=== PATIENT | male | born 1935 | race Caucasian/White ===

== ENCOUNTER 2018-03-13 21:26 | Inpatient (IN) | payer BC, MEDICARE ==
--- NOTE | 2018-03-13 21:46 | ED ---
General Adult HPI - General Chief complaint: Weakness Stated complaint: weakness Time Seen by Provider: 03/13/18 21:26 Source: patient, EMS, RN notes reviewed Mode of arrival: EMS Limitations: no limitations - History of Present Illness Initial comments: This is an 82-year-old male has a past medical history significant for a stent. Patient states he came to the emergency department up at [facility] today because of feeling weak and having diarrhea for 2 weeks. Patient was diagnosed with an end STEMI and C. diff at the other facility. Patient states he does not have any chest pain or difficulty breathing or shortness of breath. Patient denies any abdominal pain patient denies nausea vomiting at this time. Patient states currently while lying in bed he has no complaint. Patient denies headache patient denies numbness weakness. Patient denies lightheadedness dizziness or near syncopal episode - Related Data Home Medications Medication Instructions Recorded Confirmed Aspirin 81 mg PO DAILY 04/29/15 07/28/15 Fexofenadine HCl [Lisa Allergy] 180 mg PO DAILY 04/29/15 07/28/15 Isosorbide Mononitrate ER [Imdur] 30 mg PO DAILY@1300 04/29/15 07/28/15 Meclizine HCl 25 mg PO BID@1200,1800 04/29/15 07/28/15 Nitroglycerin Sl Tabs [Nitrostat] 0.4 mg SUBLINGUAL Q5M PRN 04/29/15 07/28/15 Meclizine [Antivert] 50 mg PO DAILY 07/28/15 07/28/15 Multivitamin [Men's Multi-Vitamin] 1 each PO DAILY 07/28/15 07/28/15 Sertraline [Zoloft] 50 mg PO DAILY 07/28/15 07/28/15 Simvastatin [Zocor] 20 mg PO HS 07/28/15 07/28/15 Previous Rx's Medication Instructions Recorded predniSONE 10 mg PO DAILY #40 tab 07/31/15 Allergies Allergy/AdvReac Type Severity Reaction Status Date / Time No Known Allergies Allergy Verified 07/28/15 17:39 Review of Systems ROS Statement: Those systems with pertinent positive or pertinent negative responses have been documented in the HPI. ROS Other: All systems not noted in ROS Statement are negative. Past Medical History Past Medical History: Atrial Fibrillation, Heart Failure, GERD/Reflux, Hyperlipidemia, Hypertension, Osteoarthritis (OA), Skin Disorder Additional Past Medical History / Comment(s): Crohn's, vertigo History of Any Multi-Drug Resistant Organisms: None Reported, C-DIFF Past Surgical History: Heart Catheterization, Heart Catheterization With Stent, Joint Replacement Additional Past Surgical History / Comment(s): left knee 11/2014. heart cath about 7-[address] Eduardo, lithotripsy Past Anesthesia/Blood Transfusion Reactions: No Reported Reaction Date of Last Stent Placement:: 2006 Past Psychological History: Anxiety Smoking Status: Former smoker Past Alcohol Use History: None Reported Past Drug Use History: None Reported - Past Family History Mother History Unknown: Yes Family Medical History: No Reported History Additional Family Medical History / Comment(s): never went to doctors Father History Unknown: Yes Family Medical History: No Reported History Additional Family Medical History / Comment(s): ETOH use, unknown hx General Exam - General Exam Comments Initial Comments: GENERAL: Patient is well-developed and well-nourished. Patient is nontoxic and well- hydrated and is in no acute distress. ENT: Neck is soft and supple. No significant lymphadenopathy is noted. Oropharynx is clear. Moist mucous membranes. Neck has full range of motion without eliciting any pain. EYES: The sclera were anicteric and conjunctiva were pink and moist. Extraocular movements were intact and pupils were equal round and reactive to light. Eyelids were unremarkable. PULMONARY: Unlabored respirations. Good breath sounds bilaterally. No audible rales rhonchi or wheezing was noted. CARDIOVASCULAR: There is a regular rate and rhythm without any murmurs gallops or rubs. ABDOMEN: Soft and nontender with normal bowel sounds. No palpable organomegaly was noted. There is no palpable pulsatile mass. SKIN: Skin is clear with no lesions or rashes and otherwise unremarkable. NEUROLOGIC: Patient is alert and oriented x3. Cranial nerves II through XII are grossly intact. Motor and sensory are also intact. Normal speech, volume and content. Symmetrical smile. MUSCULOSKELETAL: Normal extremities with adequate strength and full range of motion. No lower extremity swelling or edema. No calf tenderness. LYMPHATICS: No significant lymphadenopathy is noted PSYCHIATRIC: Normal psychiatric evaluation. Normal interpersonal interactions appears functionally intact in deals appropriately with others. No signs of depression. No signs of anxiety. Limitations: no limitations Course Vital Signs 05/19/18 21:29 Temperature 97.3 F L Pulse Rate 81 Respiratory 18 Rate Blood Pressure 103/58 O2 Sat by Pulse 98 Oximetry Medical Decision Making - Medical Decision Making EKG shows normal sinus rhythm at 80 bpm MS interval is 186 QRS is 82 QT interval is 426 QTC is 491. Patient's EKG shows ST segment depression in leads 1 and aVL as well as leads V3 through V6. I checked an old EKG and those changes were present in 2014. - Lab Data Result diagrams: 03/13/18 21:46 03/13/18 21:46 Lab Results 03/13/18 03/13/18 03/13/18 Range/Units 21:46 21:46 21:46 WBC 27.7 H* (3.8-10.6) k/uL RBC 4.78 (4.30-5.90) m/uL Hgb 13.3 (13.0-17.5) gm/dL Hct 39.2 (39.0-53.0) % MCV 82.0 (80.0-100.0) fL MCH 27.9 (25.0-35.0) pg MCHC 34.0 (31.0-37.0) g/dL RDW 16.4 H (11.5-15.5) % Plt Count 335 (150-450) k/uL Neutrophils % 87 % Lymphocytes % 9 % Monocytes % 3 % Eosinophils % 1 % Basophils % 0 % Neutrophils # 24.0 H (1.3-7.7) k/uL Lymphocytes # 2.4 (1.0-4.8) k/uL Monocytes # 0.8 (0-1.0) k/uL Eosinophils # 0.2 (0-0.7) k/uL Basophils # 0.0 (0-0.2) k/uL Manual Slide Review Performed Toxic Vacuolation Present Polychromasia Present Poikilocytosis (manual Present Anisocytosis Slight Sodium 138 (137-145) mmol/L Potassium 2.0 L* (3.5-5.1) mmol/L Chloride 98 (98-107) mmol/L Carbon Dioxide 27 (22-30) mmol/L Anion Gap 13 mmol/L BUN 21 H (9-20) mg/dL Creatinine 1.10 (0.66-1.25) mg/dL Est GFR (CKD-EPI)AfAm 73 (>60 ml/min/1.73 sqM) Est GFR (CKD-EPI)NonAf 63 (>60 ml/min/1.73 sqM) Glucose 113 H (74-99) mg/dL Calcium 7.7 L (8.4-10.2) mg/dL Total Bilirubin 0.6 (0.2-1.3) mg/dL AST 22 (17-59) U/L ALT 26 (21-72) U/L Alkaline Phosphatase 99 (38-126) U/L Troponin I 0.226 H* (0.000-0.034) ng/mL Total Protein 5.3 L (6.3-8.2) g/dL Albumin 2.6 L (3.5-5.0) g/dL Disposition Clinical Impression: Clostridium difficile colitis, Non-STEMI (non-ST elevated myocardial infarction ) Disposition: ADMITTED IP TO THIS HOSP Referrals: Preston Velasquez MD [Primary Care Provider] - 1-2 days Time of Disposition: 23:20
[2018-03-13 22:10] LABS: Anisocytosis Slight; Basophils % (A) 0 %; Eosinophils # (A) 0.2 k/uL (0-0.7); Eosinophils % (A) 1 %; HCT 39.2 % (39.0-53.0); HGB 13.3 gm/dL (13.0-17.5); Lymphocytes # (A) 2.4 k/uL (1.0-4.8); Lymphocytes % (A) 9 %; MCH 27.9 pg (25.0-35.0); Mean Platelet Volume 6.4; Monocytes # (A) 0.8 k/uL (0-1.0); Monocytes % (A) 3 %; Neutrophils % (A) 87 %; Platelet Count 335 k/uL (150-450); RBC 4.78 m/uL (4.30-5.90); RDW 16.4 % (11.5-15.5)
[2018-03-13 22:13] LABS: WBC 27.7 k/uL (3.8-10.6)
[2018-03-13 22:18] LABS: Albumin 2.6 g/dL (3.5-5.0); Calcium 7.7 mg/dL (8.4-10.2); Total Bilirubin 0.6 mg/dL (0.2-1.3); Total Protein 5.3 g/dL (6.3-8.2)
[2018-03-13 22:53] LABS: Polychromasia Present
[2018-03-13 22:55] LABS: Poikilocytosis (M) Present
[2018-03-13 22:56] LABS: Toxic Vacuolation Present
[2018-03-13] MEDS ORDERED: ACETAMINOPHEN TAB 325 MG TAB PO STA (22:59)
[2018-03-13] MEDS ORDERED: NITROGLYCERIN SL TABS 0.4 MG TAB SUBLINGUAL PRN (23:21)
[2018-03-13] MEDS ORDERED: HEPARIN SODIUM,PORCINE/D5W PMX 25,000 UNIT in DEXTROSE/WATER 1 500ML.BAG IV SCH (23:45)
[2018-03-14] MEDS: NITROGLYCERIN OINT 1 INCH/GM PACKET TOPICAL SCH ×3 (00:43→12:37)
[2018-03-14 04:52] LABS: Anisocytosis Slight; Basophils % (A) 0 %; Eosinophils # (A) 0.2 k/uL (0-0.7); Eosinophils % (A) 1 %; HCT 39.3 % (39.0-53.0); HGB 12.8 gm/dL (13.0-17.5); Lymphocytes # (A) 1.7 k/uL (1.0-4.8); Lymphocytes % (A) 7 %; MCH 27.4 pg (25.0-35.0); MCHC 32.5 g/dL (31.0-37.0); MCV 84.3 fL (80.0-100.0); Mean Platelet Volume 6.5; Monocytes # (A) 1.1 k/uL (0-1.0); Monocytes % (A) 4 %; Neutrophils # (A) 22.6 k/uL (1.3-7.7); Neutrophils % (A) 88 %; Platelet Count 291 k/uL (150-450); RBC 4.67 m/uL (4.30-5.90); RDW 16.5 % (11.5-15.5)
[2018-03-14 05:14] LABS: Creatine Kinase <20 U/L (55-170)
[2018-03-14 05:16] LABS: Calcium 7.6 mg/dL (8.4-10.2)
[2018-03-14 05:23] LABS: Potassium 2.1 mmol/L (3.5-5.1)
[2018-03-14 05:27] LABS: Creatine Kinase MB 0.5 ng/mL (0.0-2.4)
[2018-03-14 05:31] LABS: Troponin I 0.179 ng/mL (0.000-0.034)
[2018-03-14 05:37] LABS: WBC 25.8 k/uL (3.8-10.6)
[2018-03-14] MEDS: POTASSIUM CHLORIDE ER 20 MEQ TAB.ER PO SCH ×5 (06:15→22:03)
[2018-03-14] MEDS ORDERED: ASPIRIN 325 MG TAB PO SCH (09:00)
[2018-03-14] MEDS: metroNIDAZOLE 500 MG TAB PO SCH ×4 (09:02→20:19)
[2018-03-14] MEDS ORDERED: Potassium Replacement Protocol 1 EACH MISC MISCELLANE PRN (10:41)
[2018-03-14 12:08] LABS: Creatine Kinase <20 U/L (55-170)
[2018-03-14 12:20] LABS: Creatine Kinase MB 0.5 ng/mL (0.0-2.4)
[2018-03-14 12:35] LABS: Troponin I 0.122 ng/mL (0.000-0.034)
[2018-03-14] MEDS: POTASSIUM CHLORIDE 10 MEQ in WATER FOR INJECTION 1 100ML.BAG IVPB SCH ×3 (12:38→17:48)
--- NOTE | 2018-03-14 15:02 | P.CRDCN ---
History of Present Illness History of present illness: Mr. Rodriguez is a pleasant 82-year-old male past medical history significant for coronary artery disease status post stenting of the distal circumflex 2006, paroxysmal atrial fibrillation on long-term anticoagulation, diastolic heart failure dyslipidemia and hypertension. We've been asked to see him in consultation significant elevated troponin levels. He initially presented to [facility] with symptoms of increased weakness and diarrhea 2 weeks. At that time a troponin was checked and came to be elevated. They transferred him here on a heparin infusion for evaluation per cardiology. At the time of my exam he is seen sitting in bed comfortably in no acute distress. He denies ever having had symptoms of chest pain, shortness of breath, dizziness, palpitations, diaphoresis or nausea/vomiting. EKG on arrival reveals sinus mechanism with nonspecific ST abnormalities with upsloping ST depression in lateral leads which is consistent with previous EKG. Laboratory data reviewed, WBC 25.8, hemoglobin 12.8, platelets 291, sodium 139, potassium 2.1 after supplementation, creatinine 1.1, troponin 0.226, 0.179, 0.122. Current cardiac medications include Imdur 30 mg daily, simvastatin 20 mg daily, aspirin 81 mg daily, Lasix 40 mg twice a day and Eliquis 5 mg twice a day. Most recent echocardiogram from 2015 reveals preserved left ventricular systolic function with ejection fraction 60-65%. Review of Systems At the time of my exam: CONSTITUTIONAL: Denies fever. Denies chills. EYES: Denies blurred vision. Denies vision changes. Denies eye pain. EARS, NOSE, MOUTH & THROAT: Denies headache. Denies sore throat. Denies ear pain. CARDIOVASCULAR: Denies chest pain. Denies shortness of breath. Denies orthopnea. Denies PND. Denies palpitations. RESPIRATORY: Denies cough. GASTROINTESTINAL: Denies abdominal pain. Complains of diarrhea. Denies constipation. Denies nausea. Denies vomiting. MUSCULOSKELETAL: Denies myalgias. INTEGUMENTARY: Denies pruitis. Denies rash. NEUROLOGIC: Denies numbness. Denies tingling. Denies weakness. PSYCHIATRIC: Denies anxiety. Denies depression. ENDOCRINE: Denies fatigue. Denies weight change. Denies polydipsia. Denies polyurina. GENITOURINARY: Denies burning, hematuria or urgency with micturation. HEMATOLOGIC: Denies history of anemia. Denies bleeding. Past Medical History Past Medical History: Atrial Fibrillation, Heart Failure, GERD/Reflux, Hyperlipidemia, Hypertension, Osteoarthritis (OA), Skin Disorder Additional Past Medical History / Comment(s): Crohn's, vertigo History of Any Multi-Drug Resistant Organisms: C-DIFF Date of last positivie culture/infection: 03/14 MDRO Source:: Fecal Past Surgical History: Heart Catheterization, Heart Catheterization With Stent, Joint Replacement Additional Past Surgical History / Comment(s): left knee 11/2014. heart cath about [address] Eduardo, lithotripsy Past Anesthesia/Blood Transfusion Reactions: No Reported Reaction Date of Last Stent Placement:: 2006 Past Psychological History: Anxiety Smoking Status: Never smoker Past Alcohol Use History: None Reported Past Drug Use History: None Reported - Past Family History Mother History Unknown: Yes Family Medical History: No Reported History Additional Family Medical History / Comment(s): never went to doctors Father History Unknown: Yes Family Medical History: No Reported History Additional Family Medical History / Comment(s): ETOH use, unknown hx Medications and Allergies Home Medications Medication Instructions Recorded Confirmed Type Aspirin 81 mg PO DAILY 04/29/15 03/14/18 History Fexofenadine HCl [Lisa Allergy] 180 mg PO DAILY 04/29/15 03/14/18 History Isosorbide Mononitrate ER [Imdur] 30 mg PO DAILY 04/29/15 03/14/18 History Nitroglycerin Sl Tabs [Nitrostat] 0.4 mg SUBLINGUAL Q5M PRN 04/29/15 03/14/18 History Multivitamin [Men's Multi-Vitamin] 1 tab PO DAILY 07/28/15 03/14/18 History Sertraline [Zoloft] 50 mg PO HS 07/28/15 03/14/18 History Simvastatin [Zocor] 20 mg PO HS 07/28/15 03/14/18 History ALPRAZolam [Xanax] 0.125 mg PO HS PRN 03/14/18 03/14/18 History Apixaban [Eliquis] 5 mg PO BID 03/14/18 03/14/18 History Balsalazide Disodium [Colazal] 1,500 mg PO AC-TID 03/14/18 03/14/18 History Furosemide [Lasix] 40 mg PO BID 03/14/18 03/14/18 History Ranitidine HCl [Zantac] 150 mg PO BID PRN 03/14/18 03/14/18 History Allergies Allergy/AdvReac Type Severity Reaction Status Date / Time No Known Allergies Allergy Verified 03/14/18 13:15 Physical Exam Vitals: Vital Signs Temp Pulse Pulse Resp BP BP Pulse Ox 03/14/18 12:00 70 16 103/57 99 03/14/18 08:00 74 16 112/57 100 03/14/18 04:00 98.4 F 68 18 99/55 95 03/13/18 23:47 98.0 F 72 16 108/55 99 03/13/18 23:33 98.2 F 73 18 106/46 96 03/13/18 23:21 96 03/13/18 21:29 97.3 F L 81 18 103/58 98 Intake and Output 03/13/18 03/14/18 03/14/18 22:59 06:59 14:59 Output Total 175 Balance -175 Output: Urine 175 Other: Voiding Method Diaper Diaper # Voids 1 # Bowel Movements 1 Weight 81.647 kg 81 kg Blood pressure 130/57 heart rate 70 afebrile maintaining oxygen saturation on room air GENERAL: This is a 82-year-old male in no apparent distress at the time of my examination. HEENT: Head is atraumatic, normocephalic. Pupils are equal, round. Sclerae anicteric. Conjunctivae are clear. Mucous membranes of the mouth are moist. Neck is supple. There is no jugular venous distention. No carotid bruit is heard. LUNGS: Clear to auscultation no wheezes, rales or rhonchi. No chest wall tenderness is noted on palpation or with deep breathing. HEART: Regular rate and rhythm with systolic murmur at the base, no rubs or gallops. S1 and S2 heard. ABDOMEN: Soft, nontender. Bowel sounds are heard. No organomegaly noted. EXTREMITIES: No evidence of peripheral edema and no calf tenderness noted. VASCULAR: Radial and dorsalis pedis pulses palpated, no evidence of clubbing. NEUROLOGIC: Patient is awake, alert and oriented x3. Results 03/14/18 04:28 03/14/18 04:28 Cardiac Enzymes 03/13/18 03/13/18 03/14/18 Range/Units 21:46 21:46 04:28 AST 22 (17-59) U/L CK-MB (CK-2) 0.5 (0.0-2.4) ng/mL Troponin I 0.226 H* 0.179 H* (0.000-0.034) ng/mL 03/14/18 Range/Units 11:04 AST (17-59) U/L CK-MB (CK-2) 0.5 (0.0-2.4) ng/mL Troponin I 0.122 H* (0.000-0.034) ng/mL Coagulation 03/14/18 Range/Units 04:35 APTT 66.4 H (22.0-30.0) sec Lipids 03/14/18 Range/Units 04:28 Triglycerides 87 (<150) mg/dL Cholesterol 63 (<200) mg/dL HDL Cholesterol 21 L (40-60) mg/dL CBC 03/13/18 03/14/18 Range/Units 21:46 04:28 WBC 27.7 H* 25.8 H* (3.8-10.6) k/uL RBC 4.78 4.67 (4.30-5.90) m/uL Hgb 13.3 12.8 L (13.0-17.5) gm/dL Hct 39.2 39.3 (39.0-53.0) % Plt Count 335 291 (150-450) k/uL Comprehensive Metabolic Panel 03/13/18 03/14/18 Range/Units 21:46 04:28 Sodium 138 139 (137-145) mmol/L Potassium 2.0 L* 2.1 L* (3.5-5.1) mmol/L Chloride 98 96 L (98-107) mmol/L Carbon Dioxide 27 30 (22-30) mmol/L BUN 21 H 22 H (9-20) mg/dL Creatinine 1.10 1.10 (0.66-1.25) mg/dL Glucose 113 H 100 H (74-99) mg/dL Calcium 7.7 L 7.6 L (8.4-10.2) mg/dL AST 22 (17-59) U/L ALT 26 (21-72) U/L Alkaline Phosphatase 99 (38-126) U/L Total Protein 5.3 L (6.3-8.2) g/dL Albumin 2.6 L (3.5-5.0) g/dL Current Medications Generic Name Dose Route Start Last Admin Trade Name Freq PRN Reason Stop Dose Admin Aspirin 81 mg 03/15/18 09:00 Aspirin PO DAILY AVERY Potassium Chloride 10 meq/ IV 100 mls @ 100 mls/hr 03/14/18 12:00 03/14/18 12 :38 Solution IVPB 03/14/18 14:59 100 mls/hr Q1H AVERY Administration Metronidazole 500 mg 03/14/18 09:00 03/14/18 12:37 Flagyl PO 500 mg QID AVERY Administration Miscellaneous Information 1 each 03/14/18 10:41 Potassium Per Protocol MISCELLANE DAILY PRN Per Protocol Protocol Nitroglycerin 1 inch 03/14/18 00:00 03/14/18 12:37 Nitro-Bid Oint TOPICAL 1 inch Q6HR AVERY Administration Nitroglycerin 0.4 mg 03/13/18 23:21 Nitrostat SUBLINGUAL Q5M PRN Chest Pain Intake and Output 03/13/18 03/14/18 03/14/18 22:59 06:59 14:59 Output Total 175 Balance -175 Output: Urine 175 Other: Voiding Method Diaper Diaper # Voids 1 # Bowel Movements 1 Weight 81.647 kg 81 kg 03/14/18 04:28 03/14/18 04:28 Assessment and Plan Assessment: ASSESSMENT 1. Severe hypokalemia 2. Leukocytosis 3. Paroxysmal atrial fibrillation on long-term anticoagulation currently maintaining sinus mechanism 4. Mild troponin leak not indicative of an acute coronary event. 5. Clostridium difficile with diarrhea 2 weeks 6. History of coronary artery disease with angioplasty of the distal circumflex artery 7. Hypertension 8. Dyslipidemia PLAN Obtain 2-D echocardiogram and Doppler study to assess cardiac structure and function. Discontinue heparin infusion as this is not an acute coronary event. Replace potassium per protocol. Repeat potassium Ongoing level this evening.telemetry monitoring for an acute arrhythmia. Resume Lasix 40 mg twice a day, aspirin 81 mg daily, Zocor 20 mg daily, Imdur 30 mg daily andEliquis 5 mg BID. Ongoing medical management of leukocytosis and C. diff. Thank you kindly for this consultation. Nurse Practitioner note has been reviewed, I agree with a documented findings and plan of care. Patient was seen and examined.
[2018-03-14] MEDS: FUROSEMIDE 40 MG TAB PO SCH (16:22)
[2018-03-14] MEDS ORDERED: ALPRAZolam 0.25 MG TAB PO PRN (20:19)
[2018-03-14] MEDS: APIXABAN 5 MG TAB PO SCH (20:19)
[2018-03-14] MEDS ORDERED: NITROGLYCERIN SL TABS 0.4 MG TAB SUBLINGUAL PRN (20:19)
[2018-03-14] MEDS: ATORVASTATIN 10 MG TAB PO SCH (20:19)
[2018-03-14] MEDS ORDERED: CALCIUM CARBONATE 500 MG CHEWABLE PO PRN (20:22)
[2018-03-14] MEDS ORDERED: ONDANSETRON 4 MG/2 ML VIAL IVP PRN (20:22)
[2018-03-14] MEDS ORDERED: NALOXONE 0.4 MG/ML 1 ML VIAL IV PRN (20:22)
[2018-03-14] MEDS ORDERED: MELATONIN 3 MG TABLET PO PRN (20:22)
[2018-03-14] MEDS ORDERED: LACTATED RINGERS 1,000 ML IV SCH (20:45)
[2018-03-14] MEDS: SERTRALINE 50 MG TAB PO SCH (21:24)
--- NOTE | 2018-03-14 21:54 | HP ---
HISTORY AND PHYSICAL DATE OF ADMISSION: 03/13/18 DATE OF SERVICE: 03/14/18 PRESENTING COMPLAINT: Diarrhea, weak and tired. HISTORY OF PRESENTING COMPLAINT: This is a pleasant 82-year-old patient who was transferred from [facility] to the ER. The patient follows with Dr. Velasquez. Chronic stable medical conditions include atrial fibrillation, congestive heart failure, GERD, hypertension, hyperlipidemia, osteoarthritis, coronary artery disease with stent. The patient was then in [facility] with C diff and then was discharged. The patient continues to have diarrhea a few times a day, 2 times a day and presented there. Appetite was low, having feeling weak tired and falls. Patient also was found to have a troponin of 0.257. There was a concern for acute AK. Hence patient was transferred down here. The patient's stool is positive for C diff. The patient did tolerate some diet, feeling weak and tired. Denies any chest pain or short of breath. Just weak, tired and run down. Also having some abdominal pain. No nausea, no vomiting. REVIEW OF SYSTEMS: Constitutional: Weak and tired. HEENT: Decreased hearing. Respiratory none. Cardiovascular none. Gastrointestinal as above. Genitourinary none. Musculoskeletal: Arthritic pain in the joints. The patient has got a brace in the right knee. Hematologic: None. Lymphatics none. Psychiatry none. Neurological none. PAST MEDICAL HISTORY: Atrial fibrillation CHF, GERD, hypertension, hyperlipidemia, osteoarthritis, Crohn's, coronary artery disease with stent, recent C. diff. PAST SURGICAL HISTORY: Cardiac cath with stent, left knee replaced, heart catheterization [address] Eduardo, lithotripsy. SOCIAL HISTORY: Never smoked. Alcohol rarely. Lives at [facility]. FAMILY HISTORY: Reviewed. Noncontributory to presentation. HOME MEDICATIONS: 1. Zantac 150 mg b.i.d. p.r.n. 2. Xanax 0.125 p.o. q.h.s. p.r.n. 3. Lasix 40 mg p.o. b.i.d. 4. Lisa 180 mg p.o. daily. 5. 1500 mg p.o. a.c. t.i.d. 6. Aspirin 81 mg p.o. daily. 7. Eliquis 5 mg p.o. b.i.d. 8. Zocor 20 mg q.h.s. 9. Zoloft 50 mg q.h.s. 10.Nitrostat 0.4 sublingual q.5 p.r.n. 11.Men's multivitamin 1 tablet p.o. daily. 12.Imdur ER 30 mg p.o. daily. ALLERGIES: None. PHYSICAL EXAMINATION: Vital signs on presentation, temperature 97.3, pulse 81, respirations 18, blood pressure 113/58, pulse ox 98% on 2 L. GENERAL APPEARANCE: Average build, lying in bed, tired appearing. Eyes pupils are equal. Conjunctivae normal. HEENT: External appearance of nose and ears normal. Oral cavity dry. Hearing decreased. Neck JVD unable to assess. Mass not palpable. Respiratory effort normal. Lungs decreased breath sounds. Cardiovascular 1st and 2nd sounds no edema. ABDOMEN: Soft, minimal tenderness. No guarding or rigidity. Liver and spleen not palpable. Lymphatics: No lymph nodes palpable in the neck and axilla. Psychiatry: The patient thinks he has at the hospital, not sure about the year, month. Neurological: Pupils equal. No facial asymmetry. Power and sensation grossly intact. Extremities: Brace on the right knee. INVESTIGATIONS: White count 27.7, hemoglobin 13.3, platelets 335, potassium 2, BUN 21, creatinine 1.10, troponin 0.226, 0.179 and 0.122. Albumin 2.6. C diff positive. ASSESSMENT: 1. Acute C diff colitis in a patient recently treated for the same with relapse. 2. Troponin leak probably from hemodynamic instability. I doubt acute myocardial infarction. 3. Hypoalbuminemia, probably an acute phase reactant. 4. Severe hypokalemia from diarrhea. 5. Paroxysmal atrial fibrillation currently in sinus rhythm. 6. Chronic congestive heart failure EF not known. 7. Gastroesophageal reflux disease. 8. Essential hypertension. 9. Hyperlipidemia. 10.Primary osteoarthritis. 11.Coronary artery disease with stent. 12.Gait dysfunction uses a walker. PLAN: At this point, patient will be started on oral vancomycin. Home medications resumed. The patient will be gently hydrated. Will be care careful given that the patient has a history of congestive heart failure. Care was discussed with the patient. Questions were answered. Copy to Dr. Velasquez. Potassium will be aggressively replaced. MMODL / IJN: [id number] /
[2018-03-14] MEDS ORDERED: LACTATED RINGERS 1,000 ML with POTASSIUM CHLORIDE 20 MEQ IV SCH ×2 (22:00)
[2018-03-14] MEDS: VANCOMYCIN ORAL SOLUTION 250 MG/5 ML BOTTLE PO SCH ×2 (22:02→23:09)
[2018-03-15] MEDS: POTASSIUM CHLORIDE ER 20 MEQ TAB.ER PO SCH ×5 (01:43→22:10)
[2018-03-15] MEDS: VANCOMYCIN ORAL SOLUTION 250 MG/5 ML BOTTLE PO SCH ×4 (05:12→23:57)
[2018-03-15] MEDS: BALSALAZIDE DISODIUM 750 MG CAPSULE PO SCH ×3 (06:07→18:27)
[2018-03-15 07:47] LABS: Calcium 7.7 mg/dL (8.4-10.2); Potassium 3.2 mmol/L (3.5-5.1)
[2018-03-15] MEDS ORDERED: ASPIRIN 81 MG PO SCH (09:00)
[2018-03-15] MEDS: ISOSORBIDE MONONITRATE ER 30 MG TAB.ER.24H PO SCH ×2 (09:33→11:22)
[2018-03-15] MEDS: APIXABAN 5 MG TAB PO SCH ×2 (09:33→21:13)
[2018-03-15] MEDS: ASPIRIN 81 MG PO SCH (09:33)
[2018-03-15] MEDS ORDERED: Potassium Replacement Protocol 1 EACH MISC MISCELLANE PRN (09:47)
[2018-03-15] MEDS: FUROSEMIDE 40 MG TAB PO SCH ×2 (11:41→16:20)
[2018-03-15] MEDS: POTASSIUM CHLORIDE 10 MEQ in WATER FOR INJECTION 1 100ML.BAG IVPB SCH ×2 (11:41→12:38)
[2018-03-15] MEDS: LACTATED RINGERS 1,000 ML IV SCH (14:18)
--- NOTE | 2018-03-15 15:31 | P.PN ---
Subjective Progress Note Date: 03/15/18 Mr. Rodriguez is a pleasant 82-year-old male past medical history significant for coronary artery disease status post stenting of the distal circumflex 2006, paroxysmal atrial fibrillation on long-term anticoagulation, diastolic heart failure dyslipidemia and hypertension. We've been asked to see him in consultation significant elevated troponin levels. He initially presented to [facility] with symptoms of increased weakness and diarrhea 2 weeks. At that time a troponin was checked and came to be elevated. They transferred him here on a heparin infusion for evaluation per cardiology. At the time of my exam he is seen sitting in bed comfortably in no acute distress. He denies ever having had symptoms of chest pain, shortness of breath, dizziness, palpitations, diaphoresis or nausea/vomiting.EKG on arrival reveals sinus mechanism with nonspecific ST abnormalities with upsloping ST depression in lateral leads which is consistent with previous EKG. Laboratory data reviewed, WBC 25.8, hemoglobin 12.8, platelets 291, sodium 139, potassium 2.1 after supplementation, creatinine 1.1, troponin 0.226, 0.179, 0.122. Continue current cardiac medications include Imdur 30 mg daily, simvastatin 20 mg daily, aspirin 81 mg daily, Lasix 40 mg twice a day and Eliquis 5 mg twice a day.Most recent echocardiogram from 2014 reveals preserved left ventricular systolic function with ejection fraction 60-65%. 03/15/2018 Patient was seen and examined this morning, he is positive for C. diff. Echocardiogram with Doppler study remains pending currently in normal sinus rhythm. I pressure 100/50 with a heart rate in the 60s. Sodium 136, potassium 3.2 which we have replaced. Objective - Vital Signs Vital signs: Vital Signs Temp 97.1 F L 03/15/18 12:00 Pulse 63 03/15/18 12:00 Resp 16 03/15/18 12:00 BP 99/51 03/15/18 12:00 Pulse Ox 97 03/15/18 12:00 Intake & Output 03/14/18 03/15/18 03/15/18 18:59 06:59 18:59 Intake Total 1620 640 700 Balance 1620 640 700 Weight 81 kg Intake: IV 400 Lactated Ringers 1,000 ml 400 @ 50 mls/hr IV .Q20H [facility] Rx#:[id number] Intake, IV Titration 400 Amount Heparin Sodium,Porcine/ 0 D5w Pmx 25,000 unit In Dextrose/Water 1 500ml. bag @ 12 UNITS/KG/HR 19. 59 mls/hr IV .Q24H [facility] Rx #:[id number] Lactated Ringers 1,000 ml 400 @ 50 mls/hr IV .[id number] [facility] with Potassium Chloride 20 meq Rx#: [id number] Oral 1620 240 300 Other: Voiding Method Diaper Diaper # Voids 1 # Bowel Movements 2 3 - Exam GENERAL: This is a 82-year-old male in no apparent distress at the time of my examination. HEENT: Head is atraumatic, normocephalic. Pupils are equal, round. Sclerae anicteric. Conjunctivae are clear. Mucous membranes of the mouth are moist. Neck is supple. There is no jugular venous distention. No carotid bruit is heard. LUNGS: Clear to auscultation no wheezes, rales or rhonchi. No chest wall tenderness is noted on palpation or with deep breathing. HEART: Regular rate and rhythm with systolic murmur at the base, no rubs or gallops. S1 and S2 heard. ABDOMEN: Soft, nontender. Bowel sounds are heard. No organomegaly noted. EXTREMITIES: No evidence of peripheral edema and no calf tenderness noted. VASCULAR: Radial and dorsalis pedis pulses palpated, no evidence of clubbing. NEUROLOGIC: Patient is awake, alert and oriented x3. - Labs CBC & Chem 7: 03/14/18 04:28 03/15/18 06:24 Labs: Abnormal Lab Results - Last 24 Hours (Table) 03/14/18 03/15/18 Range/Units 19:52 06:24 Sodium 136 L (137-145) mmol/L Potassium 2.4 L* 3.2 L (3.5-5.1) mmol/L Calcium 7.7 L (8.4-10.2) mg/dL Assessment and Plan Plan: ASSESSMENT 1. Severe hypokalemia 2. Leukocytosis 3. Paroxysmal atrial fibrillation on long-term anticoagulation currently maintaining sinus mechanism 4. Mild troponin leak not indicative of an acute coronary event. 5. Clostridium difficile with diarrhea 2 weeks 6. History of coronary artery disease with angioplasty of the distal circumflex artery 7. Hypertension 8. Dyslipidemia Plan We will review the echocardiogram with Doppler study. Continue to replace potassium. If the patient's LV function is normal we will follow him along with you now on an as-needed basis only, please don't hesitate to call with any questions. DNP note has been reviewed, I agree with a documented findings and plan of care. Patient was seen and examined.
--- NOTE | 2018-03-15 16:55 | PN ---
PROGRESS NOTE DATE OF SERVICE: 03/15/2018 PRESENTING COMPLAINT: Diarrhea, weak and tired. INTERVAL HISTORY: This is a patient who presented with acute C difficile colitis and severe hypokalemia. Abdominal pain is better; still having loose stools, though a shade better. Feeling weak and tired. Did tolerate some diet. REVIEW OF SYSTEMS: Done for constitutional, cardiovascular, GI, pulmonary; relevant findings as above. CURRENT MEDICATIONS: Reviewed. They include vancomycin. PHYSICAL EXAMINATION: Temperature 97.1, pulse 63, respiration 16, blood pressure 99/51, pulse ox 97% on room air. GENERAL APPEARANCE: Lying in bed, awake. Tired-appearing. EYES: Pupils equal. Conjunctivae normal. HEENT: External appearance of nose and ears normal. Oral cavity normal. Hearing decreased. NECK: JVD unable to assess. Mass not palpable. RESPIRATORY: Effort normal. LUNGS: Decreased breath sounds. CARDIOVASCULAR: First and second sounds normal. No edema. ABDOMEN: Soft. No tenderness. Liver and spleen not palpable. PSYCHIATRY: Awake. Answering simple questions. INVESTIGATIONS: Potassium 3.2, BUN 18, creatinine 1.0. ASSESSMENT: 1. Acute severe Clostridium difficile colitis with a relapse; patient recently treated for the same. 2. Troponin leak, probably from hemodynamic instability. Doubt acute myocardial infarction. 3. Hypoalbuminemia, probably an acute phase reactant. 4. Severe hypokalemia from diarrhea, slow to respond. 5. Paroxysmal atrial fibrillation, currently in sinus rhythm. 6. Chronic congestive heart failure, ejection fraction not known. 7. Gastroesophageal reflux disease. 8. Essential hypertension. 9. Hyperlipidemia. 10.Primary osteoarthritis. 11.Coronary artery disease with stent. 12.Gait dysfunction; uses a walker. PLAN: Patient has responded somewhat. Continue current medication and treatment plan, including vancomycin. Potassium is being aggressively replaced. Care was discussed with the patient. MMODL / IJN: [id number] /
--- NOTE | 2018-03-15 18:43 | ECHOF ---
Referral Reason:elevated troponin, weakness MEASUREMENTS -------- HEIGHT: 172.7 cm WEIGHT: 80.7 kg BP: 105/57 IVSd: 1.4 cm (0.6 - 1.1) LVIDd: 4.2 cm (3.9 - 5.3) LVPWd: 1.6 cm (0.6 - 1.1) IVSs: 1.7 cm LVIDs: 2.2 cm LVPWs: 1.3 cm LA Diam: 3.8 cm (2.7 - 3.8) LAESV Index (A-L): 20.09 ml/m Ao Diam: 3.0 cm (2.0 - 3.7) AV Cusp: 1.8 cm (1.5 - 2.6) LA Diam: 4.2 cm (2.7 - 3.8) MV EXCURSION: 22.256 mm (> 18.000) MV EF SLOPE: 102 mm/s (70 - 150) EPSS: 0.5 cm MV E Toro: 0.52 m/s MV DecT: 179 ms MV A Toro: 0.56 m/s MV E/A Ratio: 0.94 AR PHT: 576 ms RAP: 5.00 mmHg RVSP: 30.55 mmHg FINDINGS -------- Sinus rhythm. This was a technically adequate study. The left ventricular size is normal. There is mild concentric left ventricular hypertrophy. Overa ll left ventricular systolic function is low-normal with, an EF between 50 - 55 %. The right ventricle is normal in size. The left atrial size is normal. The right atrial size is normal. There is mild aortic valve sclerosis. There is mild aortic regurgitation. Mild mitral regurgitation is present. Mild tricuspid regurgitation present. There is no evidence of pulmonary hypertension. The right v entricular systolic pressure, as measured by Doppler, is 30.55mmHg. There is no pulmonic regurgitation present. The aortic root size is normal. There is no pericardial effusion. CONCLUSIONS -------- 1. The left ventricular size is normal. 2. There is mild concentric left ventricular hypertrophy. 3. Overall left ventricular systolic function is low-normal with, an EF between 50 - 55 %. 4. There is mild aortic valve sclerosis. 5. There is mild aortic regurgitation. 6. Mild mitral regurgitation is present. 7. Mild tricuspid regurgitation present. 8. There is no evidence of pulmonary hypertension. 9. The right ventricular systolic pressure, as measured by Doppler, is 30.55mmHg. 10. There is no pulmonic regurgitation present. 11. The aortic root size is normal. 12. There is no pericardial effusion. FONDANT MACHINE OPERATOR: Anny Dye RDCS
[2018-03-15] MEDS ORDERED: CHERRY FLAVOR 60 ML BOTTLE PO SCH (19:00)
[2018-03-15] MEDS: ATORVASTATIN 10 MG TAB PO SCH (21:13)
[2018-03-15] MEDS: SERTRALINE 50 MG TAB PO SCH (21:13)
[2018-03-15] MEDS: CHERRY FLAVOR 60 ML BOTTLE PO SCH (23:57)
[2018-03-16] MEDS: POTASSIUM CHLORIDE ER 20 MEQ TAB.ER PO SCH ×2 (02:07→03:39)
[2018-03-16] MEDS: CHERRY FLAVOR 60 ML BOTTLE PO SCH ×3 (06:16→17:17)
[2018-03-16] MEDS: VANCOMYCIN ORAL SOLUTION 250 MG/5 ML BOTTLE PO SCH ×3 (06:16→17:17)
[2018-03-16] MEDS: BALSALAZIDE DISODIUM 750 MG CAPSULE PO SCH ×3 (06:16→17:17)
[2018-03-16 06:37] LABS: Anisocytosis Slight; Basophils # (A) 0.1 k/uL (0-0.2); Basophils % (A) 0 %; Eosinophils # (A) 0.7 k/uL (0-0.7); Eosinophils % (A) 4 %; HCT 38.9 % (39.0-53.0); HGB 12.4 gm/dL (13.0-17.5); Lymphocytes # (A) 1.9 k/uL (1.0-4.8); Lymphocytes % (A) 12 %; MCH 27.5 pg (25.0-35.0); MCHC 31.9 g/dL (31.0-37.0); MCV 86.4 fL (80.0-100.0); Mean Platelet Volume 6.4; Monocytes # (A) 0.6 k/uL (0-1.0); Monocytes % (A) 4 %; Neutrophils # (A) 12.4 k/uL (1.3-7.7); Neutrophils % (A) 78 %; Platelet Count 267 k/uL (150-450); RDW 16.4 % (11.5-15.5); WBC 15.9 k/uL (3.8-10.6)
[2018-03-16 06:50] LABS: Anion Gap 6 mmol/L; Blood Urea Nitrogen 16 mg/dL (9-20); Calcium 7.6 mg/dL (8.4-10.2); Carbon Dioxide 29 mmol/L (22-30); Chloride 99 mmol/L (98-107); Glucose 93 mg/dL (74-99); Potassium 4.2 mmol/L (3.5-5.1); Sodium 134 mmol/L (137-145)
[2018-03-16] MEDS: FUROSEMIDE 40 MG TAB PO SCH ×2 (08:43→17:17)
[2018-03-16] MEDS: ASPIRIN 81 MG PO SCH (08:43)
[2018-03-16] MEDS: APIXABAN 5 MG TAB PO SCH ×2 (08:43→20:04)
[2018-03-16] MEDS: LACTATED RINGERS 1,000 ML IV SCH (08:45)
[2018-03-16] MEDS: ATORVASTATIN 10 MG TAB PO SCH (20:04)
[2018-03-16] MEDS: SERTRALINE 50 MG TAB PO SCH (20:04)
--- NOTE | 2018-03-16 22:42 | PN ---
PROGRESS NOTE DATE OF SERVICE: 03/16/2018 PRESENTING COMPLAINT: C. diff. INTERVAL HISTORY: This patient presented with acute C. diff. colitis, this was a 2nd episode, and severe hypokalemia. Abdominal pain is better. Diarrhea started to back off in frequency. Looks a bit better. REVIEW OF SYSTEMS: Done for constitutional, cardiovascular, GI, pulmonary; relevant findings as above. CURRENT MEDICATIONS: Reviewed that include oral vancomycin. EXAMINATION: Temperature 96.9, pulse 63, respirations 18, blood pressure 102/56, pulse ox 95% on room air. GENERAL APPEARANCE: Lying in bed, more perky. EYES: Pupils equal. Conjunctivae normal. HEENT: External nose and ears normal. Oral cavity normal. Decreased hearing. NECK: JVD not raised. Mass not palpable. RESPIRATORY: Effort normal. LUNGS: Decreased breath sounds. CARDIOVASCULAR: First and second sounds normal. No edema. ABDOMEN: Soft, no tenderness. Liver and spleen not palpable. PSYCHIATRY: Awake, answering simple questions. INVESTIGATIONS: White count 15.9, hemoglobin 12.4. Potassium 4.2. ASSESSMENT: 1. Acute severe Clostridium difficile colitis with relapse, slowly improving. The white count is coming down and diarrhea frequency has also started to come down. 2. Troponin leak probably from hemodynamic instability. Acute myocardial infarction felt to be unlikely. 3. Hypoalbuminemia, probably is an acute phase reactant. 4. Severe hypokalemia from diarrhea, improved. 5. Paroxysmal atrial fibrillation, currently in sinus rhythm. 6. Chronic congestive heart failure, ejection fraction not known. 7. Gastroesophageal reflux disease. 8. Essential hypertension. 9. Hyperlipidemia. 10.Primary osteoarthritis. 11.Coronary artery disease with history of stent. 12.Gait issues, uses a walker. PLAN: Continue current medication and treatment plan. Care was discussed with the patient. Follow. MMODL / IJN: [id number] /
[2018-03-17] MEDS: CHERRY FLAVOR 60 ML BOTTLE PO SCH ×5 (00:03→23:43)
[2018-03-17] MEDS: VANCOMYCIN ORAL SOLUTION 250 MG/5 ML BOTTLE PO SCH ×5 (00:03→23:43)
[2018-03-17] MEDS: LACTATED RINGERS 1,000 ML IV SCH (05:27)
[2018-03-17] MEDS: BALSALAZIDE DISODIUM 750 MG CAPSULE PO SCH ×3 (08:12→17:30)
[2018-03-17] MEDS: APIXABAN 5 MG TAB PO SCH ×2 (08:12→21:32)
[2018-03-17] MEDS: ASPIRIN 81 MG PO SCH (08:12)
[2018-03-17] MEDS: FUROSEMIDE 40 MG TAB PO SCH ×2 (08:13→15:53)
[2018-03-17 08:57] LABS: Anion Gap 10 mmol/L; Blood Urea Nitrogen 19 mg/dL (9-20); Calcium 7.8 mg/dL (8.4-10.2); Carbon Dioxide 26 mmol/L (22-30); Chloride 102 mmol/L (98-107); Glucose 88 mg/dL (74-99); Potassium 4.1 mmol/L (3.5-5.1); Sodium 138 mmol/L (137-145)
[2018-03-17 14:57] VITALS: BMI 27.0
--- NOTE | 2018-03-17 18:28 | PN ---
PROGRESS NOTE DATE OF SERVICE: 03/17/2018. PRESENTING COMPLAINT: Diarrhea. INTERVAL HISTORY: This patient presented with acute C diff colitis, diarrhea second episode. Appetite is getting better. Diarrhea frequency is coming down. The patient did walk a bit with physical therapy. Overall feels better. REVIEW OF SYSTEMS: Done for constitutional, cardiovascular, GI, pulmonary; relevant findings as above. CURRENT MEDICATIONS: Reviewed, that include vancomycin. PHYSICAL EXAMINATION: Temperature 98, pulse 60, respiratory 18, blood pressure 111/50, pulse ox 94% on room air. GENERAL APPEARANCE: Sitting up, awake. EYES: PERRLA. Conjunctivae normal. HEENT: External appearance of ears and nose normal. Normal oral cavity. Decreased hearing. NECK: JVD not raised. Mass not palpable. Respiratory effort normal. LUNGS: Decreased breath sounds. CARDIOVASCULAR: 1st and 2nd heart sounds. No edema. ABDOMEN: Soft, nontender. Liver spleen not palpable. PSYCHIATRY: Alert, oriented x3. PSYCHIATRY: Awake, answering questions appropriately. INVESTIGATIONS: Potassium 4 1, BUN and creatinine normal. MMODL / IJN: [id number] /
[2018-03-17] MEDS: ATORVASTATIN 10 MG TAB PO SCH (21:32)
[2018-03-17] MEDS: SERTRALINE 50 MG TAB PO SCH (21:33)
[2018-03-18] MEDS: LACTATED RINGERS 1,000 ML IV SCH ×2 (06:15→17:43)
[2018-03-18] MEDS: CHERRY FLAVOR 60 ML BOTTLE PO SCH ×4 (06:15→23:46)
[2018-03-18] MEDS: VANCOMYCIN ORAL SOLUTION 250 MG/5 ML BOTTLE PO SCH ×4 (06:15→23:46)
[2018-03-18 06:18] VITALS: RESP 16
[2018-03-18 07:53] LABS: Anion Gap 7 mmol/L; Blood Urea Nitrogen 19 mg/dL (9-20); Calcium 7.8 mg/dL (8.4-10.2); Carbon Dioxide 27 mmol/L (22-30); Chloride 102 mmol/L (98-107); Glucose 91 mg/dL (74-99); Potassium 3.9 mmol/L (3.5-5.1); Sodium 136 mmol/L (137-145)
[2018-03-18] MEDS: APIXABAN 5 MG TAB PO SCH ×2 (08:38→20:24)
[2018-03-18] MEDS: FUROSEMIDE 40 MG TAB PO SCH ×2 (08:38→17:40)
[2018-03-18] MEDS: BALSALAZIDE DISODIUM 750 MG CAPSULE PO SCH ×3 (08:38→17:40)
[2018-03-18] MEDS: ASPIRIN 81 MG PO SCH (08:38)
--- NOTE | 2018-03-18 18:23 | PN ---
PROGRESS NOTE DATE OF SERVICE: 03/18/2018 PRESENTING COMPLAINT: Diarrhea. INTERVAL HISTORY: This patient presented with acute C difficile colitis. That is getting better. Patient overall is getting better, tolerating a diet, walking with Therapy. REVIEW OF SYSTEMS: Done for constitutional, cardiovascular, GI, pulmonary; relevant findings as above. CURRENT MEDICATIONS: Reviewed. They include vancomycin. PHYSICAL EXAMINATION: Temperature 98, pulse 75, respiration 16, blood pressure 114/62, pulse ox 97% on room air. GENERAL APPEARANCE: Lying in bed, awake. EYES: Pupils equal. Conjunctivae normal. HEENT: External appearance of nose and ears normal. Oral cavity normal. Decreased hearing. NECK: JVD not raised. Mass not palpable. RESPIRATORY: Effort normal. LUNGS: Decreased breath sounds. CARDIOVASCULAR: First and second sounds normal. No edema. ABDOMEN: Soft, non-tender. Liver and spleen not palpable. PSYCHIATRY: Alert and oriented x3. Mood and affect normal. INVESTIGATIONS: White count 3.9. BUN and creatinine are normal. ASSESSMENT: 1. Acute severe Clostridium difficile colitis with a relapse; continues to improve slowly. 2. Troponin leak, probably from hemodynamic instability. 3. Hypoalbuminemia, probably an acute phase reactant. 4. Severe hypokalemia from diarrhea, improved. 5. Paroxysmal atrial fibrillation, currently in sinus rhythm. 6. Chronic congestive heart failure; ejection fraction not known. 7. Gastroesophageal reflux disease. 8. Essential hypertension. 9. Hyperlipidemia. 10.Primary osteoarthritis. 11.Coronary artery disease with a history of stent. 12.Gait issues; uses a walker. PLAN: Patient continues to improve. Continue current medication and treatment plan and follow. MMODL / IJN: [id number] /
--- NOTE | 2018-03-18 18:23 | PN ---
PROGRESS NOTE ADDENDUM: DATE OF SERVICE: March 17, 2018. ASSESSMENT: 1. Acute severe C diff colitis, improving. 2. Troponin leak, felt to be from hemodynamic instability. 3. Hypoalbuminemia as an acute phase reactant. 4. Severe hypokalemia from diarrhea, improved. 5. Paroxysmal atrial fibrillation currently in sinus rhythm. 6. Chronic congestive heart failure, ejection fraction not known. 7. Gastroesophageal reflux disease. 8. Essential hypertension. 9. Hyperlipidemia. 10.Primary osteoarthritis. 11.Coronary artery disease with history of stent. 12.Gait dysfunction uses a walker. PLAN: Continue current medication and treatment plan. Patient is slowly improving. This is an addendum for progress note on March 17, 2018. MMODL / IJN: [id number] /
[2018-03-18] MEDS: ATORVASTATIN 10 MG TAB PO SCH (20:24)
[2018-03-18] MEDS: SERTRALINE 50 MG TAB PO SCH (20:24)
[2018-03-19] MEDS: VANCOMYCIN ORAL SOLUTION 250 MG/5 ML BOTTLE PO SCH ×2 (06:05→12:36)
[2018-03-19] MEDS: CHERRY FLAVOR 60 ML BOTTLE PO SCH ×2 (06:25→12:36)
[2018-03-19 06:48] VITALS: BP 128/61; PULSE 73; TEMP 98.3
[2018-03-19 07:13] LABS: Calcium 8.2 mg/dL (8.4-10.2)
[2018-03-19] MEDS: APIXABAN 5 MG TAB PO SCH (09:07)
[2018-03-19] MEDS: FUROSEMIDE 40 MG TAB PO SCH ×2 (09:07→16:14)
[2018-03-19] MEDS: ASPIRIN 81 MG PO SCH (09:07)
[2018-03-19] MEDS: BALSALAZIDE DISODIUM 750 MG CAPSULE PO SCH ×2 (09:08→12:38)
--- NOTE | 2018-03-19 15:03 | DS ---
DISCHARGE SUMMARY DATE OF ADMISSION: 03/13/2018. DATE OF DISCHARGE: 03/19/2018 FINAL DIAGNOSES: 1. Acute severe Clostridium difficile colitis with relapse, improved. 2. Troponin leak probably from hemodynamic instability. 3. Hypoalbuminemia, probably an acute phase reactant. 4. Severe hyperkalemia from diarrhea, improved. 5. Paroxysmal atrial fibrillation in non-sinus rhythm. 6. Chronic congestive heart failure from diastolic dysfunction. Ejection fraction 50%- 55%. 7. Gastroesophageal reflux disease. 8. Essential hypertension. 9. Hyperlipidemia. 10.Primary osteoarthritis. 11.Coronary artery disease with history of stent. 12.Gait dysfunction, uses a walker. HOSPITAL COURSE: This very pleasant gentleman presented with diarrhea, weak, tired. Initially, there was a concern for acute DE felt to be from hemodynamic mismatch. Patient was positive for C diff, treated Vancomycin, has responded very well down to only 1 or 2 formed stools a day. Tolerating a diet, up and about, tolerating his diet. [id number] EXAMINATION: Lungs are clear. ABDOMEN: Soft, nontender. Patient's BUN and creatinine are normal. DISCHARGE MEDICATIONS: 1. Aspirin 81 mg a day. 2. Imdur ER 30 mg daily. 3. Nitrostat 0.4 sublingual q.5 p.r.n. 4. Multivitamin 1 tablet p.o. daily. 5. Zoloft 50 mg q.h.s. 6. Zocor 20 mg q.h.s. 7. Xanax 0.125 p.o. q.h.s. p.r.n. 8. Eliquis 5 mg p.o. b.i.d. 9. Clozaril 1500 mg p.o. a.c. t.i.d. 10.Lasix 40 mg b.i.d. 11.Zantac 150 mg p.o. b.i.d. 12.Vancomycin 250 mg q.6 for 10 days. Patient should have a CBC, BMP in 3 to [address] Velasquez in 3 days . Patient is safe to go back to [facility] as diarrhea is well controlled. He is not infective anymore. MMODL / IJN: [id number] /
== END 2018-03-19 17:40 | DRG 372 ==
LOC: EC 21:26 → 6SEL 22:32 → 5MS5E 03-17 00:39
PROVIDERS: ADMIT Hospitalist; ATTEND Hospitalist
DX: A04.71 Enterocolitis due to Clostridium difficile, recurrent (principal); I50.32 Chronic diastolic (congestive) heart failure; K50.90 Crohn's disease, unspecified, without complications; E78.5 Hyperlipidemia, unspecified; E87.5 Hyperkalemia; E87.6 Hypokalemia; I11.0 Hypertensive heart disease with heart failure; I25.10 Atherosclerotic heart disease of native coronary artery without angina pectoris; I48.0 Paroxysmal atrial fibrillation; K21.9 Gastro-esophageal reflux disease without esophagitis; M19.91 Primary osteoarthritis, unspecified site; Z79.01 Long term (current) use of anticoagulants; Z79.82 Long term (current) use of aspirin; Z79.899 Other long term (current) drug therapy; Z87.891 Personal history of nicotine dependence; Z95.5 Presence of coronary angioplasty implant and graft; R77.8 Other specified abnormalities of plasma proteins
CPT/HCPCS: 36415; 80048; 80053; 80061; 82550; 82553; 83735; 84132; 84484; 85025; 85730; 87324; 93005; 93306; 94760; 99285

== ENCOUNTER 2018-04-06 12:10 | Emergency (ER) | payer MEDICARE ==
[2018-04-06] MEDS ORDERED: SODIUM CHLORIDE 0.9% 1,000 ML IV STA (12:17)
[2018-04-06] MEDS ORDERED: LORazepam 2 MG/ML INJ IV STA (12:17)
[2018-04-06] MEDS ORDERED: ONDANSETRON 4 MG/2 ML VIAL IVP STA (12:17)
--- NOTE | 2018-04-06 12:52 | ED ---
General Adult HPI - General Chief complaint: Dizziness Stated complaint: dizziness Time Seen by Provider: 04/06/18 12:17 Source: patient, EMS, RN notes reviewed, old records reviewed Mode of arrival: EMS Limitations: physical limitation - History of Present Illness Initial comments: This is an 82-year-old male to the ER for evaluation. Patient coming in for evaluation of anxiety nausea vomiting right leg pain. Patient currently going through rehab, was getting rehab today and began to have after rehab severe weakness, right leg pain nausea and vomiting. Patient became very nervous that his right leg had some issue with had some problem with it and it might be broken. In the right knee. Patient denies any chest pain, but denies abdominal pain. Patient states she was feeling well prior to rehab - Related Data Home Medications Medication Instructions Recorded Confirmed Aspirin 81 mg PO DAILY 04/29/15 04/06/18 Isosorbide Mononitrate ER [Imdur] 30 mg PO HS 04/29/15 04/06/18 Nitroglycerin Sl Tabs [Nitrostat] 0.4 mg SUBLINGUAL Q5M PRN 04/29/15 04/06/18 Multivitamin [Men's Multi-Vitamin] 2 tab PO DAILY 07/28/15 04/06/18 Sertraline [Zoloft] 50 mg PO HS 07/28/15 04/06/18 Simvastatin [Zocor] 20 mg PO HS 07/28/15 04/06/18 ALPRAZolam [Xanax] 0.25 mg PO HS PRN 03/14/18 04/06/18 Apixaban [Eliquis] 5 mg PO BID 03/14/18 04/06/18 Balsalazide Disodium [Colazal] 1,500 mg PO AC-TID 03/14/18 04/06/18 Ranitidine HCl [Zantac] 150 mg PO BID PRN 03/14/18 04/06/18 Fexofenadine HCl [Lisa Allergy] 180 mg PO DAILY PRN 04/06/18 04/06/18 Furosemide [Lasix] 20 mg PO BID 04/06/18 04/06/18 Mupirocin Calcium 2% Cream 1 applic TOPICAL DAILY 04/06/18 04/06/18 [Bactroban 2% Cream] Potassium Chloride [K-Tab ER] 20 meq PO DAILY 04/06/18 04/06/18 Allergies Allergy/AdvReac Type Severity Reaction Status Date / Time No Known Allergies Allergy Verified 04/06/18 12:25 Review of Systems ROS Statement: Those systems with pertinent positive or pertinent negative responses have been documented in the HPI. ROS Other: All systems not noted in ROS Statement are negative. Past Medical History Past Medical History: Atrial Fibrillation, Heart Failure, GERD/Reflux, Hyperlipidemia, Hypertension, Osteoarthritis (OA), Skin Disorder Additional Past Medical History / Comment(s): Crohn's, vertigo History of Any Multi-Drug Resistant Organisms: C-DIFF Date of last positivie culture/infection: 03/14/18 MDRO Source:: Stool Past Surgical History: Heart Catheterization, Heart Catheterization With Stent, Joint Replacement Additional Past Surgical History / Comment(s): left knee 11/2014. heart cath about [address] Eduardo, lithotripsy Past Anesthesia/Blood Transfusion Reactions: No Reported Reaction Date of Last Stent Placement:: 2006 Past Psychological History: Anxiety Smoking Status: Never smoker Past Alcohol Use History: None Reported Past Drug Use History: None Reported - Past Family History Mother History Unknown: Yes Family Medical History: No Reported History Additional Family Medical History / Comment(s): never went to doctors Father History Unknown: Yes Family Medical History: No Reported History Additional Family Medical History / Comment(s): ETOH use, unknown hx General Exam Limitations: physical limitation General appearance: alert, in no apparent distress Head exam: Present: atraumatic, normocephalic, normal inspection Eye exam: Present: normal appearance, PERRL, EOMI. Absent: scleral icterus, conjunctival injection, periorbital swelling ENT exam: Present: normal exam, mucous membranes moist Neck exam: Present: normal inspection. Absent: tenderness, meningismus, lymphadenopathy Respiratory exam: Present: normal lung sounds bilaterally. Absent: respiratory distress, wheezes, rales, rhonchi, stridor Cardiovascular Exam: Present: regular rate, normal rhythm, normal heart sounds. Absent: systolic murmur, diastolic murmur, rubs, gallop, clicks GI/Abdominal exam: Present: soft, normal bowel sounds. Absent: distended, tenderness, guarding, rebound, rigid Extremities exam: Present: normal inspection, full ROM, normal capillary refill. Absent: tenderness, pedal edema, joint swelling, calf tenderness Back exam: Present: normal inspection Neurological exam: Present: alert, oriented X3, CN II-XII intact Psychiatric exam: Present: normal affect, normal mood Skin exam: Present: warm, dry, intact, normal color. Absent: rash Course Vital Signs 04/06/18 12:10 Temperature 97.0 F L Pulse Rate 64 Respiratory 22 Rate Blood Pressure 135/65 O2 Sat by Pulse 100 Oximetry - Reevaluation(s) Reevaluation #1: 04/06/18 13:32 Nausea vomiting is resolved EKG Findings - EKG Comments: EKG Findings:: EKG shows sinus rhythm rate of 63, IN 194, QRS 72, QTC 419 Medical Decision Making - Medical Decision Making 82 male the ER for evaluation of positive nausea vomiting, and anxiety attack secondary to stressful rehabilitation today. Patient has no injuries nausea vomiting is resolved labwork is normal, patient can be discharged home, currently no complaints - Lab Data Result diagrams: 04/06/18 12:36 04/06/18 12:36 Lab Results 04/06/18 04/06/18 04/06/18 Range/Units 12:36 12:36 12:36 WBC 11.1 H (3.8-10.6) k/uL RBC 4.50 (4.30-5.90) m/uL Hgb 12.7 L (13.0-17.5) gm/dL Hct 39.0 (39.0-53.0) % MCV 86.7 (80.0-100.0) fL MCH 28.2 (25.0-35.0) pg MCHC 32.5 (31.0-37.0) g/dL RDW 17.0 H (11.5-15.5) % Plt Count 309 (150-450) k/uL Neutrophils % 71 % Lymphocytes % 13 % Monocytes % 6 % Eosinophils % 8 % Basophils % 1 % Neutrophils # 7.9 H (1.3-7.7) k/uL Lymphocytes # 1.4 (1.0-4.8) k/uL Monocytes # 0.6 (0-1.0) k/uL Eosinophils # 0.9 H (0-0.7) k/uL Basophils # 0.1 (0-0.2) k/uL Anisocytosis Slight PT (9.0-12.0) sec INR (<1.2) APTT (22.0-30.0) sec Sodium 138 (137-145) mmol/L Potassium 4.4 (3.5-5.1) mmol/L Chloride 104 (98-107) mmol/L Carbon Dioxide 19 L (22-30) mmol/L Anion Gap 15 mmol/L BUN 23 H (9-20) mg/dL Creatinine 1.01 (0.66-1.25) mg/dL Est GFR (CKD-EPI)AfAm 81 (>60 ml/min/1.73 sqM) Est GFR (CKD-EPI)NonAf 70 (>60 ml/min/1.73 sqM) Glucose 118 H (74-99) mg/dL Calcium 9.1 (8.4-10.2) mg/dL Phosphorus 2.0 L (2.5-4.5) mg/dL Magnesium 2.2 (1.6-2.3) mg/dL Total Bilirubin 0.4 (0.2-1.3) mg/dL AST 37 (17-59) U/L ALT 29 (21-72) U/L Alkaline Phosphatase 86 (38-126) U/L Total Creatine Kinase <20 L (55-170) U/L CK-MB (CK-2) <0.2 (0.0-2.4) ng/mL CK-MB (CK-2) Rel Index Troponin I <0.012 (0.000-0.034) ng/mL Total Protein 6.4 (6.3-8.2) g/dL Albumin 3.5 (3.5-5.0) g/dL 04/06/18 Range/Units 12:36 WBC (3.8-10.6) k/uL RBC (4.30-5.90) m/uL Hgb (13.0-17.5) gm/dL Hct (39.0-53.0) % MCV (80.0-100.0) fL MCH (25.0-35.0) pg MCHC (31.0-37.0) g/dL RDW (11.5-15.5) % Plt Count (150-450) k/uL Neutrophils % % Lymphocytes % % Monocytes % % Eosinophils % % Basophils % % Neutrophils # (1.3-7.7) k/uL Lymphocytes # (1.0-4.8) k/uL Monocytes # (0-1.0) k/uL Eosinophils # (0-0.7) k/uL Basophils # (0-0.2) k/uL Anisocytosis PT 10.4 (9.0-12.0) sec INR 1.1 (<1.2) APTT 25.1 (22.0-30.0) sec Sodium (137-145) mmol/L Potassium (3.5-5.1) mmol/L Chloride (98-107) mmol/L Carbon Dioxide (22-30) mmol/L Anion Gap mmol/L BUN (9-20) mg/dL Creatinine (0.66-1.25) mg/dL Est GFR (CKD-EPI)AfAm (>60 ml/min/1.73 sqM) Est GFR (CKD-EPI)NonAf (>60 ml/min/1.73 sqM) Glucose (74-99) mg/dL Calcium (8.4-10.2) mg/dL Phosphorus (2.5-4.5) mg/dL Magnesium (1.6-2.3) mg/dL Total Bilirubin (0.2-1.3) mg/dL AST (17-59) U/L ALT (21-72) U/L Alkaline Phosphatase (38-126) U/L Total Creatine Kinase (55-170) U/L CK-MB (CK-2) (0.0-2.4) ng/mL CK-MB (CK-2) Rel Index Troponin I (0.000-0.034) ng/mL Total Protein (6.3-8.2) g/dL Albumin (3.5-5.0) g/dL - Radiology Data Radiology results: report reviewed (X-ray right knee negative for acute disease) , image reviewed Disposition Clinical Impression: Dizziness, Nausea & vomiting, Anxiety, Right knee pain Disposition: HOME SELF-CARE Condition: Good Instructions: Dizziness (ED), Acute Nausea and Vomiting (ED) Is patient prescribed a controlled substance at d/c from ED?: No Referrals: Preston Velasquez MD [Primary Care Provider] - 1-2 days
[2018-04-06 12:58] LABS: INR 1.1 (<1.2); Partial Thromboplastin Time 25.1 sec (22.0-30.0); Prothrombin Time 10.4 sec (9.0-12.0)
[2018-04-06 13:04] LABS: Albumin 3.5 g/dL (3.5-5.0); Calcium 9.1 mg/dL (8.4-10.2); Magnesium 2.2 mg/dL (1.6-2.3); Potassium 4.4 mmol/L (3.5-5.1); Total Bilirubin 0.4 mg/dL (0.2-1.3); Total Protein 6.4 g/dL (6.3-8.2)
[2018-04-06 13:07] LABS: Anisocytosis Slight; Basophils # (A) 0.1 k/uL (0-0.2); Basophils % (A) 1 %; Eosinophils # (A) 0.9 k/uL (0-0.7); Eosinophils % (A) 8 %; HGB 12.7 gm/dL (13.0-17.5); Lymphocytes # (A) 1.4 k/uL (1.0-4.8); Lymphocytes % (A) 13 %; MCH 28.2 pg (25.0-35.0); MCHC 32.5 g/dL (31.0-37.0); MCV 86.7 fL (80.0-100.0); Mean Platelet Volume 6.6; Monocytes # (A) 0.6 k/uL (0-1.0); Monocytes % (A) 6 %; Neutrophils # (A) 7.9 k/uL (1.3-7.7); Neutrophils % (A) 71 %; Platelet Count 309 k/uL (150-450); WBC 11.1 k/uL (3.8-10.6)
[2018-04-06 13:09] LABS: Creatine Kinase <20 U/L (55-170)
[2018-04-06 13:23] LABS: Creatine Kinase MB <0.2 ng/mL (0.0-2.4); Troponin I <0.012 ng/mL (0.000-0.034)
--- NOTE | 2018-04-06 13:28 | XR ---
EXAMINATION TYPE: XR knee complete RT DATE OF EXAM: 04/06/2018 COMPARISON: NONE HISTORY: Pain TECHNIQUE: Three views are submitted. FINDINGS: There is narrowing of the knee joint and patellofemoral joint. There are large spurs extending off th e anterior margin the patella. Small amount of fluid in the suprapatellar bursa and vascular calcific ations noted. No erosive changes. Osseous structures are intact. No acute fracture seen. Small amou nt of fluid in the suprapatellar bursa suspected. IMPRESSION: 1. No acute fracture or dislocation. 2. Osteoarthritis.
--- NOTE | 2018-04-06 13:40 | ED ---
Medical Decision Making - Medical Decision Making 82 male the ER for evaluation, patient and family concerned of abdominal pain and vomiting as well as mental status changes. CT brain CT of the pelvis is negative, this patient time patient is awake and alert, patient will be discharged home - Lab Data Result diagrams: 04/06/18 12:36 04/06/18 12:36 Lab Results 04/06/18 04/06/18 04/06/18 Range/Units 12:36 12:36 12:36 WBC 11.1 H (3.8-10.6) k/uL RBC 4.50 (4.30-5.90) m/uL Hgb 12.7 L (13.0-17.5) gm/dL Hct 39.0 (39.0-53.0) % MCV 86.7 (80.0-100.0) fL MCH 28.2 (25.0-35.0) pg MCHC 32.5 (31.0-37.0) g/dL RDW 17.0 H (11.5-15.5) % Plt Count 309 (150-450) k/uL Neutrophils % 71 % Lymphocytes % 13 % Monocytes % 6 % Eosinophils % 8 % Basophils % 1 % Neutrophils # 7.9 H (1.3-7.7) k/uL Lymphocytes # 1.4 (1.0-4.8) k/uL Monocytes # 0.6 (0-1.0) k/uL Eosinophils # 0.9 H (0-0.7) k/uL Basophils # 0.1 (0-0.2) k/uL Anisocytosis Slight PT (9.0-12.0) sec INR (<1.2) APTT (22.0-30.0) sec Sodium 138 (137-145) mmol/L Potassium 4.4 (3.5-5.1) mmol/L Chloride 104 (98-107) mmol/L Carbon Dioxide 19 L (22-30) mmol/L Anion Gap 15 mmol/L BUN 23 H (9-20) mg/dL Creatinine 1.01 (0.66-1.25) mg/dL Est GFR (CKD-EPI)AfAm 81 (>60 ml/min/1.73 sqM) Est GFR (CKD-EPI)NonAf 70 (>60 ml/min/1.73 sqM) Glucose 118 H (74-99) mg/dL Calcium 9.1 (8.4-10.2) mg/dL Phosphorus 2.0 L (2.5-4.5) mg/dL Magnesium 2.2 (1.6-2.3) mg/dL Total Bilirubin 0.4 (0.2-1.3) mg/dL AST 37 (17-59) U/L ALT 29 (21-72) U/L Alkaline Phosphatase 86 (38-126) U/L Total Creatine Kinase <20 L (55-170) U/L CK-MB (CK-2) <0.2 (0.0-2.4) ng/mL CK-MB (CK-2) Rel Index Troponin I <0.012 (0.000-0.034) ng/mL Total Protein 6.4 (6.3-8.2) g/dL Albumin 3.5 (3.5-5.0) g/dL 04/06/18 Range/Units 12:36 WBC (3.8-10.6) k/uL RBC (4.30-5.90) m/uL Hgb (13.0-17.5) gm/dL Hct (39.0-53.0) % MCV (80.0-100.0) fL MCH (25.0-35.0) pg MCHC (31.0-37.0) g/dL RDW (11.5-15.5) % Plt Count (150-450) k/uL Neutrophils % % Lymphocytes % % Monocytes % % Eosinophils % % Basophils % % Neutrophils # (1.3-7.7) k/uL Lymphocytes # (1.0-4.8) k/uL Monocytes # (0-1.0) k/uL Eosinophils # (0-0.7) k/uL Basophils # (0-0.2) k/uL Anisocytosis PT 10.4 (9.0-12.0) sec INR 1.1 (<1.2) APTT 25.1 (22.0-30.0) sec Sodium (137-145) mmol/L Potassium (3.5-5.1) mmol/L Chloride (98-107) mmol/L Carbon Dioxide (22-30) mmol/L Anion Gap mmol/L BUN (9-20) mg/dL Creatinine (0.66-1.25) mg/dL Est GFR (CKD-EPI)AfAm (>60 ml/min/1.73 sqM) Est GFR (CKD-EPI)NonAf (>60 ml/min/1.73 sqM) Glucose (74-99) mg/dL Calcium (8.4-10.2) mg/dL Phosphorus (2.5-4.5) mg/dL Magnesium (1.6-2.3) mg/dL Total Bilirubin (0.2-1.3) mg/dL AST (17-59) U/L ALT (21-72) U/L Alkaline Phosphatase (38-126) U/L Total Creatine Kinase (55-170) U/L CK-MB (CK-2) (0.0-2.4) ng/mL CK-MB (CK-2) Rel Index Troponin I (0.000-0.034) ng/mL Total Protein (6.3-8.2) g/dL Albumin (3.5-5.0) g/dL - Radiology Data Radiology results: report reviewed (CT brain, CT abdomen and pelvis negative for acute disease), image reviewed Disposition Clinical Impression: Dizziness, Nausea & vomiting, Anxiety, Right knee pain Disposition: HOME SELF-CARE Condition: Good Instructions: Acute Nausea and Vomiting (ED), Dizziness (ED) Is patient prescribed a controlled substance at d/c from ED?: No Referrals: Preston Velasquez MD [Primary Care Provider] - 1-2 days
--- NOTE | 2018-04-06 15:09 | CT ---
EXAMINATION TYPE: CT abdomen pelvis w con DATE OF EXAM: 04/06/2018 COMPARISON: NONE HISTORY: Nausea and vomiting CT DLP: 2127 mGycm Automated exposure control for dose reduction was used. TECHNIQUE: Helical acquisition of images was performed from the lung bases through the pelvis. CONTRAST: Performed without Oral Contrast and with IV Contrast, patient injected with 100 mL of Isovue 300. FINDINGS: Patient motion artifact slightly limits the exam. LUNG BASES: Bibasilar subsegmental dependent atelectasis is seen in addition to subpleural reticulati on suggesting early fibrotic change. Extent of coronary artery calcifications are present. LIVER/GB: No significant abnormality is appreciated. Small calculus is seen at the gallbladder neck. No ductal dilatation of the common bile duct. PANCREAS: Mild pancreatic probable atrophy is seen without ductal dilatation. SPLEEN: No splenomegaly. ADRENALS: No significant abnormality is seen. KIDNEYS: Left-sided mild pelvocaliectasis is noted although no obstructing calculus is seen in the ur eters within normal limits of size. No urinary bladder calculus is identified. Nonobstructing left-si ded renal calculus measures 6 mm within the lower pole. Emanating from the right upper pole there is a 2.2 cm renal cyst.. FREE AIR: No free air is visualized. ADENOPATHY: No greater than 1 cm short axis. Within the abdomen or pelvis. REPRODUCTIVE ORGANS: No significant abnormality is seen URINARY BLADDER: No significant abnormality is seen. OSSEOUS STRUCTURES: Moderate multilevel degenerative changes of the thoracolumbar spine and more sev ere of the lumbosacral spine are seen. Bridging anterior osteophytes throughout suggests underlying d iffuse radiographic skeletal hyperostosis. BOWEL: There is a small hiatal hernia present. Gastric rugal fold thickening is likely related to pe ristalsis and nondistention although can be seen in gastritis. OTHER: Mild calcific and noncalcific atheromatous changes are seen of the abdominal aorta and its bra nches. IMPRESSION: No acute intra-abdominal process. No evidence of bowel obstruction or focal colitis. Inci dentally noted cholelithiasis and nonobstructing left renal calculus. Gastric rugal fold thickening i s likely related to peristalsis and nondistention although can be seen in gastritis. Small hiatal her jes.
--- NOTE | 2018-04-06 15:10 | CT ---
EXAMINATION TYPE: CT brain wo con DATE OF EXAM: 04/06/2018 COMPARISON: Prior CT brain 07/02/2015 HISTORY: Confusion CT DLP: 1219 mGycm Automated exposure control for dose reduction was used. Helical acquisition through the brain. FINDINGS: There is no hemorrhage or hydrocephalus. White matter demyelination changes, cortical atrophy again n oted and are likely age-related. Cerebral vascular calcifications are present. The calvarium is intac t. Paranasal sinuses and mastoid air cells as visualized are normal. IMPRESSION: STABLE EXAM, NO ACUTE ABNORMALITY. AGE-RELATED CHANGES OF ATROPHY AND PROBABLE CHRONIC SMALL VESSEL I SCHEMIA.
[2018-04-06 18:26] VITALS: BP 145/81; PULSE 77; RESP 16; TEMP 98.3
== END 2018-04-06 17:00 | disposition home or self-care (01) ==
LOC: EC 12:10
DX: F41.9 Anxiety disorder, unspecified (principal); M25.561 Pain in right knee; R11.2 Nausea with vomiting, unspecified; R42 Dizziness and giddiness; R53.1 Weakness; E78.5 Hyperlipidemia, unspecified; I11.0 Hypertensive heart disease with heart failure; I50.9 Heart failure, unspecified; I48.91 Unspecified atrial fibrillation; K21.9 Gastro-esophageal reflux disease without esophagitis; M19.90 Unspecified osteoarthritis, unspecified site; Z79.01 Long term (current) use of anticoagulants; Z79.82 Long term (current) use of aspirin; Z79.899 Other long term (current) drug therapy
CPT/HCPCS: 36415; 93005; 80053; 82550; 82553; 83735; 84100; 84484; 85025; 85610; 85730; 73562; 70450; 74177; 99285; 96374; 96375; 96361 ×2; J2060; J2405; Q9967

== ENCOUNTER 2018-11-29 11:13 | Inpatient (IN) | payer MEDICARE ==
[2018-11-29] MEDS ORDERED: SODIUM CHLORIDE 0.9% 1,000 ML IV STA (11:52)
[2018-11-29] MEDS ORDERED: PANTOPRAZOLE 40 MG/10 ML VIAL IVP STA (11:52)
--- NOTE | 2018-11-29 11:55 | ED ---
General Adult HPI - General Chief complaint: GI Bleed Stated complaint: GI bleed Time Seen by Provider: 11/29/18 11:35 Source: patient, family, RN notes reviewed Mode of arrival: wheelchair Limitations: no limitations - History of Present Illness Initial comments: Patient is a pleasant 83-year-old male presenting to the emergency department with family with complaints of rectal bleeding. Symptoms have been present between 3 and 7 days. Patient did have some lightheadedness today and maybe some yesterday. No abdominal pain. Patient does have history of colitis in the past. No nausea vomiting. Patient is tolerating oral intake. No generalized weakness. No dyspnea. - Related Data Home Medications Medication Instructions Recorded Confirmed Aspirin 81 mg PO DAILY@0800 04/29/15 11/29/18 Isosorbide Mononitrate ER [Imdur] 30 mg PO HS@199904/29/15 11/29/18 Nitroglycerin Sl Tabs [Nitrostat] 0.4 mg SUBLINGUAL Q5M PRN 04/29/15 11/29/18 Multivitamin [Men's Multi-Vitamin] 2 tab PO DAILY@0800 07/28/15 11/29/18 Simvastatin [Zocor] 20 mg PO HS@199907/28/15 11/29/18 ALPRAZolam [Xanax] 0.25 mg PO HS PRN 03/14/18 11/29/18 Apixaban [Eliquis] 5 mg PO BID@0800,199903/14/18 11/29/18 Ranitidine HCl [Zantac] 150 mg PO BID@0800,199903/14/18 11/29/18 Fexofenadine HCl [Lisa Allergy] 180 mg PO DAILY PRN 04/06/18 11/29/18 Potassium Chloride [K-Tab ER] 20 meq PO DAILY@1700 04/06/18 11/29/18 Acetaminophen [Tylenol] 1,000 mg PO DAILY PRN 11/29/18 11/29/18 Fluticasone Nasal [place] [Flonase 1 spray EA NOSTRIL DAILY PRN 11/29/18 11/29/18 Nasal [place]] Furosemide [Lasix] 40 mg PO DAILY@0800 11/29/18 11/29/18 Methocarbamol [Robaxin] 500 mg PO BID PRN 11/29/18 11/29/18 Sertraline HCl [Zoloft] 100 mg PO HS@199911/29/18 11/29/18 hydrOXYzine HCL [Atarax] 50 mg PO HS@1999 PRN 11/29/18 11/29/18 Allergies Allergy/AdvReac Type Severity Reaction Status Date / Time No Known Allergies Allergy Verified 11/29/18 12:26 Review of Systems ROS Statement: Those systems with pertinent positive or pertinent negative responses have been documented in the HPI. ROS Other: All systems not noted in ROS Statement are negative. Constitutional: Denies: fever Eyes: Denies: eye pain ENT: Denies: ear pain Respiratory: Denies: cough Cardiovascular: Denies: chest pain Endocrine: Denies: fatigue Gastrointestinal: Reports: hematochezia. Denies: abdominal pain, vomiting Genitourinary: Denies: dysuria Musculoskeletal: Denies: back pain Skin: Denies: rash Neurological: Denies: headache, weakness Past Medical History Past Medical History: Atrial Fibrillation, Heart Failure, GERD/Reflux, Hyperlipidemia, Hypertension, Osteoarthritis (OA), Skin Disorder Additional Past Medical History / Comment(s): Crohn's, vertigo History of Any Multi-Drug Resistant Organisms: C-DIFF Date of last positivie culture/infection: 03/14/18 MDRO Source:: Stool Past Surgical History: Heart Catheterization, Heart Catheterization With Stent, Joint Replacement Additional Past Surgical History / Comment(s): left knee 11/2014. heart cath about [address] Eduardo, lithotripsy Past Anesthesia/Blood Transfusion Reactions: No Reported Reaction Date of Last Stent Placement:: 2006 Past Psychological History: Anxiety Smoking Status: Never smoker Past Alcohol Use History: None Reported Past Drug Use History: None Reported - Past Family History Mother History Unknown: Yes Family Medical History: No Reported History Additional Family Medical History / Comment(s): never went to doctors Father History Unknown: Yes Family Medical History: No Reported History Additional Family Medical History / Comment(s): ETOH use, unknown hx General Exam Limitations: no limitations General appearance: alert, in no apparent distress Head exam: Present: atraumatic Eye exam: Present: normal appearance, PERRL ENT exam: Present: normal oropharynx Neck exam: Present: normal inspection Respiratory exam: Present: normal lung sounds bilaterally Cardiovascular Exam: Present: regular rate, normal rhythm GI/Abdominal exam: Present: soft. Absent: tenderness Rectal exam: Present: normal inspection, other (Limited stool, there is a red tinge). Absent: mass, tenderness Extremities exam: Present: normal inspection Neurological exam: Present: alert Psychiatric exam: Present: normal affect, normal mood Skin exam: Present: normal color Course Vital Signs 11/29/18 11/29/18 11/29/18 11:17 11:30 12:00 Temperature 97.9 F Pulse Rate 85 Respiratory 18 Rate Blood Pressure 132/74 142/69 142/69 O2 Sat by Pulse 99 100 Oximetry 11/29/18 11/29/18 11/29/18 12:30 13:00 13:30 Temperature Pulse Rate 61 Respiratory 18 Rate Blood Pressure 142/69 142/69 142/69 O2 Sat by Pulse Oximetry 11/29/18 11/29/18 11/29/18 14:00 14:30 15:00 Temperature Pulse Rate 58 L 57 L Respiratory 22 20 21 Rate Blood Pressure 131/81 138/68 137/68 O2 Sat by Pulse Oximetry 11/29/18 11/29/18 15:30 16:00 Temperature Pulse Rate 60 Respiratory 20 20 Rate Blood Pressure 133/64 137/66 O2 Sat by Pulse Oximetry EKG Findings - EKG Comments: EKG Findings:: Sinus bradycardia 59. For screening AV block AL of 2:30. QRS 82. QT 406. QTc 41. Left axis. Normal QRS. No acute ST change. Medical Decision Making - Medical Decision Making Patient reevaluated. Patient and family updated on results and plan. Case was discussed in detail with Dr. Breen, covering for Dr. Velasquez, who will admit. - Lab Data Result diagrams: 11/29/18 13:05 11/29/18 13:05 Lab Results 11/29/18 11/29/18 11/29/18 Range/Units 13:05 13:05 13:05 WBC 10.6 (3.8-10.6) k/uL RBC 4.34 (4.30-5.90) m/uL Hgb 10.0 L (13.0-17.5) gm/dL Hct 33.0 L (39.0-53.0) % MCV 76.1 L (80.0-100.0) fL MCH 23.1 L (25.0-35.0) pg MCHC 30.3 L (31.0-37.0) g/dL RDW 17.3 H (11.5-15.5) % Plt Count 444 (150-450) k/uL Neutrophils % 71 % Lymphocytes % 18 % Monocytes % 6 % Eosinophils % 4 % Basophils % 0 % Neutrophils # 7.5 (1.3-7.7) k/uL Lymphocytes # 1.9 (1.0-4.8) k/uL Monocytes # 0.6 (0-1.0) k/uL Eosinophils # 0.4 (0-0.7) k/uL Basophils # 0.0 (0-0.2) k/uL Hypochromasia Moderate Anisocytosis Slight Microcytosis Slight PT (9.0-12.0) sec INR (<1.2) APTT (22.0-30.0) sec Sodium 140 (137-145) mmol/L Potassium 4.2 (3.5-5.1) mmol/L Chloride 107 (98-107) mmol/L Carbon Dioxide 23 (22-30) mmol/L Anion Gap 10 mmol/L BUN 21 H (9-20) mg/dL Creatinine 1.40 H (0.66-1.25) mg/dL Est GFR (CKD-EPI)AfAm 54 (>60 ml/min/1.73 sqM) Est GFR (CKD-EPI)NonAf 47 (>60 ml/min/1.73 sqM) Glucose 89 (74-99) mg/dL Calcium 8.8 (8.4-10.2) mg/dL Total Bilirubin 0.3 (0.2-1.3) mg/dL AST 18 (17-59) U/L ALT 13 L (21-72) U/L Alkaline Phosphatase 73 (38-126) U/L Total Protein 5.9 L (6.3-8.2) g/dL Albumin 3.1 L (3.5-5.0) g/dL Stool Occult Blood Positive (Negative) 11/29/18 Range/Units 13:05 WBC (3.8-10.6) k/uL RBC (4.30-5.90) m/uL Hgb (13.0-17.5) gm/dL Hct (39.0-53.0) % MCV (80.0-100.0) fL MCH (25.0-35.0) pg MCHC (31.0-37.0) g/dL RDW (11.5-15.5) % Plt Count (150-450) k/uL Neutrophils % % Lymphocytes % % Monocytes % % Eosinophils % % Basophils % % Neutrophils # (1.3-7.7) k/uL Lymphocytes # (1.0-4.8) k/uL Monocytes # (0-1.0) k/uL Eosinophils # (0-0.7) k/uL Basophils # (0-0.2) k/uL Hypochromasia Anisocytosis Microcytosis PT 10.6 (9.0-12.0) sec INR 1.0 (<1.2) APTT 30.9 H (22.0-30.0) sec Sodium (137-145) mmol/L Potassium (3.5-5.1) mmol/L Chloride (98-107) mmol/L Carbon Dioxide (22-30) mmol/L Anion Gap mmol/L BUN (9-20) mg/dL Creatinine (0.66-1.25) mg/dL Est GFR (CKD-EPI)AfAm (>60 ml/min/1.73 sqM) Est GFR (CKD-EPI)NonAf (>60 ml/min/1.73 sqM) Glucose (74-99) mg/dL Calcium (8.4-10.2) mg/dL Total Bilirubin (0.2-1.3) mg/dL AST (17-59) U/L ALT (21-72) U/L Alkaline Phosphatase (38-126) U/L Total Protein (6.3-8.2) g/dL Albumin (3.5-5.0) g/dL Stool Occult Blood (Negative) Disposition Clinical Impression: Lower gastrointestinal hemorrhage Disposition: ADMITTED IP TO THIS HOSP Is patient prescribed a controlled substance at d/c from ED?: No Referrals: Preston Velasquez MD [Primary Care Provider] - 1-2 days Decision Time: 16:52
[2018-11-29 14:16] LABS: Albumin 3.1 g/dL (3.5-5.0); Calcium 8.8 mg/dL (8.4-10.2); Potassium 4.2 mmol/L (3.5-5.1); Total Bilirubin 0.3 mg/dL (0.2-1.3); Total Protein 5.9 g/dL (6.3-8.2)
[2018-11-29 14:17] LABS: Anisocytosis Slight; Basophils % (A) 0 %; Eosinophils # (A) 0.4 k/uL (0-0.7); Eosinophils % (A) 4 %; Hypochromasia Moderate; Lymphocytes # (A) 1.9 k/uL (1.0-4.8); Lymphocytes % (A) 18 %; MCH 23.1 pg (25.0-35.0); MCHC 30.3 g/dL (31.0-37.0); MCV 76.1 fL (80.0-100.0); Mean Platelet Volume 6.3; Microcytosis Slight; Monocytes # (A) 0.6 k/uL (0-1.0); Monocytes % (A) 6 %; Neutrophils # (A) 7.5 k/uL (1.3-7.7); Neutrophils % (A) 71 %; Platelet Count 444 k/uL (150-450); RBC 4.34 m/uL (4.30-5.90); RDW 17.3 % (11.5-15.5); WBC 10.6 k/uL (3.8-10.6)
[2018-11-29 14:25] LABS: Partial Thromboplastin Time 30.9 sec (22.0-30.0); Prothrombin Time 10.6 sec (9.0-12.0)
[2018-11-29] MEDS ORDERED: ALPRAZolam 0.25 MG TAB PO STA (16:09)
[2018-11-29] MEDS ORDERED: NALOXONE 0.4 MG/ML 1 ML VIAL IV PRN (16:52)
[2018-11-29] MEDS ORDERED: METHOCARBAMOL 500 MG TAB PO PRN (17:26)
[2018-11-29] MEDS ORDERED: NITROGLYCERIN SL TABS 0.4 MG TAB SUBLINGUAL PRN (17:26)
[2018-11-29] MEDS ORDERED: ACETAMINOPHEN TAB 500 MG TAB PO PRN (17:26)
[2018-11-29] MEDS ORDERED: ALPRAZolam 0.25 MG TAB PO PRN (18:26)
[2018-11-29] MEDS: SODIUM CHLORIDE 0.9% 1,000 ML IV SCH (22:38)
[2018-11-29] MEDS: SERTRALINE 100 MG TAB PO SCH (22:43)
[2018-11-29] MEDS: ISOSORBIDE MONONITRATE ER 30 MG TAB.ER.24H PO SCH (22:43)
[2018-11-29] MEDS: ATORVASTATIN 10 MG TAB PO SCH (22:43)
--- NOTE | 2018-11-29 22:54 | HP ---
HISTORY AND PHYSICAL DATE OF ADMISSION: 11/29/2018 DATE OF SERVICE: 11/29/2018 PRESENTING COMPLAINT: Bleeding per rectum. HISTORY OF PRESENTING COMPLAINT: A very pleasant 83-year-old gentleman who follows with Dr. Velasquez. The patient is a resident of [facility]. Chronic stable medical conditions include paroxysmal atrial fibrillation, congestive heart failure from diastolic dysfunction, GERD, hypertension, hyperlipidemia, osteoarthritis, coronary artery disease with stent. Patient at baseline uses a walker. The patient was noted for at least 4-7 days having bleeding per rectum. It appeared to be from fresh blood. Denies any lower abdominal pain. No nausea, vomiting. No fever. No chills. The patient hence was brought to the ER. Initial hemoglobin was 10. Patient does feel a bit weak and tired. No change in appetite. No weight loss. Admitted from the ER with a Gastroenterology consultation. REVIEW OF SYSTEMS: CONSTITUTIONAL: Tired. HEENT decreased hearing. RESPIRATORY: None. CARDIOVASCULAR none. GASTROINTESTINAL: As above, heartburn. GENITOURINARY none. MUSCULOSKELETAL: Some pain in the joints. DERMATOLOGICAL, HEMATOLOGIC, LYMPHATICS: none. PSYCHIATRY none. NEUROLOGICAL none. PAST MEDICAL HISTORY: Paroxysmal atrial fibrillation, congestive heart failure from diastolic dysfunction. Ejection fraction 50-55 percent; gastroesophageal reflux disease. Hypertension. Hyperlipidemia. Osteoarthritis. Coronary artery disease with stent. Crohn's. Primary osteoarthritis. PAST SURGICAL HISTORY: Cardiac catheterization with stent, left knee replacement, cardiac catheterization 10 years ago, lithotripsy. SOCIAL HISTORY: Does not smoke. Alcohol rarely. Lives at [facility]. Uses a walker. FAMILY HISTORY: Reviewed, noncontributory to presentation. HOME MEDICATIONS: 1. Zocor 20 mg q.h.s. 2. Zoloft 100 mg q.h.s. 3. Zantac 150 mg p.o. b.i.d. 4. Potassium 20 mEq a day. 5. Men's multivitamin 2 tablets p.o. daily. 6. Imdur ER 30 mg at bedtime. 7. Lasix 40 mg p.o. daily. 8. Aspirin 81 mg daily. 9. Eliquis 5 mg p.o. b.i.d. 10.Atarax 50 mg q.h.s. 11.Nitrostat 0.4 sublingual q.5 p.r.n. 12.Robaxin 500 mg p.o. b.i.d. p.r.n. 13.Tylenol 1000 mg p.o. daily p.r.n. 14.Xanax 0.25 p.o. q.h.s. p.r.n. 15.Flonase 1 spray each nostril daily p.r.n. 16.Lisa 180 mg p.o. daily p.r.n. ALLERGIES: None. PHYSICAL EXAMINATION: VITAL SIGNS ON PRESENTATION: Temperature 97.9, pulse 85, respiratory 18, blood pressure 132/74, pulse ox 99% on room air. GENERAL APPEARANCE: Well built, BMI 30.4. Sitting up comfortable. EYES: Pupils equal. Conjunctivae normal. HEENT: External appearance of nose and ears normal. Oral cavity normal. Decreased hearing. NECK: JVD not raised. Mass not palpable. RESPIRATORY: Effort normal. LUNGS: Fair entry. CARDIOVASCULAR: 1st and 2nd sounds normal. No edema. ABDOMEN: Soft, nontender. Liver and spleen not palpable. LYMPHATICS: No lymph nodes palpable in the neck or axilla. PSYCHIATRY: Alert and oriented x3. Mood and affect normal. NEUROLOGICAL: Pupils equal. Cranial nerves grossly intact. Power and sensation grossly intact. MUSCULOSKELETAL: Evidence of osteoarthritis especially in the hands. INVESTIGATIONS: White count 10.6. Hemoglobin 10, it was 12.4 back in February of this year. BUN and creatinine is 21/1.40. It was 19 and 0.95 back in February of this year. EKG tracing personally reviewed by me shows sinus rhythm. ASSESSMENT: 1. Acute lower gastrointestinal bleed without any abdominal pain. This well could be diverticular bleed in the patient who is actually also taking Eliquis. 2. Paroxysmal atrial fibrillation, chronically on Eliquis, currently in sinus rhythm. 3. Chronic congestive heart failure from diastolic dysfunction. EF 55%. 4. Gastroesophageal reflux disease. 5. Essential hypertension. 6. Hyperlipidemia. 7. Primary osteoarthritis. 8. Coronary artery disease with history of stent. 9. Chronic gait dysfunction uses a walker. 10.Renal failure, acute versus chronic. PLAN: The patient's Eliquis has been held. Other medications will be resumed. Will hold off patient's Lasix for right now. The patient will be hydrated. Gastroenterology is consulted with a possible view to EGD and colonoscopy. Care was discussed the patient. He was put on a clear liquid diet. Copy to Dr. Velasquez. DEBBY / GUDELIA: [id number] /
[2018-11-30] MEDS: ALPRAZolam 0.25 MG TAB PO PRN ×3 (01:54→20:13)
[2018-11-30 03:11] LABS: Anisocytosis Slight; Basophils % (A) 0 %; Eosinophils # (A) 0.4 k/uL (0-0.7); Eosinophils % (A) 4 %; HCT 32.8 % (39.0-53.0); Hypochromasia Marked; Lymphocytes # (A) 1.6 k/uL (1.0-4.8); Lymphocytes % (A) 14 %; MCH 23.1 pg (25.0-35.0); MCHC 30.4 g/dL (31.0-37.0); Mean Platelet Volume 5.8; Microcytosis Slight; Monocytes # (A) 0.7 k/uL (0-1.0); Monocytes % (A) 6 %; Neutrophils # (A) 8.5 k/uL (1.3-7.7); Neutrophils % (A) 74 %; Platelet Count 426 k/uL (150-450); RBC 4.31 m/uL (4.30-5.90); WBC 11.6 k/uL (3.8-10.6)
[2018-11-30] MEDS: MULTIVITAMINS, THERA 1 EACH TAB PO SCH (08:04)
[2018-11-30] MEDS: PANTOPRAZOLE 40 MG/10 ML VIAL IV SCH (09:57)
--- NOTE | 2018-11-30 13:39 | P.CONS ---
History of Present Illness - Reason for Consult Consult date: 11/30/18 GI bleed Requesting physician: Lio Breen - Chief Complaint Rectal bleeding - History of Present Illness 83-year-old gentleman known to Dr. Eduardo service with a past medical history of ulcerative colitis previously maintained on balsalazide discontinued 2-3 months ago secondary to "side effects". Patient presents with painless rectal bleeding 2 days passing blood clots with lightheadedness. Denies hematemesis or melena. Last colonoscopy a proximally 3 years ago. No recent EGD. Additional past medical history paroxysmal atrial fibrillation maintained on aspirin and Eliquis; last dose yesterday. Admission hemoglobin 10 unchanged today still at 10. MCV 76. Platelet 426. BUN 21. Creatinine 1.4. INR 1.0. Review of Systems Constitutional: Denies fever, chills, sweats, weight gain, or loss. HEENT: Negative for migraines, blurred vision or loss, earaches, drainage, tinnitus, oral mucosal lesions, dysphagia, or odynophagia. Cardiac: Negative for chest pain, arrhythmias, or palpitation. Respiratory: Negative for shortness of breath, hemoptysis, cough, or sputum production. Gastrointestinal: See HPI for pertinent findings. Genitourinary: Negative for hematuria, urgency, frequency, polyuria, dysuria, or penile discharge. Musculoskeletal: Negative for muscle aches, swelling, arthritis, and arthralgias. Neurologic: Negative for stroke or TIA. Endocrine: Negative for thyroid problems. Skin: Negative for rash or itching. Psychiatric: Negative history for depression and anxiety Past Medical History Past Medical History: Atrial Fibrillation, Heart Failure, GERD/Reflux, Hyperlipidemia, Hypertension, Osteoarthritis (OA), Skin Disorder Additional Past Medical History / Comment(s): Crohn's, vertigo History of Any Multi-Drug Resistant Organisms: C-DIFF Year Discovered:: 03/14/18 MDRO Source:: Stool Past Surgical History: Heart Catheterization, Heart Catheterization With Stent, Joint Replacement Additional Past Surgical History / Comment(s): left knee 11/2014. heart cath about [address] Eduardo, lithotripsy Past Anesthesia/Blood Transfusion Reactions: No Reported Reaction Date of Last Stent Placement:: 2006 Past Psychological History: Anxiety Smoking Status: Never smoker Past Alcohol Use History: None Reported Past Drug Use History: None Reported - Past Family History Mother History Unknown: Yes Family Medical History: No Reported History Additional Family Medical History / Comment(s): never went to doctors Father History Unknown: Yes Family Medical History: No Reported History Additional Family Medical History / Comment(s): ETOH use, unknown hx Medications and Allergies Home Medications Medication Instructions Recorded Confirmed Type Aspirin 81 mg PO DAILY@0800 04/29/15 11/29/18 History Isosorbide Mononitrate ER [Imdur] 30 mg PO HS@199904/29/15 11/29/18 History Nitroglycerin Sl Tabs [Nitrostat] 0.4 mg SUBLINGUAL Q5M PRN 04/29/15 11/29/18 History Multivitamin [Men's Multi-Vitamin] 2 tab PO DAILY@0800 07/28/15 11/29/18 History Simvastatin [Zocor] 20 mg PO HS@199907/28/15 11/29/18 History ALPRAZolam [Xanax] 0.25 mg PO HS PRN 03/14/18 11/29/18 History Apixaban [Eliquis] 5 mg PO BID@0800,199903/14/18 11/29/18 History Ranitidine HCl [Zantac] 150 mg PO BID@0800,199903/14/18 11/29/18 History Fexofenadine HCl [Lisa Allergy] 180 mg PO DAILY PRN 04/06/18 11/29/18 History Potassium Chloride [K-Tab ER] 20 meq PO DAILY@1700 04/06/18 11/29/18 History Acetaminophen [Tylenol] 1,000 mg PO DAILY PRN 11/29/18 11/29/18 History Fluticasone Nasal [place] [Flonase 1 spray EA NOSTRIL DAILY PRN 11/29/18 11/29/18 History Nasal [place]] Furosemide [Lasix] 40 mg PO DAILY@0800 11/29/18 11/29/18 History Methocarbamol [Robaxin] 500 mg PO BID PRN 11/29/18 11/29/18 History Sertraline HCl [Zoloft] 100 mg PO HS@199911/29/18 11/29/18 History hydrOXYzine HCL [Atarax] 50 mg PO HS@1999 PRN 11/29/18 11/29/18 History Allergies Allergy/AdvReac Type Severity Reaction Status Date / Time No Known Allergies Allergy Verified 11/29/18 12:26 Physical Exam Vitals: Vital Signs Temp Pulse Pulse Pulse Resp BP BP 11/30/18 08:04 97.4 F L 71 18 134/66 11/30/18 01:55 127/80 11/30/18 01:43 97.6 F 67 24 111/70 11/30/18 00:15 98.4 F 61 19 109/61 11/29/18 21:24 97.5 F L 59 L 16 164/84 11/29/18 20:38 98.7 F 65 17 115/75 11/29/18 19:30 98.5 F 71 18 124/66 11/29/18 19:00 62 20 139/70 11/29/18 18:30 59 L 18 118/66 11/29/18 18:00 60 22 114/78 11/29/18 17:30 59 L 18 126/64 11/29/18 17:00 57 L 22 151/84 11/29/18 16:30 71 16 137/66 11/29/18 16:00 20 137/66 11/29/18 15:30 60 20 133/64 11/29/18 15:00 57 L 21 137/68 11/29/18 14:30 58 L 20 138/68 11/29/18 14:00 22 131/81 Pulse Ox 11/30/18 08:04 100 11/30/18 01:55 11/30/18 01:43 100 11/30/18 00:15 99 11/29/18 21:24 100 11/29/18 20:38 96 11/29/18 19:30 97 11/29/18 19:00 11/29/18 18:30 11/29/18 18:00 11/29/18 17:30 11/29/18 17:00 11/29/18 16:30 11/29/18 16:00 11/29/18 15:30 11/29/18 15:00 11/29/18 14:30 11/29/18 14:00 Intake and Output 11/29/18 11/30/18 11/30/18 22:59 06:59 14:59 Intake Total 800 Balance 800 Intake: Intake, IV Titration 800 Amount Sodium Chloride 0.9% 1, 800 000 ml @ 100 mls/hr IV . Q10H STA Rx#:[id number] Other: Voiding Method Incontinent Toilet # Voids 3 # Bowel Movements 3 3 General appearance: The patient is alert, oriented, in no acute distress. HET: Head is normocephalic and atraumatic. Pupils are equal and reactive. Oropharynx is clear without lesions. Neck: Supple without lymphadenopathy. Trachea midline. Heart: S1 S2. Lungs: No crackles or wheezes are heard. Abdomen: Soft, nontender, nondistended with bowel sounds. No peritoneal signs. No palpable organomegaly or masses. Extremities: Normal skin color and turgor. No cyanosis, rash, ulceration, clubbing, or edema. Radial and pedal pulses are 2/4 bilaterally. Neurological: No focal deficits. Strength and sensation are grossly intact. Results CBC & Chem 7: 11/30/18 02:53 11/29/18 13:05 Labs: Abnormal Lab Results - Last 24 Hours (Table) 11/29/18 11/29/18 11/29/18 Range/Units 13:05 13:05 13:05 WBC (3.8-10.6) k/uL Hgb 10.0 L (13.0-17.5) gm/dL Hct 33.0 L (39.0-53.0) % MCV 76.1 L (80.0-100.0) fL MCH 23.1 L (25.0-35.0) pg MCHC 30.3 L (31.0-37.0) g/dL RDW 17.3 H (11.5-15.5) % Neutrophils # (1.3-7.7) k/uL APTT 30.9 H (22.0-30.0) sec BUN 21 H (9-20) mg/dL Creatinine 1.40 H (0.66-1.25) mg/dL ALT 13 L (21-72) U/L Total Protein 5.9 L (6.3-8.2) g/dL Albumin 3.1 L (3.5-5.0) g/dL 11/30/18 Range/Units 02:53 WBC 11.6 H (3.8-10.6) k/uL Hgb 10.0 L (13.0-17.5) gm/dL Hct 32.8 L (39.0-53.0) % MCV 76.0 L (80.0-100.0) fL MCH 23.1 L (25.0-35.0) pg MCHC 30.4 L (31.0-37.0) g/dL RDW 17.0 H (11.5-15.5) % Neutrophils # 8.5 H (1.3-7.7) k/uL APTT (22.0-30.0) sec BUN (9-20) mg/dL Creatinine (0.66-1.25) mg/dL ALT (21-72) U/L Total Protein (6.3-8.2) g/dL Albumin (3.5-5.0) g/dL Assessment and Plan (1) Acute GI bleeding Narrative/Plan: 83-year-old gentleman with a history of ulcerative colitis previously maintained on balsalazide discontinued 2-3 months ago secondary to side effects admitted with painless rectal bleeding passing red clots without hematemesis or melena. Possible exacerbation of inflammatory bowel disease possible acute colonic diverticular bleed possible combination of both. Current Visit: Yes Status: Acute Code(s): K92.2 - GASTROINTESTINAL HEMORRHAGE, UNSPECIFIED SNOMED Code(s): 19634519 (2) History of ulcerative colitis Current Visit: Yes Status: Acute Code(s): Z87.19 - PERSONAL HISTORY OF OTHER DISEASES OF THE DIGESTIVE SYSTEM SNOMED Code(s): 933807087 (3) Paroxysmal atrial fibrillation Current Visit: Yes Status: Acute Code(s): I48.0 - PAROXYSMAL ATRIAL FIBRILLATION SNOMED Code(s): 138344631 (4) Acute blood loss anemia Current Visit: Yes Status: Acute Code(s): D62 - ACUTE POSTHEMORRHAGIC ANEMIA SNOMED Code(s): 250418092 Plan: 1. Clear liquid diet. EGD colonoscopy tentatively scheduled for , 04/2019. CBC monitoring. Will obtain sed rate CRP. Continue to hold anticoagulation. The music director has discussed the risks, benefits and alternative therapies for the above-mentioned procedure and for both sedation/analgesia as well as necessary blood product administration, if indicated, as they pertain to this patient. The patient has indicated understanding and acceptance of the risks and procedures discussed. Thank you for this kind referral and the opportunity to participate in the care of your patient. This consultation was discussed with Dr. Lanza. The impression and plan of care have been directed as dictated.
[2018-11-30] MEDS: SODIUM CHLORIDE 0.9% 1,000 ML IV SCH (19:16)
[2018-11-30] MEDS: ISOSORBIDE MONONITRATE ER 30 MG TAB.ER.24H PO SCH (20:13)
[2018-11-30] MEDS: ATORVASTATIN 10 MG TAB PO SCH (20:13)
[2018-11-30] MEDS: SERTRALINE 100 MG TAB PO SCH (20:13)
--- NOTE | 2018-11-30 23:19 | PN ---
PROGRESS NOTE DATE OF SERVICE: 11/30/2018 PRESENTING COMPLAINT: Lower GI bleed. INTERVAL HISTORY: This patient presented with 3 days of lower GI bleed. Daughter at the bedside. She stated that the patient also had some blood clots indicative of upper GI bleed. No abdominal pain. No further bleeding right now. Patient is on clear liquid diet. Seen by Gastroenterology pending endoscopy on . REVIEW OF SYSTEMS: Done for constitutional, cardiovascular, GI, pulmonary; relevant findings as above. MEDICATIONS: Current medications reviewed. PHYSICAL EXAMINATION: VITAL SIGNS: Temperature 97.5, pulse 55, respiratory 18, blood pressure 130/78, pulse ox 98% on room air. GENERAL APPEARANCE: Lying in bed, awake. EYES: Pupils equal. Conjunctivae normal. NECK: JVD not raised. RESPIRATORY: Effort normal. LUNGS: Fair air entry. CARDIOVASCULAR: First and second sounds normal. No edema. ABDOMEN: Soft, nontender. Liver and spleen not palpable. PSYCHIATRY: Alert and oriented x3. Mood and affect normal. INVESTIGATIONS: White count 11.6, hemoglobin 10. ASSESSMENT: 1. Acute gastrointestinal bleed could be upper or lower. The patient did have some blood clots indicative of upper gastrointestinal bleed. The patient's Eliquis has been held. 2. Paroxysmal atrial fibrillation chronically on Eliquis, currently in sinus rhythm. 3. Chronic congestive heart failure from diastolic dysfunction. Ejection fraction 55%. 4. Gastroesophageal reflux disease. 5. Essential hypertension. 6. Hyperlipidemia. 7. Primary osteoarthritis. 8. Coronary artery disease with prior history of stent. 9. Chronic gait dysfunction uses a walker. 10.Renal failure, acute versus chronic. PLAN: Continue current medication and treatment plan. Repeat a CBC, BMP in the morning. Gastroenterology is planning for EGD colonoscopy on . Care was discussed with daughter at the bedside. Follow closely. MMODL / IJN: [id number] /
[2018-12-01] MEDS: methylPREDNISolone SOD SUCCI 40 MG/ML 1 ML VIAL IV SCH ×4 (00:44→23:34)
--- NOTE | 2018-12-01 01:15 | CT ---
EXAM: CT Head Without Intravenous Contrast CLINICAL HISTORY: Fall. TECHNIQUE: Axial computed tomography images of the head/brain without intravenous contrast. Coronal and sagittal reformations provided. CTDI is 0.085, 0. 085, 49.1 mGy and DLP is 1121.4 mGy-cm. This CT exam was performed using one or more of the following dose reduction techniques: automated exposure control, adjustment of the mA and/or kV according to patient size, and/or use of iterative reconstruction technique. COMPARISON: CT dated 04/06/2018. FINDINGS: Brain: No acute intracranial hemorrhage. No evidence of acute infarct. No significant white matter disease. No edema. No mass effect or midline shift. Generalized atrophy. Ventricles: Enlargement of ventricles due to atrophy. Bones/joints: Unremarkable. No acute fracture. Soft tissues: Unremarkable. Sinuses: Mucous retention cyst in the right maxillary sinus. Remainder of visualized paranasal sinuses are clear. Mastoid air cells: Unremarkable as visualized. No mastoid effusion. IMPRESSION: 1. No acute intracranial hemorrhage, skull fracture, or other acute intracranial abnormality. 2. Atrophy.
--- NOTE | 2018-12-01 01:28 | XR ---
EXAM: XR Thoracic Spine, 3 Views CLINICAL HISTORY: Fall. TECHNIQUE: Frontal, lateral and swimmer's views of the thoracic spine. A total of 4 images were obtained. COMPARISON: No relevant prior studies available. FINDINGS: Vertebrae: No radiographic evidence of acute fracture or malalignment of the thoracic spine. Disc spaces: Degenerative spondylosis of the thoracic spine. Soft tissues: Unremarkable as visualized. IMPRESSION: 1. No radiographic evidence of acute fracture or malalignment of the thoracic spine. If there is clinical concern for fracture, CT can be obtained to further assess. 2. Degenerative spondylosis of the thoracic spine.
[2018-12-01 07:41] LABS: Anisocytosis Slight; Basophils % (A) 0 %; Eosinophils % (A) 0 %; HCT 33.3 % (39.0-53.0); HGB 10.2 gm/dL (13.0-17.5); Hypochromasia Marked; Lymphocytes # (A) 0.9 k/uL (1.0-4.8); Lymphocytes % (A) 8 %; MCH 23.6 pg (25.0-35.0); MCHC 30.5 g/dL (31.0-37.0); MCV 77.3 fL (80.0-100.0); Mean Platelet Volume 5.7; Microcytosis Slight; Monocytes # (A) 0.2 k/uL (0-1.0); Monocytes % (A) 1 %; Neutrophils # (A) 10.4 k/uL (1.3-7.7); Neutrophils % (A) 90 %; Platelet Count 414 k/uL (150-450); RDW 17.1 % (11.5-15.5); WBC 11.6 k/uL (3.8-10.6)
[2018-12-01 08:00] LABS: Potassium 4.8 mmol/L (3.5-5.1)
[2018-12-01] MEDS: MULTIVITAMINS, THERA 1 EACH TAB PO SCH (09:38)
[2018-12-01] MEDS: PANTOPRAZOLE 40 MG/10 ML VIAL IV SCH (09:39)
[2018-12-01] MEDS: ALPRAZolam 0.25 MG TAB PO PRN ×2 (09:39→23:34)
[2018-12-01] MEDS ORDERED: BISACODYL 5 MG TABLET.DR PO STA (12:29)
--- NOTE | 2018-12-01 12:33 | P.PN ---
Subjective Progress Note Date: 12/01/18 Principal diagnosis: GI bleed 83-year-old gentleman history of ulcerative colitis admitted with acute rectal bleeding. Nursing reports 1 episode this morning of rectal bleeding very small in nature. Denies abdominal pain. EGD colonoscopy scheduled tomorrow. Elevated sed rate CRP started on IV steroids last night. Hemoglobin 10.2. White count 11.6. Objective - Vital Signs Vital signs: Vital Signs Temp 97.8 F 12/01/18 07:00 Pulse 69 12/01/18 07:00 Resp 16 12/01/18 07:00 BP 127/72 12/01/18 07:00 Pulse Ox 96 12/01/18 08:05 Intake & Output 11/30/18 12/01/18 12/01/18 18:59 06:59 18:59 Other: Voiding Method Toilet Toilet # Voids 5 4 # Bowel Movements 3 - Exam General appearance: The patient is alert, oriented, in no acute distress. HET: Head is normocephalic and atraumatic. Pupils are equal and reactive. Oropharynx is clear without lesions. Neck: Supple without lymphadenopathy. Trachea midline. Heart: S1 S2. Regular rate and rhythm. Lungs: No crackles or wheezes are heard. Abdomen: Soft, nontender, nondistended with bowel sounds. No peritoneal signs. No palpable organomegaly or masses. Extremities: Normal skin color and turgor. No cyanosis, rash, ulceration, clubbing, or edema. Radial and pedal pulses are 2/4 bilaterally. Neurological: No focal deficits. Strength and sensation are grossly intact. - Labs CBC & Chem 7: 12/01/18 06:55 12/01/18 06:55 Labs: Abnormal Lab Results - Last 24 Hours (Table) 11/30/18 11/30/18 12/01/18 Range/Units 02:53 02:53 06:55 WBC 11.6 H (3.8-10.6) k/uL Hgb 10.2 L (13.0-17.5) gm/dL Hct 33.3 L (39.0-53.0) % MCV 77.3 L (80.0-100.0) fL MCH 23.6 L (25.0-35.0) pg MCHC 30.5 L (31.0-37.0) g/dL RDW 17.1 H (11.5-15.5) % Neutrophils # 10.4 H (1.3-7.7) k/uL Lymphocytes # 0.9 L (1.0-4.8) k/uL ESR 47 H (0-15) mm/hr Chloride (98-107) mmol/L Carbon Dioxide (22-30) mmol/L Creatinine (0.66-1.25) mg/dL Glucose (74-99) mg/dL C-Reactive Protein 42.6 H (<10.0) mg/L 12/01/18 Range/Units 06:55 WBC (3.8-10.6) k/uL Hgb (13.0-17.5) gm/dL Hct (39.0-53.0) % MCV (80.0-100.0) fL MCH (25.0-35.0) pg MCHC (31.0-37.0) g/dL RDW (11.5-15.5) % Neutrophils # (1.3-7.7) k/uL Lymphocytes # (1.0-4.8) k/uL ESR (0-15) mm/hr Chloride 110 H (98-107) mmol/L Carbon Dioxide 21 L (22-30) mmol/L Creatinine 1.35 H (0.66-1.25) mg/dL Glucose 141 H (74-99) mg/dL C-Reactive Protein (<10.0) mg/L Assessment and Plan (1) Acute GI bleeding Narrative/Plan: 83-year-old gentleman with a history of ulcerative colitis previously maintained on balsalazide discontinued 2-3 months ago secondary to side effects admitted with painless rectal bleeding passing red clots without hematemesis or melena. Possible exacerbation of inflammatory bowel disease possible acute colonic diverticular bleed possible combination of both. Current Visit: Yes Status: Acute Code(s): K92.2 - GASTROINTESTINAL HEMORRHAGE, UNSPECIFIED SNOMED Code(s): 76119261 (2) History of ulcerative colitis Current Visit: Yes Status: Acute Code(s): Z87.19 - PERSONAL HISTORY OF OTHER DISEASES OF THE DIGESTIVE SYSTEM SNOMED Code(s): 686520821 (3) Paroxysmal atrial fibrillation Current Visit: Yes Status: Acute Code(s): I48.0 - PAROXYSMAL ATRIAL FIBRILLATION SNOMED Code(s): 507367224 (4) Acute blood loss anemia Current Visit: Yes Status: Acute Code(s): D62 - ACUTE POSTHEMORRHAGIC ANEMIA SNOMED Code(s): 092817378 Plan: 1. Continue with IV Solu-Medrol. EGD colonoscopy tomorrow. CBC monitoring. The supervisor dairy sanitation has discussed the risks, benefits and alternative therapies for the above-mentioned procedure and for both sedation/analgesia as well as necessary blood product administration, if indicated, as they pertain to this patient. The patient has indicated understanding and acceptance of the risks and procedures discussed. Assessment and plan a care discussed with Dr. Lanza
[2018-12-01] MEDS ORDERED: PEG 3350-NA SULF,BICARB,CL/KCL 4,000 ML BOTTLE PO ONE (15:00)
[2018-12-01] MEDS: SODIUM CHLORIDE 0.9% 1,000 ML IV SCH (19:30)
[2018-12-01] MEDS: ATORVASTATIN 10 MG TAB PO SCH (20:36)
[2018-12-01] MEDS: SERTRALINE 100 MG TAB PO SCH (20:36)
[2018-12-01] MEDS: ISOSORBIDE MONONITRATE ER 30 MG TAB.ER.24H PO SCH (20:36)
--- NOTE | 2018-12-01 21:31 | PN ---
PROGRESS NOTE DATE OF SERVICE: 12/01/2018. PRESENTING COMPLAINT: GI bleed. INTERVAL HISTORY: The patient presented with 3 days of lower GI bleed including blood clots. Early hours of today, the nurse called me that the patient had taken a fall, complaining of some upper back pain and did also hit his head. I did order a CT scan of the skull and the spine. The patient otherwise was doing well. EGD endoscopy is being planned for tomorrow. REVIEW OF SYSTEMS: Done for constitutional, cardiovascular, GI, pulmonary, musculoskeletal and relevant findings as above. The patient's pain later was controlled later in the day. PHYSICAL EXAMINATION: VITAL SIGNS: Temperature 97.4, pulse 74, respiration 16, blood pressure 120/72, pulse ox 96% on room air. GENERAL APPEARANCE: Lying in bed, comfortable, awake. EYES: Pupils equal. Conjunctivae normal. NECK: JVD not raised. Mass not palpable. RESPIRATORY: Effort normal. LUNGS: Are clear. CARDIOVASCULAR: 1st and 2nd sounds normal. No edema. ABDOMEN: Soft, nontender. Liver and spleen not palpable. PSYCHIATRY: Alert and oriented x3. Mood and affect normal. MUSCULOSKELETAL: No point tenderness in the affected area. INVESTIGATIONS: White count 11.6, hemoglobin 10.2, potassium 4.8, BUN 19, creatinine 1.35. CT scan of the brain, no fracture reported. Thoracic spine x-ray no fracture reported. ASSESSMENT: 1. Acute gastrointestinal bleed could be upper/lower. The patient's Eliquis has been held pending EGD colonoscopy tomorrow. Started on IV steroids per Gastroenterology. 2. Paroxysmal atrial fibrillation chronically on Eliquis, currently held. Patient is in sinus rhythm. 3. Chronic congestive heart failure from diastolic dysfunction. EF 55%. 4. Gastroesophageal reflux disease. 5. Essential hypertension. 6. Hyperlipidemia. 7. Primary osteoarthritis. 8. Coronary artery disease with prior history of stent. 9. Chronic gait dysfunction, uses a walker. 10.Renal failure, chronic, possibly nephrosclerosis. PLAN: The patient's radiological studies have been negative. Continue with increase patient's IV fluids. Repeat electrolytes. Change to lactated Ringer's. We will also do a renal ultrasound. MMODL / IJN: [id number] /
[2018-12-01] MEDS: LACTATED RINGERS 1,000 ML IV SCH (21:34)
[2018-12-01] MEDS ORDERED: ONDANSETRON 4 MG/2 ML VIAL IVP PRN (21:57)
[2018-12-02] MEDS ORDERED: LIDOCAINE 1% 20 ML VIAL (10MG/ML) FOR IV START INTRADERMA PRN (07:18)
[2018-12-02] MEDS ORDERED: HYDROmorphone 0.5 MG/0.5 ML SYRINGE IVP PRN (07:18)
[2018-12-02] MEDS: PANTOPRAZOLE 40 MG/10 ML VIAL IV SCH (08:48)
[2018-12-02] MEDS: methylPREDNISolone SOD SUCCI 40 MG/ML 1 ML VIAL IV SCH ×3 (08:48→23:19)
[2018-12-02] MEDS: MULTIVITAMINS, THERA 1 EACH TAB PO SCH (08:49)
[2018-12-02] MEDS: LACTATED RINGERS 1,000 ML IV SCH ×3 (08:56→20:55)
--- NOTE | 2018-12-02 09:37 | US ---
EXAMINATION TYPE: US kidneys/renal and bladder DATE OF EXAM: 12/02/2018 COMPARISON: NONE CLINICAL HISTORY: poss CKD. EXAM MEASUREMENTS: Right Kidney: 10.2 x 4.5 x 4.7 cm Left Kidney: 10.1 x 5.6 x 4.3 cm Somewhat technically difficult due to extensive overlying bowel gas. Right Kidney: nodular contour, upper pole cyst 1.5 x 1.3 x 1.9cm Left Kidney: stone noted measuring 0.6 x 0.5 x 0.5cm, upper pole cyst measuring 2.0 x 1.3 x 1.2cm Bladder: wnl IMPRESSION: 1. Nonobstructing left renal calculus. 2. There are hypoechoic anechoic lesions as measured above within both kidneys which do not meet the criteria of simple cyst. This likely is technical. Finding on the right with reported by previous CT scan. Finding on the left was not seen by previous CT scan could be correlated with repeat CT as clin ically warranted. 3. There is mild bladder wall thickening which is nonspecific correlate for cystitis. 4. Nodular contour of the right kidney with cortical thinning bilaterally correlate for chronic medic al renal disease.
[2018-12-02 10:14] LABS: Calcium 8.9 mg/dL (8.4-10.2); Potassium 4.5 mmol/L (3.5-5.1)
[2018-12-02] MEDS ORDERED: PROPOFOL 10 MG/ML 20 ML VIAL IV ONE (14:30)
[2018-12-02] MEDS ORDERED: LIDOCAINE 1% INJ 10MG/ML (20 ML MDV) ONE (14:30)
[2018-12-02] MEDS ORDERED: IV FLUID CONTINUATION 500 ML IV ONE (14:34)
--- NOTE | 2018-12-02 15:41 | P.PCN ---
Date of Procedure: 12/02/18 Description of Procedure: Brief history: 83-year-old gentleman known to Dr. Alesha mario with a past medical history of ulcerative colitis previously maintained on balsalazide discontinued 2-3 months ago secondary to "side effects". Patient presents with painless rectal bleeding 2 days passing blood clots with lightheadedness. Denies hematemesis or melena. Last colonoscopy a proximally 3 years ago. No recent EGD. Additional past medical history paroxysmal atrial fibrillation maintained on aspirin and Eliquis. Admission hemoglobin 10 unchanged today still at 10. Inflammatory markers were drawn and patient was found to have elevation in both his ESR and CRP. Subsequently Solu-Medrol 20 mg every 8 hours was started. Procedure performed: Esophagogastroduodenoscopy Colonoscopy with biopsies and descending colon polypectomy Estimated blood loss: Minimal. Preoperative diagnosis: Anemia, diarrhea, blood per rectum, history ulcerative colitis Anesthesia: [facility] Procedure: After informed consent was obtained from the patient was brought into the endoscopy unit and IV sedation was administered by anesthesia under continuous monitoring. Initially upper endoscopy was done. The Olympus GF 190 video endoscope was inserted inserted into the mouth and esophagus intubated without any difficulty and was gradually advanced into the stomach and duodenum and carefully examined. The bulb and second part of the duodenum appeared normal. The scope was then withdrawn into the stomach adequately insufflated with air and upon careful examination the antrum and body, cardia and fundus appeared normal. The scope was then withdrawn into the esophagus. A medium-sized hiatal hernia was noted. The GE junction was located at 36 cm to the incisors. It appeared regular with no erythema erosions or ulcerations. Rest of the esophagus appeared normal. Patient tolerated the procedure well. At this time the patient continued to remain sedation. Initial digital rectal examination was normal. Olympus CF 190 video colonoscope was then inserted into the rectum and gradually advanced to the cecum without any difficulty. Careful examination was performed as the scope was gradually being withdrawn. The prep was fair. Random biopsies were taken of the right colon, transverse colon and proximal descending colon where the tissue appeared normal. 3 diminutive descending colon polyps measuring 2-5 mm were removed with cold forcep polypectomy. Random biopsies of the distal descending colon and rectum were taken where the tissue appeared friable, erythematous and edematous secondary to active moderate to severe ulcerative colitis. Retroflexion was performed in the rectum and no lesions were noted. Patient tolerated the procedure well. Impression: 1. Active moderate to severe ulcerative colitis from the anal verge to 35 cm proximal to the colon. 2. Random biopsies of the left colon, transverse colon, proximal descending colon, distal descending colon, and rectum. 3. 3 diminutive descending colon polyps removed with cold forcep polypectomy. 4. Internal hemorrhoids. Recommendations: Findings of this examination were discussed with the patient as well as his daughter. Okay for diet. Will continue IV Solu-Medrol for now, transitioned to oral prednisone therapy prior to discharge. Will start [place] enemas nightly. Await pathology from biopsies. Patient will need follow-up with Dr. Eduardo of the gastroenterology clinic after discharge.
[2018-12-02 17:44] LABS: Appearance,Urine Clear (Clear); Bilirubin,Urine Negative (Negative); Blood,Urine Negative (Negative); Color,Urine Yellow; Glucose,Urine (UA) Negative (Negative); Ketones,Urine Negative (Negative); Leukocyte Esterase,Urine Negative (Negative); Nitrite,Urine Negative (Negative); PH, Urine 6.5 (5.0-8.0); Protein,Urine Trace (Negative); Specific Gravity,Urine 1.015 (1.001-1.035); Urobilinogen,Urine <2.0 mg/dL (<2.0)
--- NOTE | 2018-12-02 19:00 | PN ---
PROGRESS NOTE DATE OF SERVICE: 12/02/2018 PRESENTING COMPLAINT: GI bleed. INTERVAL HISTORY: The patient presented with 3 days of lower GI bleed with blood clots. The patient has been on IV steroids. The patient did undergo colonoscopy showing evidence of significant ulcerative colitis. The patient has been on clear liquids otherwise. REVIEW OF SYSTEMS: Done for constitutional, cardiovascular, GI, pulmonary and relevant findings as above. CURRENT MEDICATIONS: Reviewed that include IV Solu-Medrol 20 mg every 8 hours. EXAMINATION: VITAL SIGNS: Temperature 97.9, pulse 65, respiration 17, blood pressure is 137/75, pulse ox 96% on room air. GENERAL APPEARANCE: Lying in bed, awake. EYES: Pupils equal. Conjunctivae normal. NECK: JVD not raised. Mass not palpable. RESPIRATORY: Effort normal. LUNGS are clear. CARDIOVASCULAR: First and second sounds normal. No edema. ABDOMEN: Soft, nontender. Liver and spleen not palpable. PSYCHIATRY: Awake, answering simple questions. INVESTIGATIONS: Potassium 4.5, BUN 20, creatinine 1.19. Colonoscopy results are noted. ASSESSMENT: 1. Acute ulcerative colitis flare up for which patient is on steroids. 2. Paroxysmal atrial fibrillation for which it has been on Eliquis, currently held for gastrointestinal bleed. 3. Chronic congestive heart failure from diastolic dysfunction. EF 55%. 4. Gastroesophageal reflux disease. 5. Essential hypertension. 6. Hyperlipidemia. 7. Primary osteoarthritis. 8. Coronary artery disease with prior history of stent. 9. Chronic gait dysfunction, uses a walker. 10.Acute renal failure likely prerenal with creatinine coming down. PLAN: Continue current medication and treatment plan. Await further input from Gastroenterology in terms of medications. The patient is also being started on rectal mesalamine, by Gastroenterology. Diet will be advanced as per Gastroenterology. Follow. MMODL / IJN: [id number] /
[2018-12-02 19:17] VITALS: RESP 16
[2018-12-02] MEDS: ISOSORBIDE MONONITRATE ER 30 MG TAB.ER.24H PO SCH (20:50)
[2018-12-02] MEDS: ATORVASTATIN 10 MG TAB PO SCH (20:50)
[2018-12-02] MEDS: SERTRALINE 100 MG TAB PO SCH (20:50)
[2018-12-02] MEDS ORDERED: MESALAMINE 4 GM/60 ML ENEMA RECTAL SCH (21:00)
[2018-12-02] MEDS: ALPRAZolam 0.25 MG TAB PO PRN (23:19)
[2018-12-03 07:53] LABS: Anisocytosis Slight; Basophils % (A) 0 %; Eosinophils % (A) 0 %; HCT 28.3 % (39.0-53.0); HGB 8.9 gm/dL (13.0-17.5); Hypochromasia Marked; Lymphocytes # (A) 1.1 k/uL (1.0-4.8); Lymphocytes % (A) 11 %; MCH 24.3 pg (25.0-35.0); MCHC 31.4 g/dL (31.0-37.0); MCV 77.4 fL (80.0-100.0); Microcytosis Slight; Monocytes # (A) 0.3 k/uL (0-1.0); Monocytes % (A) 3 %; Neutrophils # (A) 8.6 k/uL (1.3-7.7); Neutrophils % (A) 85 %; Platelet Count 371 k/uL (150-450); RBC 3.66 m/uL (4.30-5.90); RDW 17.2 % (11.5-15.5); WBC 10.2 k/uL (3.8-10.6)
[2018-12-03 08:08] LABS: Calcium 8.5 mg/dL (8.4-10.2); Potassium 4.2 mmol/L (3.5-5.1)
[2018-12-03] MEDS: LACTATED RINGERS 1,000 ML IV SCH ×3 (09:08→09:54)
[2018-12-03] MEDS: methylPREDNISolone SOD SUCCI 40 MG/ML 1 ML VIAL IV SCH ×2 (09:11→15:58)
[2018-12-03] MEDS: MULTIVITAMINS, THERA 1 EACH TAB PO SCH (09:12)
[2018-12-03 15:10] VITALS: BP 128/62; PULSE 77; TEMP 97.9
--- NOTE | 2018-12-03 16:29 | P.PN ---
Subjective Progress Note Date: 12/03/18 Principal diagnosis: Diarrhea, blood per rectum Patient denying any abdominal pain. No further blood per rectum. Tolerating diet. Objective - Vital Signs Vital signs: Vital Signs Temp 97.9 F 12/03/18 15:00 Pulse 77 12/03/18 15:00 Resp 16 12/03/18 15:00 BP 128/62 12/03/18 15:00 Pulse Ox 98 12/03/18 15:00 Intake & Output 12/02/18 12/03/18 12/03/18 18:59 06:59 18:59 Intake Total 1000 Balance 1000 Intake: IV 400 Intake, IV Titration 600 Amount Lactated Ringers 1,000 ml 600 @ 75 mls/hr IV .[id number] AVERY Rx#:[id number] Other: Voiding Method Incontinent # Voids 1 1 - Exam On physical examination, patient appears comfortable in no apparent distress. HEAD: Normocephalic, atraumatic. EYES: No scleral icterus. No conjunctival injection. MOUTH: No lesions, tongue midline. NECK: Trachea midline, no gross abnormalities. CHEST: Clear to auscultation with no wheezing or rhonchi appreciated. ABDOMEN: Soft, obese. Bowel sounds are positive. No organomegaly. No guarding or rigidity. EXTREMITIES: No pedal edema. SKIN: No rashes, no jaundice. NEUROLOGIC: Alert and oriented only to person. - Labs CBC & Chem 7: 12/03/18 06:52 12/03/18 06:52 Labs: Abnormal Lab Results - Last 24 Hours (Table) 12/01/18 12/03/18 12/03/18 Range/Units 17:20 06:52 06:52 RBC 3.66 L (4.30-5.90) m/uL Hgb 8.9 L (13.0-17.5) gm/dL Hct 28.3 L (39.0-53.0) % MCV 77.4 L (80.0-100.0) fL MCH 24.3 L (25.0-35.0) pg RDW 17.2 H (11.5-15.5) % Neutrophils # 8.6 H (1.3-7.7) k/uL Chloride 112 H (98-107) mmol/L Glucose 126 H (74-99) mg/dL Urine Protein Trace H (Negative) Assessment and Plan (1) Left sided ulcerative colitis with rectal bleeding Narrative/Plan: Patient who recently stopped his medical treatment of ulcerative colitis who presented to the hospital with complaints of diarrhea and blood per rectum. The patient had EGD which was essentially negative and colonoscopy which showed active left-sided colitis. Currently he is on steroid therapy with 5 ASA therapy rectally. Current Visit: Yes Status: Acute Code(s): K51.511 - LEFT SIDED COLITIS WITH RECTAL BLEEDING SNOMED Code(s): 170994995 (2) Acute GI bleeding Current Visit: Yes Status: Acute Code(s): K92.2 - GASTROINTESTINAL HEMORRHAGE, UNSPECIFIED SNOMED Code(s): 51410952 (3) Acute blood loss anemia Current Visit: Yes Status: Acute Code(s): D62 - ACUTE POSTHEMORRHAGIC ANEMIA SNOMED Code(s): 084387808 Plan: Supportive care Okay for diet Monitor hemoglobin and transfuse as needed Continue prednisone 40 mg daily Continue Canasa enemas nightly Follow-up in the outpatient setting with gastroenterology for titration of medications Patient is okay for discharge from gastroenterology standpoint Thank you for allowing us to persist. In the care of the patient
--- NOTE | 2018-12-04 10:44 | DS ---
DISCHARGE SUMMARY DATE OF ADMISSION: 11/29/2018 DATE OF DISCHARGE: 12/03/2018 FINAL DIAGNOSES: 1. Acute ulcerative colitis flareup. 2. Paroxysmal atrial fibrillation, for which patient is on Eliquis. 3. Chronic congestive heart failure from diastolic dysfunction, ejection fraction 55%. 4. Gastroesophageal reflux disease. 5. Essential hypertension. 6. Hyperlipidemia. 7. Primary osteoarthritis. 8. Coronary artery disease with prior history of stent. 9. Chronic gait dysfunction. Uses a walker. 10.Acute renal failure, prerenal, corrected. HOSPITAL COURSE: This patient presented with lower GI bleed. Colonoscopy showed the patient to have ulcerative colitis. Patient was put on steroids and Pentasa enema. Doing much better at the time of discharge; tolerating a diet. Abdomen is soft, nontender. I discussed with Dr. Lanza today that the patient is to go home on oral steroids and rectal Canasa. Care was discussed with the patient. Patient to resume Eliquis in 5 days' time. CONSULTATION: Dr. Lanza from GI. PHYSICAL EXAMINATION: VITAL SIGNS: Temperature 97.9, pulse 77, respiration 16, blood pressure 120/62, pulse ox 98% on room air. ABDOMEN: Soft, nontender. PSYCH: Alert and oriented x3. INVESTIGATIONS: White count 10.2, hemoglobin 8.9, potassium 4.2. BUN was 1.4 and did come down to 1.08. DISCHARGE MEDICATIONS: 1. Aspirin 81 mg a day. 2. Imdur ER 30 mg at bedtime. 3. Nitrostat 0.4 sublingually q.5 p.r.n. 4. Men's Multivitamin 2 tablets p.o. daily. 5. Zocor 20 mg at bedtime. 6. Xanax 0.25 p.o. at bedtime p.r.n. 7. Eliquis 5 mg p.o. b.i.d. 8. Zantac 150 mg p.o. b.i.d. 9. Tylenol 1000 mg p.o. daily p.r.n. 10.Robaxin 500 mg p.o. b.i.d. p.r.n. 11.Zoloft 100 mg p.o. at bedtime. 12.Canasa 1000 mg rectally at bedtime. 13.Prednisone 40 mg a day. Follow up with Cardiology on 12/11/2018. Follow up with Dr. Radha Eduardo on 12/08/2018. Follow up with Dr. Velasquez on 12/09/2018. Soft bland diet. Patient to start his Eliquis in 5 days. Discussion and discharge planning more than 35 minutes. MMODL / IJN: [id number] /
== END 2018-12-03 17:27 | disposition home or self-care (01) | DRG 386 ==
LOC: EC 11:13 → 4MS4W 17:02 → 4SSUR 20:29 → OBSVTOIN 11-30 09:10 → 4MS4W 12-03 09:37
PROVIDERS: ADMIT Hospitalist; ATTEND Hospitalist
PROC: 0DBL8ZX Excision of Transverse Colon, Via Natural or Artificial Opening Endoscopic, Diagnostic (ICD-10-PCS; 2018-12-02)
PROC: 0DBF8ZX Excision of Right Large Intestine, Via Natural or Artificial Opening Endoscopic, Diagnostic (ICD-10-PCS; 2018-12-02)
PROC: 0DBG8ZX Excision of Left Large Intestine, Via Natural or Artificial Opening Endoscopic, Diagnostic (ICD-10-PCS; 2018-12-02)
PROC: 0DBB8ZX Excision of Ileum, Via Natural or Artificial Opening Endoscopic, Diagnostic (ICD-10-PCS; 2018-12-02)
PROC: 0DBM8ZX Excision of Descending Colon, Via Natural or Artificial Opening Endoscopic, Diagnostic (ICD-10-PCS; 2018-12-02)
PROC: 0DJ08ZZ Inspection of Upper Intestinal Tract, Via Natural or Artificial Opening Endoscopic (ICD-10-PCS; 2018-12-02)
PROC: 0DBP8ZX Excision of Rectum, Via Natural or Artificial Opening Endoscopic, Diagnostic (ICD-10-PCS; principal; 2018-12-02 12:45)
PROC: 0DBM8ZX Excision of Descending Colon, Via Natural or Artificial Opening Endoscopic, Diagnostic (ICD-10-PCS; 2018-12-02 12:45)
DX: K51.511 Left sided colitis with rectal bleeding (principal); I50.32 Chronic diastolic (congestive) heart failure; I13.0 Hypertensive heart and chronic kidney disease with heart failure and stage 1 through stage 4 chronic kidney disease, or unspecified chronic kidney disease; N17.9 Acute kidney failure, unspecified; D62 Acute posthemorrhagic anemia; I48.0 Paroxysmal atrial fibrillation; K44.9 Diaphragmatic hernia without obstruction or gangrene; K21.9 Gastro-esophageal reflux disease without esophagitis; K64.8 Other hemorrhoids; I25.10 Atherosclerotic heart disease of native coronary artery without angina pectoris; E78.5 Hyperlipidemia, unspecified; F41.9 Anxiety disorder, unspecified; L98.9 Disorder of the skin and subcutaneous tissue, unspecified; M54.6 Pain in thoracic spine; M19.91 Primary osteoarthritis, unspecified site; R26.9 Unspecified abnormalities of gait and mobility; Z79.01 Long term (current) use of anticoagulants; Z79.82 Long term (current) use of aspirin; Z79.899 Other long term (current) drug therapy; Z86.19 Personal history of other infectious and parasitic diseases; Z95.5 Presence of coronary angioplasty implant and graft; Z96.652 Presence of left artificial knee joint; W19.XXXA Unspecified fall, initial encounter; Y92.239 Unspecified place in hospital as the place of occurrence of the external cause
CPT/HCPCS: 36415; 43239; 45380; 70450; 72070; 76770; 80048; 80053; 81003; 82272; 84484; 85025; 85610; 85652; 85730; 86140; 88305; 93005; 94760; 96361; 96374; 99284

== ENCOUNTER 2019-11-29 16:54 | Inpatient (IN) | payer MEDICARE ==
[2019-11-29] MEDS ORDERED: SODIUM CHLORIDE 0.9% 500 ML 500 ML IV STA (17:29)
[2019-11-29] MEDS ORDERED: DILTIAZEM DRIP BOLUS FROM BAG 1 MG SOLN IV ONE ×2 (17:30→19:34)
[2019-11-29] MEDS ORDERED: PANTOPRAZOLE 40 MG/10 ML VIAL IVP STA (17:31)
[2019-11-29] MEDS ORDERED: ACETAMINOPHEN TAB 500 MG TAB PO STA (17:31)
[2019-11-29] MEDS ORDERED: LEVOFLOXACIN 750MG-D5W PMX 750 MG in DEXTROSE/WATER 1 150ML.BAG IVPB STA (17:37)
[2019-11-29] MEDS ORDERED: PIPERACILLIN-TAZOBACTAM 3.375 GM in SODIUM CHLORIDE 0.9% 100 ML IVPB STA (17:37)
[2019-11-29] MEDS ORDERED: PNEUMONIA PROTOCOL UTILIZED 1 EACH MISC PO PRN (17:37)
[2019-11-29] MEDS ORDERED: ACETAMINOPHEN TAB 325 MG TAB PO PRN (17:38)
[2019-11-29] MEDS ORDERED: NALOXONE 0.4 MG/ML 1 ML VIAL IV PRN (17:38)
[2019-11-29 17:40] LABS: Anisocytosis Slight; Basophils % (A) 0 %; Eosinophils % (A) 0 %; HCT 36.9 % (39.0-53.0); HGB 11.3 gm/dL (13.0-17.5); Hypochromasia Slight; Lymphocytes # (A) 0.4 k/uL (1.0-4.8); Lymphocytes % (A) 3 %; MCH 24.4 pg (25.0-35.0); MCHC 30.7 g/dL (31.0-37.0); MCV 79.5 fL (80.0-100.0); Mean Platelet Volume 7.6; Microcytosis Slight; Monocytes # (A) 0.3 k/uL (0-1.0); Monocytes % (A) 3 %; Neutrophils # (A) 11.5 k/uL (1.3-7.7); Neutrophils % (A) 94 %; Platelet Count 162 k/uL (150-450); RBC 4.64 m/uL (4.30-5.90); RDW 18.1 % (11.5-15.5); WBC 12.3 k/uL (3.8-10.6)
--- NOTE | 2019-11-29 17:43 | ED ---
General Adult HPI - General Chief complaint: Arrhythmia/Palpitations Stated complaint: A-fib Time Seen by Provider: 11/29/19 17:09 Source: patient, RN notes reviewed, old records reviewed (Chart from [facility] reviewed) Mode of arrival: EMS Limitations: no limitations - History of Present Illness Initial comments: Patient is a pleasant 84-year-old male presenting to the emergency Department as a transfer from [facility]. Patient denies having any complaints at this time. Chart was reviewed. Patient was therefore altered mental status. Patient was found to be in A. fib with RVR. Patient is on Eliquis. There is question of recent C. diff. Patient was Hemoccult positive. There was questionable pneumonia on chest x-ray. Patient did receive 2 L fluid bolus. Lactic acid was 2.7. Potassium was low and replaced. Patient is unclear if he has history of similar symptoms previous visit. - Related Data Home Medications Medication Instructions Recorded Confirmed Aspirin 81 mg PO DAILY@0800 04/29/15 11/29/18 Isosorbide Mononitrate ER [Imdur] 30 mg PO HS@199904/29/15 11/29/18 Nitroglycerin Sl Tabs [Nitrostat] 0.4 mg SUBLINGUAL Q5M PRN 04/29/15 11/29/18 Multivitamin [Men's Multi-Vitamin] 2 tab PO DAILY@0800 07/28/15 11/29/18 Simvastatin [Zocor] 20 mg PO HS@199907/28/15 11/29/18 ALPRAZolam [Xanax] 0.25 mg PO HS PRN 03/14/18 11/29/18 Apixaban [Eliquis] 5 mg PO BID@08,199903/14/18 11/29/18 Ranitidine HCl [Zantac] 150 mg PO BID@0800,199903/14/18 11/29/18 Acetaminophen [Tylenol] 1,000 mg PO DAILY PRN 11/29/18 11/29/18 Methocarbamol [Robaxin] 500 mg PO BID PRN 11/29/18 11/29/18 Sertraline HCl [Zoloft] 100 mg PO HS@199911/29/18 11/29/18 Previous Rx's Medication Instructions Recorded Mesalamine [Canasa] 1,000 mg RC HS #30 supp 12/03/18 predniSONE [Deltasone] 40 mg PO DAILY #100 tab 12/03/18 Allergies Allergy/AdvReac Type Severity Reaction Status Date / Time No Known Allergies Allergy Verified 11/29/18 12:26 Review of Systems ROS Statement: Those systems with pertinent positive or pertinent negative responses have been documented in the HPI. ROS Other: All systems not noted in ROS Statement are negative. Constitutional: Denies: fever Eyes: Denies: eye pain ENT: Denies: ear pain Respiratory: Denies: dyspnea Cardiovascular: Denies: chest pain, palpitations Endocrine: Denies: fatigue Gastrointestinal: Denies: abdominal pain Genitourinary: Denies: dysuria Musculoskeletal: Denies: back pain Skin: Denies: rash Neurological: Denies: weakness Past Medical History Past Medical History: Atrial Fibrillation, Heart Failure, GERD/Reflux, Hyperlipidemia, Hypertension, Osteoarthritis (OA), Skin Disorder Additional Past Medical History / Comment(s): Crohn's, vertigo History of Any Multi-Drug Resistant Organisms: C-DIFF Date of last positivie culture/infection: 03/14/18 MDRO Source:: Stool Past Surgical History: Heart Catheterization, Heart Catheterization With Stent, Joint Replacement Additional Past Surgical History / Comment(s): left knee 11/2014. heart cath about [address] Eduardo, lithotripsy Past Anesthesia/Blood Transfusion Reactions: No Reported Reaction Date of Last Stent Placement:: 2006 Past Psychological History: Anxiety Smoking Status: Never smoker Past Alcohol Use History: None Reported Past Drug Use History: None Reported - Past Family History Mother History Unknown: Yes Family Medical History: No Reported History Additional Family Medical History / Comment(s): never went to doctors Father History Unknown: Yes Family Medical History: No Reported History Additional Family Medical History / Comment(s): ETOH use, unknown hx General Exam Limitations: no limitations General appearance: alert, in no apparent distress Head exam: Present: normocephalic Eye exam: Present: normal appearance, PERRL ENT exam: Present: normal oropharynx Neck exam: Present: normal inspection Respiratory exam: Present: normal lung sounds bilaterally Cardiovascular Exam: Present: tachycardia, irregular rhythm GI/Abdominal exam: Present: soft. Absent: distended, tenderness Extremities exam: Present: normal inspection Neurological exam: Present: alert. Absent: motor sensory deficit Expanded Patient oriented to: Present: person. Absent: place, time Speech: Present: fluid speech Motor strength exam: RUE: 5, LUE: 5, RLE: 5, LLE: 5 Psychiatric exam: Present: normal affect, normal mood Skin exam: Present: normal color Course Vital Signs 11/29/19 11/29/19 11/29/19 17:01 17:09 17:15 Temperature 98.2 F 100.4 F H Pulse Rate 95 Pulse Rate [ 152 H [place] ] Respiratory 16 Rate Blood Pressure 96/83 O2 Sat by Pulse 94 L Oximetry - Reevaluation(s) Reevaluation #1: 11/29/19 17:47 Patient appears to have met sepsis criteria in our emergency department at 1730. Patient did receive 2 L fluid bolus prior to arrival and additional fluid was ordered. Patient needs to thousand 190 mL a stuffy a DL bodyweight of 73 kg 5 foot 9 male. Potassium will be rechecked. Blood cultures and lactic acid reordered. IV antibiotics ordered. Patient was placed on Cardizem for atrial fibrillation. Hemoglobin will be monitored. GI will placed on consult. Cardiology also placed on consult. EKG Findings - EKG Comments: EKG Findings:: A. fib with RVR, rate 145. QRS 76. QT 292. QTC 453. Left axis. Normal QRS. Nonspecific ST-T. Procedures - Sepsis Sepsis Focused Exam #1 Time Sepsis Criteria Met: 17:30 Sepsis Focused Exam Date: 11/29/19 Sepsis Focused Exam Time: 17:50 Sepsis Focused Exam Complete: Yes Vital Signs & RN Notes Reviewed: Yes Capillary Refill: < 2 Seconds: Fingers, Toes Peripheral Pulses: Normal: Radial (R), Radial (L) Skin Color: Normal for Patient Respiratory Exam: normal lung sounds Cardiovascular Exam: tachycardia Medical Decision Making - Medical Decision Making Case was discussed with Dr. cam, who will admit. Patient reevaluated and updated. - Lab Data Result diagrams: 11/29/19 17:12 Lab Results 11/29/19 Range/Units 17:12 WBC 12.3 H (3.8-10.6) k/uL RBC 4.64 (4.30-5.90) m/uL Hgb 11.3 L (13.0-17.5) gm/dL Hct 36.9 L (39.0-53.0) % MCV 79.5 L (80.0-100.0) fL MCH 24.4 L (25.0-35.0) pg MCHC 30.7 L (31.0-37.0) g/dL RDW 18.1 H (11.5-15.5) % Plt Count 162 (150-450) k/uL Neutrophils % 94 % Lymphocytes % 3 % Monocytes % 3 % Eosinophils % 0 % Basophils % 0 % Neutrophils # 11.5 H (1.3-7.7) k/uL Lymphocytes # 0.4 L (1.0-4.8) k/uL Monocytes # 0.3 (0-1.0) k/uL Eosinophils # 0.0 (0-0.7) k/uL Basophils # 0.0 (0-0.2) k/uL Hypochromasia Slight Anisocytosis Slight Microcytosis Slight Critical Care Time Critical Care Time: Yes Total Critical Care Time: 33 Disposition Clinical Impression: Acute GI bleeding, Atrial fibrillation with RVR, Pneumonia, Sepsis Disposition: ADMITTED IP TO THIS [facility] Condition: Serious Is patient prescribed a controlled substance at d/c from ED?: No Referrals: Preston Velasquez MD [Primary Care Provider] - 1-2 days Decision Time: 17:46
[2019-11-29] MEDS: DILTIAZEM 125 MG in SODIUM CHLORIDE 0.9% 100 ML IV SCH (17:48)
[2019-11-29] MEDS: SODIUM CHLORIDE 0.9% 1,000 ML IV SCH (17:49)
[2019-11-29 17:50] LABS: Albumin 2.7 g/dL (3.5-5.0); Calcium 7.8 mg/dL (8.4-10.2); Magnesium 2.2 mg/dL (1.6-2.3); Potassium 3.5 mmol/L (3.5-5.1); Total Bilirubin 0.8 mg/dL (0.2-1.3); Total Protein 5.1 g/dL (6.3-8.2)
[2019-11-29 18:07] LABS: INR 1.1 (<1.2); Partial Thromboplastin Time 31.3 sec (22.0-30.0); Prothrombin Time 11.1 sec (9.0-12.0)
--- NOTE | 2019-11-29 18:29 | XR ---
EXAMINATION TYPE: XR chest 2V DATE OF EXAM: 11/29/2019 COMPARISON: July 28, 2015 HISTORY: Dysrhythmia TECHNIQUE: FINDINGS: Heart is enlarged. There is some coarsening of the lung markings. There is no heart failure . There is no pleural effusion. Bony thorax is intact. There are chest leads. IMPRESSION: Mild cardiomegaly. Heart appears increased compared to old exam. No heart failure. Minima l fibrotic changes.
[2019-11-29 19:17] LABS: Glucose,Whole Blood 236 mg/dL (75-99)
[2019-11-29] MEDS: POTASSIUM CHLORIDE 10 MEQ in WATER FOR INJECTION 1 100ML.BAG IVPB SCH ×4 (20:04→23:34)
[2019-11-29] MEDS ORDERED: LORATADINE 10 MG TAB PO PRN (20:36)
[2019-11-29] MEDS ORDERED: NITROGLYCERIN SL TABS 0.4 MG TAB SUBLINGUAL PRN (20:36)
[2019-11-29] MEDS: tiZANidine 4 MG TAB PO SCH (21:23)
[2019-11-29] MEDS: SERTRALINE 100 MG TAB PO SCH (21:23)
[2019-11-29] MEDS: MESALAMINE 1,000 MG SUPP RECTAL SCH (21:23)
[2019-11-29] MEDS: ISOSORBIDE MONONITRATE ER 30 MG TAB.ER.24H PO SCH (21:25)
[2019-11-29] MEDS: ATORVASTATIN 10 MG TAB PO SCH (21:25)
[2019-11-29] MEDS: ALPRAZolam 0.25 MG TAB PO PRN (22:34)
[2019-11-29] MEDS: PIPERACILLIN-TAZOBACTAM 3.375 GM in SODIUM CHLORIDE 0.9% 100 ML IVPB SCH (23:37)
[2019-11-30 05:24] LABS: Anisocytosis Slight; Basophils % (A) 0 %; Eosinophils # (A) 0.1 k/uL (0-0.7); Eosinophils % (A) 1 %; HCT 35.3 % (39.0-53.0); HGB 10.9 gm/dL (13.0-17.5); Hypochromasia Moderate; Lymphocytes # (A) 0.6 k/uL (1.0-4.8); Lymphocytes % (A) 6 %; MCHC 30.9 g/dL (31.0-37.0); MCV 81.2 fL (80.0-100.0); Mean Platelet Volume 7.8; Microcytosis Slight; Monocytes # (A) 0.3 k/uL (0-1.0); Monocytes % (A) 3 %; Neutrophils # (A) 8.6 k/uL (1.3-7.7); Neutrophils % (A) 89 %; Platelet Count 147 k/uL (150-450); RBC 4.35 m/uL (4.30-5.90); RDW 18.5 % (11.5-15.5); WBC 9.7 k/uL (3.8-10.6)
[2019-11-30 05:33] LABS: Albumin 2.5 g/dL (3.5-5.0); Calcium 7.7 mg/dL (8.4-10.2); Potassium 3.5 mmol/L (3.5-5.1); Total Bilirubin 0.9 mg/dL (0.2-1.3)
[2019-11-30] MEDS: SODIUM CHLORIDE 0.9% 1,000 ML IV SCH ×3 (05:54→23:37)
[2019-11-30] MEDS: DILTIAZEM 125 MG in SODIUM CHLORIDE 0.9% 100 ML IV SCH (06:08)
[2019-11-30] MEDS: BALSALAZIDE DISODIUM 750 MG CAPSULE PO SCH ×4 (08:25→17:38)
--- NOTE | 2019-11-30 08:39 | XR ---
EXAMINATION TYPE: XR chest 1V DATE OF EXAM: 11/30/2019 COMPARISON: Prior exam 11/29/2019 HISTORY: Pneumonia TECHNIQUE: Single frontal view of the chest is obtained. FINDINGS: Lung volumes are low. Interstitium is increased. Mediastinal widening is noted. Heart is e nlarged. No evident pneumothorax or sizable effusion. There are overlying cardiac leads. Central vasc ularity is increased. IMPRESSION: Correlate for pulmonary venous hypertension and interstitial edema. Rotated exam. Indete rminate mediastinal widening, follow-up PA and lateral chest x-ray recommended, consider chest CT as indicated.
[2019-11-30] MEDS: PIPERACILLIN-TAZOBACTAM 3.375 GM in SODIUM CHLORIDE 0.9% 100 ML IVPB SCH ×3 (08:42→23:17)
[2019-11-30] MEDS: predniSONE 20 MG TAB PO SCH (08:42)
[2019-11-30] MEDS: ASPIRIN 81 MG PO SCH (08:43)
[2019-11-30] MEDS: tiZANidine 4 MG TAB PO SCH ×2 (08:49→20:58)
[2019-11-30] MEDS: LINAGLIPTIN 5 MG TABLET PO SCH (08:50)
[2019-11-30] MEDS: azaTHIOprine 50 MG TAB PO SCH (08:51)
[2019-11-30] MEDS: PANTOPRAZOLE 40 MG/10 ML VIAL IV SCH (08:51)
[2019-11-30] MEDS: METOPROLOL TARTRATE 25 MG TAB PO SCH ×3 (10:00→20:58)
[2019-11-30 12:02] LABS: Glucose,Whole Blood 157 mg/dL (75-99)
--- NOTE | 2019-11-30 12:38 | CONS ---
CONSULTATION CHIEF COMPLAINT: Atrial fibrillation with rapid ventricular rate. This is an 84-year-old gentleman with history of dementia, paroxysmal atrial fibrillation, coronary artery disease, dyslipidemia, and diabetes who presented to the hospital with atrial fibrillation with rapid ventricular rate. The patient has altered mental status and he is a poor historian. He had Hemoccult positive and was on anticoagulant that had been stopped. At the time of my evaluation this morning, he appears comfortable at rest remains in atrial fibrillation with poorly controlled ventricular rate. The patient is on intravenous Cardizem and Cardizem dose had been increased. PAST MEDICAL HISTORY: Significant for coronary artery disease, status post angioplasty, confusion, dyslipidemia, atrial fibrillation. MEDICATIONS: Medications include aspirin, Eliquis, Xanax, Zocor, Tylenol, Robaxin. ALLERGIES: No known drug allergies. REVIEW OF SYSTEMS: I am unable to obtain from the patient who appears somewhat confused. PAST MEDICAL HISTORY: Significant for Crohn disease. PAST SURGICAL HISTORY: Significant for coronary artery stents, joint replacement and knee replacement. PHYSICAL EXAMINATION: On exam, patient is comfortable at rest. Heart rate is 150 beats per minute, irregular. Blood pressure is 123/87. Respiratory rate is 18. There is no jugular venous distention. Carotid upstroke is normal. There is no bruit. Chest exam reveals good air entry bilaterally. Heart exam reveals first and second heart sounds, irregular rhythm and a systolic murmur at the left lower sternal border. Abdomen is soft. Examination of extremities reveals 1+ edema. Peripheral pulses are felt. LABS: Labs show that the hemoglobin is 10.9, platelet count is 147, potassium is 3.5, creatinine is 1. Three sets of troponins are elevated at 0.2 0.1 and 0.1. EKG shows atrial fibrillation with rapid ventricular rate. ASSESSMENT: 1. Persistent atrial fibrillation with rapid ventricular rate. 2. Troponin elevation secondary to supply demand mismatch. 3. History of coronary artery disease. PLAN: Continue the Cardizem, start metoprolol 25 t.i.d., obtain a 2D echo. Resume Eliquis once okay with GI. MMODL / IJN: [id number] /
--- NOTE | 2019-11-30 12:42 | P.CNPUL ---
History of Present Illness Consult date: 11/30/19 Requesting physician: Lio Breen Reason for consult: other (Atrial fibrillation with RVR) Chief complaint: Palpitations History of present illness: This is an 84-year-old white male with history of multiple medical problems including chronic atrial fibrillation, coronary artery disease, depression, generalized anxiety disorder, dementia, patient was transferred from [facility] emergency room to [facility] were in he initially presented with altered mental status. He was found to be in atrial fibrillation with RVR. Chest x-ray questioned pneumonia and his lactic acid was borderline elevated at 2.7. Patient was given fluid boluses, he was placed on Cardizem d rip after a Cardizem bolus, and he was transferred to the ICU. Patient was initially transferred to the ICU as an overflow, however considering his chest x-ray went on to develop pulmonary edema, and considering his atrial fibrillation is poorly controlled with Cardizem, the dose was increased, he is now on 10 mg per hour drip, hence I recommended full admission to the ICU rather than being overflow. The patient is an extremely poor historian, he is pleasantly confused. And cannot give any adequate history whatsoever. Looking back at previous admissions on this patient, back in February of 2018, he had history of coronary artery disease status post stenting of the distal circumflex in 2005. He had chronic diastolic heart failure. In November of 2018, patient was seen by gastroenterology for ulcerative colitis and lower GI bleeding. Underwent at the time EGD and colonoscopy with biopsies and polypectomy. At that time he was found to have active to moderate severe ulcerative colitis from the anal verge to 35 cm proximal to the colon. Review of Systems ROS unobtainable: due to mental status Past Medical History Past Medical History: Atrial Fibrillation, Heart Failure, GERD/Reflux, Hyperlipidemia, Hypertension, Osteoarthritis (OA), Skin Disorder Additional Past Medical History / Comment(s): Crohn's, vertigo History of Any Multi-Drug Resistant Organisms: C-DIFF Date of last positivie culture/infection: 03/14/18 MDRO Source:: Stool Past Surgical History: Heart Catheterization, Heart Catheterization With Stent, Joint Replacement Additional Past Surgical History / Comment(s): left knee 11/2014. heart cath about [address] Eduardo, lithotripsy Past Anesthesia/Blood Transfusion Reactions: No Reported Reaction Date of Last Stent Placement:: 2006 Past Psychological History: Anxiety Smoking Status: Never smoker Past Alcohol Use History: None Reported Past Drug Use History: None Reported - Past Family History Mother History Unknown: Yes Family Medical History: No Reported History Additional Family Medical History / Comment(s): never went to doctors Father History Unknown: Yes Family Medical History: No Reported History Additional Family Medical History / Comment(s): ETOH use, unknown hx Medications and Allergies Home Medications Medication Instructions Recorded Confirmed Type Aspirin 81 mg PO DAILY 04/29/15 11/29/19 History Isosorbide Mononitrate ER [Imdur] 30 mg PO HS 04/29/15 11/29/19 History Nitroglycerin Sl Tabs [Nitrostat] 0.4 mg SUBLINGUAL Q5M PRN 04/29/15 11/29/19 History Multivitamin [Men's Multi-Vitamin] 2 tab PO DAILY 07/28/15 11/29/19 History Simvastatin [Zocor] 20 mg PO HS 07/28/15 11/29/19 History ALPRAZolam [Xanax] 0.25 mg PO BID PRN 03/14/18 11/29/19 History Apixaban [Eliquis] 5 mg PO BID 03/14/18 11/29/19 History Ranitidine HCl [Zantac] 150 mg PO BID 03/14/18 11/29/19 History Acetaminophen [Tylenol] 1,000 mg PO DAILY PRN 11/29/18 11/29/19 History Sertraline HCl [Zoloft] 100 mg PO HS 11/29/18 11/29/19 History Balsalazide Disodium 2,250 mg PO AC-TID 11/29/19 11/29/19 History Fexofenadine HCl [Lisa Allergy] 180 mg PO DAILY PRN 11/29/19 11/29/19 History Furosemide [Lasix] 40 mg PO DAILY 11/29/19 11/29/19 History Mesalamine [Canasa] 1,000 mg RECTAL HS 11/29/19 11/29/19 History azaTHIOprine [Imuran] 100 mg PO DAILY 11/29/19 11/29/19 History predniSONE 20 mg PO DAILY 11/29/19 11/29/19 History sitaGLIPtin PHOSPHATE [Januvia] 50 mg PO DAILY 11/29/19 11/29/19 History tiZANidine [Zanaflex] 2 mg PO BID 11/29/19 11/29/19 History Allergies Allergy/AdvReac Type Severity Reaction Status Date / Time No Known Allergies Allergy Verified 11/29/19 19:31 Physical Exam Vitals: Vital Signs Temp Pulse Pulse Resp BP Pulse Ox 11/30/19 11:00 151 H 21 115/83 92 L 11/30/19 10:00 141 H 20 123/87 93 L 11/30/19 09:00 135 H 18 121/89 95 11/30/19 08:00 98.1 F 140 H 29 H 122/110 98 11/30/19 07:30 146 H 15 98/72 98 11/30/19 07:00 124 H 19 94/70 11/30/19 06:30 130 H 27 H 100/68 11/30/19 06:00 131 H 62 H 98/70 97 11/30/19 05:30 141 H 24 79/58 97 11/30/19 05:00 128 H 30 H 91/71 11/30/19 04:30 129 H 26 H 100/62 11/30/19 04:00 97.5 F L 123 H 20 110/77 94 L 11/30/19 03:40 116 H 25 H 110/77 95 11/30/19 03:20 126 H 29 H 98/71 94 L 11/30/19 03:00 134 H 22 99/78 95 11/30/19 02:45 117 H 19 99/78 93 L 11/30/19 02:30 130 H 11 L 119/90 95 11/30/19 02:15 123 H 21 119/90 96 11/30/19 02:00 133 H 18 88/54 89 L 11/30/19 01:45 131 H 30 H 88/54 94 L 11/30/19 01:30 130 H 21 87/42 88 L 11/30/19 01:15 135 H 10 L 87/42 96 11/30/19 01:00 125 H 15 97/60 95 11/30/19 00:45 116 H 24 97/60 85 L 11/30/19 00:30 137 H 29 H 94/77 95 11/30/19 00:27 115 H 28 H 94/77 95 11/30/19 00:15 125 H 31 H 94/77 93 L 11/30/19 00:00 98.6 F 138 H 17 84/57 94 L 11/29/19 23:45 130 H 23 84/57 95 11/29/19 23:30 131 H 24 96/48 93 L 11/29/19 23:15 107 H 11 L 96/48 93 L 11/29/19 23:00 15 11/29/19 22:45 123 H 19 93/83 96 11/29/19 22:30 125 H 19 109/62 93 L 11/29/19 22:15 152 H 17 109/62 96 11/29/19 22:00 129 H 20 91/37 97 11/29/19 21:45 141 H 28 H 105/93 93 L 11/29/19 21:30 140 H 10 L 100/73 95 11/29/19 21:20 95 11/29/19 21:15 142 H 14 90/73 94 L 11/29/19 21:00 135 H 17 94/77 94 L 11/29/19 20:45 144 H 3 L 86/71 94 L 11/29/19 20:30 152 H 22 94/59 92 L 11/29/19 20:15 141 H 27 H 96/80 94 L 11/29/19 20:00 98.9 F 142 H 21 82/69 92 L 11/29/19 19:45 149 H 29 H 91/72 93 L 11/29/19 19:30 151 H 26 H 102/66 92 L 11/29/19 19:15 99.7 F H 135 H 28 H 113/68 93 L 11/29/19 19:00 160 H 26 H 93 L 11/29/19 18:15 151 H 18 101/84 98 11/29/19 18:00 154 H 103/77 95 11/29/19 17:45 147 H 97/74 98 11/29/19 17:30 152 H 103/93 95 11/29/19 17:15 152 H 152 H 96/83 96 11/29/19 17:09 100.4 F H 11/29/19 17:01 98.2 F 95 16 96/83 94 L Intake and Output 11/29/19 11/30/19 11/30/19 22:59 06:59 14:59 Intake Total 840 1351.667 440 Output Total 470 Balance 840 1351.667 -30 Intake: IV 840 1240 290 Levofloxacin 750Mg-D5w 150 Pmx 750 mg In Dextrose/ Water 1 150ml.bag @ 100 mls/hr IVPB ONCE [facility] Rx#: [id number] Potassium Chloride 10 meq 300 200 In Water For Injection 1 100ml.bag @ 100 mls/hr IVPB Q1HR [facility] Rx#: [id number] Sodium Chloride 0.9% 1, 390 1040 290 000 ml @ 10 mls/hr IV . Q24H [facility] Rx#:[id number] Intake, IV Titration 61.667 Amount Diltiazem 125 mg In 61.667 Sodium Chloride 0.9% 100 ml @ 7.5 MG/HR 7.5 mls/hr IV .[id number] [facility] Rx#: [id number] Oral 50 150 Output: Urine 470 Other: # Voids 1 Weight 104.326 kg 93.7 kg 93.7 kg Physical Exam: Revealed an 84-year-old white male in no distress, pleasantly confused, on room air. Head: Atraumatic, normocephalic. HEENT:[Neck is supple.] [No neck masses.] [No thyromegaly.] [No JVD.] PERRLA, EOMI, no icterus, moist mucous membranes. Chest: [Symmetrical chest expansion, crackles at the bases no rhonchi and no wheezes..] Cardiac Exam: [Irregular irregular rhythm. Normal S1 and S2, no S3 gallop, 2/6 systolic murmur thought the precordium. Abdomen: [Obese, Soft, nontender, no megaly, no rebound, no guarding, normal bowel sounds.] Extremities: [No clubbing, trace of bipedal edema, no cyanosis.] Good pulses bilaterally. Neurological Exam: Confused, oriented 1. Psychiatric: Pleasant mood, pleasant affect, questionable mental status including judgment and insight. Skin: No rashes. Results - Laboratory Findings CBC and BMP: 11/30/19 04:37 11/30/19 04:37 PT/INR, D-dimer PT 11.1 sec (9.0-12.0) 11/29/19 17:12 INR 1.1 (<1.2) 11/29/19 17:12 Abnormal lab findings: Abnormal Labs 11/29/19 11/29/19 11/29/19 17:12 17:12 17:12 WBC 12.3 H Hgb 11.3 L Hct 36.9 L MCV 79.5 L MCH 24.4 L MCHC 30.7 L RDW 18.1 H Plt Count Neutrophils # 11.5 H Lymphocytes # 0.4 L APTT 31.3 H Chloride Carbon Dioxide BUN 26 H Glucose 212 H POC Glucose (mg/dL) Calcium 7.8 L Troponin I Total Protein 5.1 L Albumin 2.7 L 11/29/19 11/29/19 11/30/19 17:12 18:56 00:03 WBC Hgb Hct MCV MCH MCHC RDW Plt Count Neutrophils # Lymphocytes # APTT Chloride Carbon Dioxide BUN Glucose POC Glucose (mg/dL) 236 H Calcium Troponin I 0.206 H* 0.158 H* Total Protein Albumin 11/30/19 11/30/19 11/30/19 04:37 04:37 04:37 WBC Hgb 10.9 L Hct 35.3 L MCV MCH MCHC 30.9 L RDW 18.5 H Plt Count 147 L Neutrophils # 8.6 H Lymphocytes # 0.6 L APTT Chloride 110 H Carbon Dioxide 19 L BUN 25 H Glucose 112 H POC Glucose (mg/dL) Calcium 7.7 L Troponin I 0.134 H* Total Protein 5.0 L Albumin 2.5 L 11/30/19 11:59 WBC Hgb Hct MCV MCH MCHC RDW Plt Count Neutrophils # Lymphocytes # APTT Chloride Carbon Dioxide BUN Glucose POC Glucose (mg/dL) 157 H Calcium Troponin I Total Protein Albumin - Diagnostic Findings Chest x-ray: image reviewed (Admission chest x-ray showed mostly cardiomegaly and minimal fibrotic changes at the bases. Follow-up chest x-ray showed evidence of interstitial edema) Assessment and Plan Assessment: Impression: Atrial fibrillation with RVR Acute congestive heart failure secondary to atrial fibrillation with RVR, not clear whether this is systolic or diastolic failure, echocardiogram is pending and cardiology consultation is pending. I believe the CHF is mostly secondary to fluid overload, patient was given significant amount of fluids in the ER because of slightly elevated lactic acid. Hence his IV fluid will be cut down to KVO. May or may not use diuretics. History of ulcerative colitis and history of lower GI bleeding. History of coronary artery disease and previous stent placement. Chronic atrial fibrillation maintained on Eliquis. History of depression History of dementia Benign essential hypertension History of C. difficile colitis. Recommendation: Continue Cardizem. Cut down her IV fluid to KVO. Continue empiric antibiotics, check pro-calcitonin level. Consider diuresis if the patient develops worsening pulmonary status. Cardiology to evaluate regarding his cardiac issues GI to evaluate regarding his ulcerative colitis and history of lower GI bleeding. We will continue to follow, patient will be a full admission to the ICU. Prognosis is definitely guarded. CODE STATUS according to his daughter is DO NOT RESUSCITATE. Time with Patient: Greater than 30
[2019-11-30] MEDS: ALPRAZolam 0.25 MG TAB PO PRN (13:56)
[2019-11-30] MEDS: LEVOFLOXACIN 750MG-D5W PMX 750 MG in DEXTROSE/WATER 1 150ML.BAG IVPB SCH (17:45)
--- NOTE | 2019-11-30 20:14 | P.HPIM ---
History of Present Illness H&P Date: 11/30/19 Chief Complaint: A. fib with rapid ventricular rate History of presenting complaint: This is a 84-year-old patient was transferred here from [facility]. At the other hospital patient is found to be in atrial fibrillation with rapid ventricular rate. Was put on a Cardizem drip. There is a question about pneumonia, guaiac-positive stool and because of these multiple issues patient was initially admitted to the ICU. Patient himself is a poor historian. Chronic stable medical conditions include ulcerative colitis, congestive heart failure from gastric dysfunction EF 55%, GERD, hypertension, hyperlipidemia, primary osteoarthritis, coronary artery disease with prior history of stent, he dysfunction uses a walker. Patient admitted here a year ago and this history is obtained from the same. Review of systems: GEN.: Tired EYES: None HEENT: Decreased hearing NECK: None RESPIRATORY: Some shortness of breath CARDIOVASCULAR: None GASTROINTESTINAL: None GENITOURINARY: None MUSCULOSKELETAL: Some joint pains LYMPHATICS: None HEMATOLOGICAL: None PSYCHIATRY: With confusion NEUROLOGICAL: None Past medical history to include: Ulcerative colitis, atrial fibrillation, congestive heart failure EF 45%, GERD, hypertension, hyperlipidemia, primary osteoarthritis, coronary artery disease with stent, gait dysfunction uses a walker Social history: Does not smoke or drink alcohol. Lives at [facility] home with 24-hour care. Does use a walker at all times. Family history: Patient cannot tell Physical examination: VITAL SIGNS: 100.4, 152, 96/83, and 96% upon presentation GENERAL: [BMI 30.5, laying in bed a bit tired. EYES: Pupils equal. Conjunctiva normal. HEENT: External appearance of nose and ears normal, oral cavity grossly normal. NECK: JVD unable to assess, masses not palpable. HEART: Heart sounds irregular no edema. LUNGS: Respiratory rate normal; decreased breath sounds. ABDOMEN: Soft, nontender, liver spleen not palpable, no masses palpable. PSYCH: Patient may answer occasional questionl. NEUROLOGICAL: Cranial nerves grossly intact; no facial asymmetry, power and sensation grossly intact. LYMPHATICS: No lymph nodes palpable in the axilla and neck INVESTIGATIONS, reviewed in the clinical context: White count 12.3 hemoglobin 11.3 platelets 162 potassium 3.5 bun 26 creatinine 1.25 Troponin I 0.0-6 albumin 2.7 EKG tracing personally reviewed by me-atrial flutter fibrillation with a rapid ventricular rate -Chest x-ray film personally reviewed by me-possible cardiomegaly with some venous prominence Assessment: -Persistent atrial fibrillation flutter with a rapid ventricular rate, POA -chronic congestive heart failure from systolic dysfunction EF 45% -GERD -Essential hypertension -Hyperlipidemia -Primary osteoarthritis -Coronary artery disease with stent -Chronic gait dysfunction uses a walker -Chronic ulcerative colitis -Questionable pneumonia, -Major cognitive impairment from possibly late onset Alzheimer's dementia Plan: Home medications resumed. Patient's been IV Cardizem drip. Consultations made to cardiology and pulmonary. Admitted to ICU. For now stopped Levaquin continue IV Zosyn. Add Lovenox for DVT prophylaxis. Prognosis guarded. Past Medical History Past Medical History: Atrial Fibrillation, Heart Failure, GERD/Reflux, Hyperlipidemia, Hypertension, Osteoarthritis (OA), Skin Disorder Additional Past Medical History / Comment(s): Crohn's, vertigo History of Any Multi-Drug Resistant Organisms: C-DIFF Date of last positivie culture/infection: 03/14/18 MDRO Source:: Stool Past Surgical History: Heart Catheterization, Heart Catheterization With Stent, Joint Replacement Additional Past Surgical History / Comment(s): left knee 11/2014. heart cath about [address] Eduardo, lithotripsy Past Anesthesia/Blood Transfusion Reactions: No Reported Reaction Date of Last Stent Placement:: 2006 Past Psychological History: Anxiety Smoking Status: Never smoker Past Alcohol Use History: None Reported Past Drug Use History: None Reported - Past Family History Mother History Unknown: Yes Family Medical History: No Reported History Additional Family Medical History / Comment(s): never went to doctors Father History Unknown: Yes Family Medical History: No Reported History Additional Family Medical History / Comment(s): ETOH use, unknown hx Medications and Allergies Home Medications Medication Instructions Recorded Confirmed Type Aspirin 81 mg PO DAILY 04/29/15 11/29/19 History Isosorbide Mononitrate ER [Imdur] 30 mg PO HS 04/29/15 11/29/19 History Nitroglycerin Sl Tabs [Nitrostat] 0.4 mg SUBLINGUAL Q5M PRN 04/29/15 11/29/19 History Multivitamin [Men's Multi-Vitamin] 2 tab PO DAILY 07/28/15 11/29/19 History Simvastatin [Zocor] 20 mg PO HS 07/28/15 11/29/19 History ALPRAZolam [Xanax] 0.25 mg PO BID PRN 03/14/18 11/29/19 History Apixaban [Eliquis] 5 mg PO BID 03/14/18 11/29/19 History Ranitidine HCl [Zantac] 150 mg PO BID 03/14/18 11/29/19 History Acetaminophen [Tylenol] 1,000 mg PO DAILY PRN 11/29/18 11/29/19 History Sertraline HCl [Zoloft] 100 mg PO HS 11/29/18 11/29/19 History Balsalazide Disodium 2,250 mg PO AC-TID 11/29/19 11/29/19 History Fexofenadine HCl [Lisa Allergy] 180 mg PO DAILY PRN 11/29/19 11/29/19 History Furosemide [Lasix] 40 mg PO DAILY 11/29/19 11/29/19 History Mesalamine [Canasa] 1,000 mg RECTAL HS 11/29/19 11/29/19 History azaTHIOprine [Imuran] 100 mg PO DAILY 11/29/19 11/29/19 History predniSONE 20 mg PO DAILY 11/29/19 11/29/19 History sitaGLIPtin PHOSPHATE [Januvia] 50 mg PO DAILY 11/29/19 11/29/19 History tiZANidine [Zanaflex] 2 mg PO BID 11/29/19 11/29/19 History Allergies Allergy/AdvReac Type Severity Reaction Status Date / Time No Known Allergies Allergy Verified 11/29/19 19:31 Physical Exam Vitals: Vital Signs Temp Pulse Pulse Resp BP Pulse Ox 11/30/19 11:00 151 H 21 115/83 92 L 11/30/19 10:00 141 H 20 123/87 93 L 11/30/19 09:00 135 H 18 121/89 95 11/30/19 08:00 98.1 F 140 H 29 H 122/110 98 11/30/19 07:30 146 H 15 98/72 98 11/30/19 07:00 124 H 19 94/70 11/30/19 06:30 130 H 27 H 100/68 11/30/19 06:00 131 H 62 H 98/70 97 11/30/19 05:30 141 H 24 79/58 97 11/30/19 05:00 128 H 30 H 91/71 11/30/19 04:30 129 H 26 H 100/62 11/30/19 04:00 97.5 F L 123 H 20 110/77 94 L 11/30/19 03:40 116 H 25 H 110/77 95 11/30/19 03:20 126 H 29 H 98/71 94 L 11/30/19 03:00 134 H 22 99/78 95 11/30/19 02:45 117 H 19 99/78 93 L 11/30/19 02:30 130 H 11 L 119/90 95 11/30/19 02:15 123 H 21 119/90 96 11/30/19 02:00 133 H 18 88/54 89 L 11/30/19 01:45 131 H 30 H 88/54 94 L 11/30/19 01:30 130 H 21 87/42 88 L 11/30/19 01:15 135 H 10 L 87/42 96 11/30/19 01:00 125 H 15 97/60 95 11/30/19 00:45 116 H 24 97/60 85 L 11/30/19 00:30 137 H 29 H 94/77 95 11/30/19 00:27 115 H 28 H 94/77 95 11/30/19 00:15 125 H 31 H 94/77 93 L 11/30/19 00:00 98.6 F 138 H 17 84/57 94 L 11/29/19 23:45 130 H 23 84/57 95 11/29/19 23:30 131 H 24 96/48 93 L 11/29/19 23:15 107 H 11 L 96/48 93 L 11/29/19 23:00 15 11/29/19 22:45 123 H 19 93/83 96 11/29/19 22:30 125 H 19 109/62 93 L 11/29/19 22:15 152 H 17 109/62 96 11/29/19 22:00 129 H 20 91/37 97 11/29/19 21:45 141 H 28 H 105/93 93 L 11/29/19 21:30 140 H 10 L 100/73 95 11/29/19 21:20 95 11/29/19 21:15 142 H 14 90/73 94 L 11/29/19 21:00 135 H 17 94/77 94 L 11/29/19 20:45 144 H 3 L 86/71 94 L 11/29/19 20:30 152 H 22 94/59 92 L 11/29/19 20:15 141 H 27 H 96/80 94 L 11/29/19 20:00 98.9 F 142 H 21 82/69 92 L 11/29/19 19:45 149 H 29 H 91/72 93 L 11/29/19 19:30 151 H 26 H 102/66 92 L 11/29/19 19:15 99.7 F H 135 H 28 H 113/68 93 L 11/29/19 19:00 160 H 26 H 93 L 11/29/19 18:15 151 H 18 101/84 98 11/29/19 18:00 154 H 103/77 95 11/29/19 17:45 147 H 97/74 98 11/29/19 17:30 152 H 103/93 95 11/29/19 17:15 152 H 152 H 96/83 96 11/29/19 17:09 100.4 F H 11/29/19 17:01 98.2 F 95 16 96/83 94 L Intake and Output 11/29/19 11/30/19 11/30/19 22:59 06:59 14:59 Intake Total 840 1351.667 260 Balance 840 1351.667 260 Intake: IV 840 1240 260 Levofloxacin 750Mg-D5w 150 Pmx 750 mg In Dextrose/ Water 1 150ml.bag @ 100 mls/hr IVPB ONCE STA Rx#: [id number] Potassium Chloride 10 meq 300 200 In Water For Injection 1 100ml.bag @ 100 mls/hr IVPB Q1HR [facility] Rx#: [id number] Sodium Chloride 0.9% 1, 390 1040 260 000 ml @ 130 mls/hr IV . [id number] [facility] Rx#:[id number] Intake, IV Titration 61.667 Amount Diltiazem 125 mg In 61.667 Sodium Chloride 0.9% 100 ml @ 7.5 MG/HR 7.5 mls/hr IV .[id number] [facility] Rx#: [id number] Oral 50 Other: # Voids 1 Weight 104.326 kg 93.7 kg 93.7 kg Results CBC & Chem 7: 11/30/19 04:37 11/30/19 04:37 Labs: Abnormal Lab Results - Last 24 Hours (Table) 11/29/19 11/29/19 11/29/19 Range/Units 17:12 17:12 17:12 WBC 12.3 H (3.8-10.6) k/uL Hgb 11.3 L (13.0-17.5) gm/dL Hct 36.9 L (39.0-53.0) % MCV 79.5 L (80.0-100.0) fL MCH 24.4 L (25.0-35.0) pg MCHC 30.7 L (31.0-37.0) g/dL RDW 18.1 H (11.5-15.5) % Plt Count (150-450) k/uL Neutrophils # 11.5 H (1.3-7.7) k/uL Lymphocytes # 0.4 L (1.0-4.8) k/uL APTT 31.3 H (22.0-30.0) sec Chloride (98-107) mmol/L Carbon Dioxide (22-30) mmol/L BUN 26 H (9-20) mg/dL Glucose 212 H (74-99) mg/dL POC Glucose (mg/dL) (75-99) mg/dL Calcium 7.8 L (8.4-10.2) mg/dL Troponin I (0.000-0.034) ng/mL Total Protein 5.1 L (6.3-8.2) g/dL Albumin 2.7 L (3.5-5.0) g/dL 11/29/19 11/29/19 11/30/19 Range/Units 17:12 18:56 00:03 WBC (3.8-10.6) k/uL Hgb (13.0-17.5) gm/dL Hct (39.0-53.0) % MCV (80.0-100.0) fL MCH (25.0-35.0) pg MCHC (31.0-37.0) g/dL RDW (11.5-15.5) % Plt Count (150-450) k/uL Neutrophils # (1.3-7.7) k/uL Lymphocytes # (1.0-4.8) k/uL APTT (22.0-30.0) sec Chloride (98-107) mmol/L Carbon Dioxide (22-30) mmol/L BUN (9-20) mg/dL Glucose (74-99) mg/dL POC Glucose (mg/dL) 236 H (75-99) mg/dL Calcium (8.4-10.2) mg/dL Troponin I 0.206 H* 0.158 H* (0.000-0.034) ng/mL Total Protein (6.3-8.2) g/dL Albumin (3.5-5.0) g/dL 11/30/19 11/30/19 11/30/19 Range/Units 04:37 04:37 04:37 WBC (3.8-10.6) k/uL Hgb 10.9 L (13.0-17.5) gm/dL Hct 35.3 L (39.0-53.0) % MCV (80.0-100.0) fL MCH (25.0-35.0) pg MCHC 30.9 L (31.0-37.0) g/dL RDW 18.5 H (11.5-15.5) % Plt Count 147 L (150-450) k/uL Neutrophils # 8.6 H (1.3-7.7) k/uL Lymphocytes # 0.6 L (1.0-4.8) k/uL APTT (22.0-30.0) sec Chloride 110 H (98-107) mmol/L Carbon Dioxide 19 L (22-30) mmol/L BUN 25 H (9-20) mg/dL Glucose 112 H (74-99) mg/dL POC Glucose (mg/dL) (75-99) mg/dL Calcium 7.7 L (8.4-10.2) mg/dL Troponin I 0.134 H* (0.000-0.034) ng/mL Total Protein 5.0 L (6.3-8.2) g/dL Albumin 2.5 L (3.5-5.0) g/dL Thrombosis Risk Factor Assmnt - Choose All That Apply Any of the Below Risk Factors Present?: No Each Risk Factor Represents 3 Points: Age 75 years or older Thrombosis Risk Factor Assessment Total Risk Factor Score: 3 Thrombosis Risk Factor Assessment Level: Moderate Risk
--- NOTE | 2019-11-30 20:35 | CONS ---
CONSULTATION DATE OF SERVICE: November 30, 2019. REQUESTING PHYSICIAN: Dr. Preston Velasquez and Dr. Paul. REASON FOR CONSULTATION: History of ulcerative colitis. HISTORY OF PRESENT ILLNESS: The patient is an 84-year-old pleasant white male with history of atrial fibrillation on Eliquis, coronary artery disease, dementia, was transferred from [facility] because he presented with altered mental status. Apparently, in the ER, he was noted to have atrial fibrillation with rapid ventricular heart rate and he was noted to have some chest x-ray showed possible pneumonia with elevated lactic acid and hence he was transferred to [facility] and is presently in the ICU. Patient known to me from prior office visit, he has longstanding history of ulcerative colitis who has been steroid dependent for the last 1 year. He remains on prednisone 20 mg daily. About 2 months ago, he was started on azathioprine 100 mg daily and since then the diarrhea is gradually improving. He has been having about 2 or 3 bowel movements daily. No blood or mucus in the stool. The patient is somewhat confused. Most of the history was obtained from the patient's chart and the nursing staff. His last colonoscopy in November of 2018 showed left-sided colitis. PAST MEDICAL HISTORY: Significant for atrial fibrillation, congestive heart failure, GERD, hypertension, hyperlipidemia, anxiety, history of ulcerative colitis and dementia. MEDICATIONS: At home include aspirin, Isordil, Nitroglycerin, multivitamin, Zocor, Xanax, Eliquis, Zantac, Tylenol, Zoloft, balsalazide, Imuran, prednisone 20 mg daily, Januvia and Zanaflex. ALLERGIES: None. SOCIAL HISTORY: No smoking or alcohol use. FAMILY HISTORY: Mother history of coronary artery disease. Father ETOH. REVIEW OF SYSTEMS: Review of systems could not be obtained, as patient is extremely confused. PHYSICAL EXAMINATION: Appears comfortable, no apparent distress. VITAL SIGNS: Stable. Blood pressure is 113/68, pulse rate of 118, temperature 98. HEENT examination unremarkable. Conjunctivae pink. Sclerae anicteric. Oral cavity no lesions. Neck: No JVD or lymph node enlargement. Chest was clear to auscultation. HEART: Regular rate and rhythm. ABDOMEN: Soft. Bowel sounds are positive. No organomegaly. EXTREMITIES: No pedal edema. SKIN: No rashes. NEURO: He is alert and oriented x3. No focal deficits. LABS: Done from today show WBC is 9.7, hemoglobin 10.9, platelets 147. Basic metabolic panel is within normal limits. Troponin was 0.15. C difficile is still pending. IMPRESSION: 1. Atrial fibrillation with rapid ventricular heart rate, presently being managed in the intensive care unit and on IV Cardizem drip. 2. History of ulcerative colitis, has been steroid dependent for the last 1 year. Presently on prednisone 20 mg daily and Imuran 100 mg daily that was started in October of this year. The patient symptoms are gradually improving. Clinically he does not have any active colitis. 3. History of congestive heart failure. 4. Mild dementia. 5. Altered mental status. RECOMMENDATIONS: 1. Resume Eliquis. 2. Await C diff stool studies. 3. Continue with prednisone 20 mg daily and azathioprine 100 mg daily. 4. We will monitor him closely. Thank you for this consultation. MMSKIPL / GUDELIA: [id number] /
[2019-11-30 20:42] LABS: Glucose,Whole Blood 269 mg/dL (75-99)
[2019-11-30] MEDS: SERTRALINE 100 MG TAB PO SCH (20:58)
[2019-11-30] MEDS: APIXABAN 5 MG TAB PO SCH (20:58)
[2019-11-30] MEDS: ATORVASTATIN 10 MG TAB PO SCH (20:58)
[2019-11-30] MEDS: ISOSORBIDE MONONITRATE ER 30 MG TAB.ER.24H PO SCH (20:58)
[2019-11-30] MEDS: MESALAMINE 1,000 MG SUPP RECTAL SCH (20:59)
[2019-11-30] MEDS ORDERED: FUROSEMIDE 10 MG/ML 10 ML VIAL IV STA (23:30)
[2019-12-01] MEDS ORDERED: METOPROLOL TARTRATE 50 MG TAB PO STA (05:04)
[2019-12-01 05:25] LABS: Anisocytosis Slight; Basophils % (A) 0 %; Eosinophils # (A) 0.1 k/uL (0-0.7); Eosinophils % (A) 0 %; HCT 37.6 % (39.0-53.0); HGB 11.5 gm/dL (13.0-17.5); Hypochromasia Marked; Lymphocytes # (A) 0.7 k/uL (1.0-4.8); Lymphocytes % (A) 4 %; MCH 24.9 pg (25.0-35.0); MCHC 30.7 g/dL (31.0-37.0); MCV 81.2 fL (80.0-100.0); Mean Platelet Volume 7.7; Microcytosis Slight; Monocytes # (A) 0.4 k/uL (0-1.0); Monocytes % (A) 2 %; Neutrophils # (A) 14.9 k/uL (1.3-7.7); Neutrophils % (A) 92 %; Platelet Count 250 k/uL (150-450); RBC 4.63 m/uL (4.30-5.90); RDW 18.4 % (11.5-15.5); WBC 16.2 k/uL (3.8-10.6)
[2019-12-01 05:48] LABS: Albumin 2.8 g/dL (3.5-5.0); Calcium 8.5 mg/dL (8.4-10.2); Total Bilirubin 0.9 mg/dL (0.2-1.3); Total Protein 5.2 g/dL (6.3-8.2)
[2019-12-01 07:33] LABS: Glucose,Whole Blood 184 mg/dL (75-99)
--- NOTE | 2019-12-01 07:48 | XR ---
EXAMINATION TYPE: XR chest 1V DATE OF EXAM: 12/01/2019 COMPARISON: 11/30/2019 HISTORY: Shortness of breath FINDINGS: There are bilateral pleural effusions with cardiomegaly and bibasilar infiltrate. There is a diffuse interstitial pattern. Arthropathy shoulders. IMPRESSION: 1. Stable x-ray with diffuse pleural-parenchymal changes correlate for diffuse pneumonia versus pulmo nary edema.
[2019-12-01] MEDS ORDERED: FUROSEMIDE 10 MG/ML 4 ML VIAL IV SCH (08:30)
[2019-12-01] MEDS ORDERED: DEXTROSE 5% IN WATER 100 ML with AMIODARONE 150 MG IV ONE (09:00)
[2019-12-01] MEDS ORDERED: AMIODARONE 360 MG in DEXTROSE 5% IN WATER 200 ML IV ONE ×2 (09:10)
[2019-12-01] MEDS ORDERED: LORazepam 2 MG/ML INJ IV PRN (10:09)
--- NOTE | 2019-12-01 10:15 | PN ---
PROGRESS NOTE This is an 84-year-old gentleman who was admitted with dementia, confusion, coronary artery disease, status post prior angioplasty, paroxysmal atrial fibrillation and dyslipidemia who was admitted to the hospital with an episode of atrial fibrillation with rapid ventricular rate. He also had a Hemoccult-positive stool and his anticoagulation had been stopped. Last night he developed progressively worsening shortness of breath and this morning he is in acute pulmonary edema. He had mild troponin elevation on his initial presentation. His physical exam is consistent with a diagnosis of pulmonary edema. Chest x-ray shows pulmonary edema, also. On exam this morning, heart rate is 130 beats per minute. Blood pressure is 98/68, respiratory rate was 40 per minute. He was in [id number] respiratory distress. Patient received IV Lasix and subsequently had been on BiPAP. He is making improvement in his respiratory status. PHYSICAL EXAM: There is jugular venous distention. Chest exam reveals diffuse crackles. Heart exam reveals first and second heart sounds, irregular rhythm and a systolic murmur at the apex. Abdomen is soft. Exam of extremities reveal mild edema, peripheral pulses are felt. LABS: Show that the hemoglobin is 11.5. White cell count is 16. Potassium is 4, BUN is 24, creatinine is 1.4. BNP is elevated at 15,700. Troponin was 0.1. ASSESSMENT: 1. Persistent atrial fibrillation with rapid ventricular rate. 2. Acute pulmonary edema. 3. Non ST-segment elevation myocardial infarction. 4. History of ulcerative colitis. PLAN: The patient's Eliquis have been resumed. I am going to start the patient on amiodarone. Continue the Cardizem. Continue the metoprolol. I will obtain another set of troponin. I will review the echocardiogram. Continue the Lasix. If necessary, start him on Lasix drip. MMODL / IJN: [id number] /
[2019-12-01] MEDS ORDERED: HALOPERIDOL LACTATE 5 MG/ML 1 ML VIAL ONE (10:51)
[2019-12-01] MEDS: HYDROmorphone 1 MG/ML 1 ML SYRINGE IVP PRN (10:59)
[2019-12-01] MEDS: DILTIAZEM 125 MG in SODIUM CHLORIDE 0.9% 100 ML IV SCH (11:01)
[2019-12-01] MEDS: BALSALAZIDE DISODIUM 750 MG CAPSULE PO SCH ×3 (11:14→17:50)
[2019-12-01] MEDS: METOPROLOL TARTRATE 50 MG TAB PO SCH ×2 (11:15→22:59)
[2019-12-01] MEDS: tiZANidine 4 MG TAB PO SCH ×2 (11:15→23:00)
[2019-12-01] MEDS: ASPIRIN 81 MG PO SCH (11:15)
[2019-12-01] MEDS: APIXABAN 5 MG TAB PO SCH ×2 (11:15→22:59)
[2019-12-01] MEDS: azaTHIOprine 50 MG TAB PO SCH (11:16)
[2019-12-01] MEDS: LINAGLIPTIN 5 MG TABLET PO SCH (11:17)
[2019-12-01] MEDS: predniSONE 20 MG TAB PO SCH (11:17)
[2019-12-01] MEDS: FUROSEMIDE 100 MG in SODIUM CHLORIDE 0.9% 90 ML IV SCH ×2 (11:21→18:51)
[2019-12-01] MEDS: PIPERACILLIN-TAZOBACTAM 3.375 GM in SODIUM CHLORIDE 0.9% 100 ML IVPB SCH ×2 (11:21→15:45)
[2019-12-01] MEDS: PANTOPRAZOLE 40 MG/10 ML VIAL IV SCH (11:23)
[2019-12-01 12:00] LABS: Glucose,Whole Blood 252 mg/dL (75-99)
--- NOTE | 2019-12-01 12:39 | CDI ---
Documentation Clarification Form Date: 12/01/2019 12:06:10 PM From: Krystin Elliott RN CCDS Admit Date: 11/29/2019 05:38:00 PM Patient Name: Nathaniel Rodriguez Visit Number: [id number] Discharge Date: ATTENTION: The Clinical Documentation Specialists (CDI) and [facility] Coding Staff appreciate your assistance in clarifying documentation. Please respond to the clarification below the line at the bottom and electronically sign. The CDI & [facility] Coding staff will review the response and follow-up if needed. Please note: Queries are made part of the Legal Health Record. If you have any questions, please contact the author of this message via ITS. Dr. Lio Breen Altered Mental Status was documented in the ED Note 11/29; Cardiology consult 11/30; Critical care consult 11/30 and in Gastrointestinal consult 11/30 History/Risk Factors: 84-year-old male presents to [facility] as a transfer from [facility] for Atrial Fibrillation with RVR. Medical History Dementia, DM, Atrial fib, CAD. Per the ED report he is a poor historian Clinical Indicators: Per H&P 11/30 Questionable pneumonia Labs: 11/30 Hgb 10.9; PLT 147; Neutrophils 8.6; Lymphocytes 0.6; Cl 110; Bun 25; Cr 1.19; Calcium 7.7; Troponin 0.134 12/01 0.066; 12/01 BNP 16509, 11/30 Prolactin 1.34 CXR 11/30 Pulmonary venous HTN and interstitial edema. Treatment: 11/29 Xanax po given twice then d/c 11/30; 12/01 Ativan iv x1 ;11/29 Levaquin Ivpb daily; 11/29 Zosyn Ivpb Q 8hrs; In your professional opinion, please clarify the etiology of the Altered Mental Status, if known. * Dementia (if know, specify Type and if with/without Behavioral Disturbance) * Metabolic Encephalopathy (specify Type and Underlying Medical Illness) * Other condition (please specify) * Unable to determine (Last Revision: January 2018) Metabolic encephalopathy from hypoxemia encephalopathy MTDD
[2019-12-01] MEDS: INSULIN ASPART (NovoLOG) 100 UNIT/ML VIAL SQ SCH ×2 (12:50→17:43)
--- NOTE | 2019-12-01 13:04 | ECHOF ---
Referral Reason:elevated troponin MEASUREMENTS -------- HEIGHT: 175.3 cm WEIGHT: 93.4 kg BP: IVSd: 1.5 cm (0.6 - 1.1) LVIDd: 3.8 cm (3.9 - 5.3) LVPWd: 1.6 cm (0.6 - 1.1) IVSs: 1.6 cm LVIDs: 4.2 cm LVPWs: 2.0 cm LA Diam: 4.8 cm (2.7 - 3.8) LAESV Index (A-L): 44.71 ml/m Ao Diam: 3.4 cm (2.0 - 3.7) AV Cusp: 1.5 cm (1.5 - 2.6) LA Diam: 3.8 cm (2.7 - 3.8) MV EXCURSION: 25.380 mm (> 18.000) MV EF SLOPE: 269 mm/s (70 - 150) EPSS: 0.8 cm MV E Toro: 0.68 m/s MV DecT: 199 ms MV A Toro: 0.01 m/s MV E/A Ratio: 52.36 AR PHT: 402 ms RAP: 5.00 mmHg RVSP: 15.95 mmHg FINDINGS -------- Atrial fibrillation. Morbid Obesity This was a techncally difficult study with suboptimal views, , Lumason utilized for enhancement of im ages. The left ventricular size is normal. There is moderate concentric left ventricular hypertrophy. O verall left ventricular systolic function is low-normal with, an EF between 50 - 55 %. The right ventricle is normal in size. The left atrium is markedly dilated. LA is severely dilated >40 ml/m2 The right atrial size is normal. 5.0mg OF Lumason UTLIZED: 2 OR MORE WALL SEGMENTS NOT VISUALIZED. There is mild aortic valve sclerosis. There is [id number] aortic regurgitation. Mild mitral annular calcification present. Mild mitral regurgitation is present. Mild tricuspid regurgitation present. Right ventricular systolic pressure is normal at < 35 mmHg. There is no evidence of pulmonary hypertension. The pulmonic valve was not well visualized. The aortic root size is normal. Echo free space represents a pericardial fat pad. CONCLUSIONS -------- 1. Atrial fibrillation. 2. Morbid Obesity 3. This was a techncally difficult study with suboptimal views, , Lumason utilized for enhancement of images. 4. The left ventricular size is normal. 5. There is moderate concentric left ventricular hypertrophy. 6. Overall left ventricular systolic function is low-normal with, an EF between 50 - 55 %. 7. The right ventricle is normal in size. 8. The left atrium is markedly dilated. 9. LA is severely dilated >40 ml/m2 10. The right atrial size is normal. 11. 5.0mg OF Lumason UTLIZED: 2 OR MORE WALL SEGMENTS NOT VISUALIZED. 12. There is mild aortic valve sclerosis. 13. There is vgns-jz-huviyrms aortic regurgitation. 14. Mild mitral annular calcification present. 15. Mild mitral regurgitation is present. 16. Mild tricuspid regurgitation present. 17. Right ventricular systolic pressure is normal at < 35 mmHg. 18. There is no evidence of pulmonary hypertension. 19. The pulmonic valve was not well visualized. 20. The aortic root size is normal. 21. Echo free space represents a pericardial fat pad. BALANCER SCALE: Anny Dye RDCS
--- NOTE | 2019-12-01 14:00 | P.PN ---
Subjective Progress Note Date: 12/01/19 Principal diagnosis: Atrial fibrillation with RVR and acute diastolic congestive heart failure. This is an 84-year-old white male with history of multiple medical problems including chronic atrial fibrillation, coronary artery disease, depression, generalized anxiety disorder, dementia, patient was transferred from [facility] emergency room to [facility] were in he initially presented with altered mental status. He was found to be in atrial fibrillation with RVR. Chest x-ray questioned pneumonia and his lactic acid was borderline elevated at 2.7. Patient was given fluid boluses, he was placed on Cardizem drip after a Cardizem bolus, and he was transferred to the ICU. Patient was initially transferred to the ICU as an overflow, however considering his chest x-ray went on to develop pulmonary edema, and considering his atrial fibrillation is poorly controlled with Cardizem, the dose was increased, he is now on 10 mg per hour drip, hence I recommended full admission to the ICU rather than being overflow. The patient is an extremely poor historian, he is pleasantly confused. And cannot give any adequate history whatsoever. Looking back at previous admissions on this patient, back in February of 2018, he had history of coronary artery disease status post stenting of the distal circumflex in 2005. He had chronic diastolic heart failure. In November of 2018, patient was seen by gastroenterology for ulcerative colitis and lower GI bleeding. Underwent at the time EGD and colonoscopy with biopsies and polypectomy. At that time he was found to have active to moderate severe ulcerative colitis from the anal verge to 35 cm proximal to the colon. Reevaluated today on 12/01/2019, patient developed acute diastolic congestive heart failure overnight, he is now on BiPAP with IPAP of 12 and EPAP of 6 and FiO2 of 100%. Chest x-ray clearly shows pulmonary edema much worse compared to the admission chest x-ray. Atrial fibrillation was poorly controlled with Cardizem, hence he was switched to amiodarone earlier this morning. Patient is extremely agitated, not responding well to Xanax and/or Ativan, hence I recommended Dilaudid, patient became more agitated with Ativan. Patient is DO NOT INTUBATE CODE STATUS. Hence no plans to intubate the patient and we'll try to manage him with BiPAP if we can. In the meantime I have recommended a Lasix drip at 10 mg per hour chest x-ray is quite concerning with definite worsening pulmonary edema overnight. Renal functioning is a bit worse today creatinine is up to 1.31. His BNP level is over 15,000. Objective - Vital Signs Vital signs: Vital Signs Temp 97 F L 12/01/19 12:00 Pulse 126 H 12/01/19 13:00 Resp 23 12/01/19 13:00 BP 93/68 12/01/19 13:00 Pulse Ox 99 12/01/19 13:00 Intake & Output 11/30/19 12/01/19 12/01/19 18:59 06:59 18:59 Intake Total 650 220 295 Output Total 660 1760 555 Balance -10 -1540 -260 Weight 93.7 kg 92.9 kg Intake: IV 350 220 170 Piperacillin-Tazobactam 3 100 100 .375 gm In Sodium Chloride 0.9% 100 ml @ 25 mls/hr IVPB Q8HR [facility] Rx# :[id number] Sodium Chloride 0.9% 1, 350 120 70 000 ml @ 10 mls/hr IV . Q24H [facility] Rx#:[id number] Intake, IV Titration 100 125 Amount Diltiazem 125 mg In 125 Sodium Chloride 0.9% 100 ml @ 5 MG/HR 5 mls/hr IV .Q24H [facility] Rx#:[id number] Sodium Chloride 0.9% 500 100 ml 500 ml @ 999 mls/hr IV .Q31M STA Rx#:[id number] Oral 200 0 Output: Urine 660 1760 555 Other: Voiding Method Indwelling Catheter Indwelling Catheter - Exam Physical Exam: Revealed an 84-year-old white male on BiPAP, extremely agitated and Keeps pulling his BiPAP off. In moderate respiratory distress Head: Atraumatic, normocephalic. HEENT:[Neck is supple.] [No neck masses.] [No thyromegaly.] [No JVD.] PERRLA, EOMI, no icterus, moist mucous membranes. Chest: [Symmetrical chest expansion, diffuse crackles or rhonchi and wheezes noted bilaterally. Cardiac Exam: [Irregular irregular rhythm. Normal S1 and S2, no S3 gallop, 2/6 systolic murmur thought the precordium. Abdomen: [Obese, Soft, nontender, no megaly, no rebound, no guarding, normal bowel sounds.] Extremities: [No clubbing, trace of bipedal edema, no cyanosis.] Good pulses bilaterally. Neurological Exam: Confused, and extremely agitated. Psychiatric: Agitated mood, blunt affect, poor mental status. Skin: No rashes - Labs CBC & Chem 7: 12/01/19 04:48 12/01/19 04:48 Labs: Abnormal Lab Results - Last 24 Hours (Table) 11/30/19 11/30/19 12/01/19 Range/Units 04:37 20:40 04:48 WBC (3.8-10.6) k/uL Hgb (13.0-17.5) gm/dL Hct (39.0-53.0) % MCH (25.0-35.0) pg MCHC (31.0-37.0) g/dL RDW (11.5-15.5) % Neutrophils # (1.3-7.7) k/uL Lymphocytes # (1.0-4.8) k/uL Chloride (98-107) mmol/L Carbon Dioxide (22-30) mmol/L BUN (9-20) mg/dL Creatinine (0.66-1.25) mg/dL Glucose (74-99) mg/dL POC Glucose (mg/dL) 269 H (75-99) mg/dL Troponin I (0.000-0.034) ng/mL Total Protein (6.3-8.2) g/dL Albumin (3.5-5.0) g/dL Procalcitonin 1.34 H 0.99 H (0.02-0.09) ng/mL 12/01/19 12/01/19 12/01/19 Range/Units 04:48 04:48 07:33 WBC 16.2 H (3.8-10.6) k/uL Hgb 11.5 L (13.0-17.5) gm/dL Hct 37.6 L (39.0-53.0) % MCH 24.9 L (25.0-35.0) pg MCHC 30.7 L (31.0-37.0) g/dL RDW 18.4 H (11.5-15.5) % Neutrophils # 14.9 H (1.3-7.7) k/uL Lymphocytes # 0.7 L (1.0-4.8) k/uL Chloride 109 H (98-107) mmol/L Carbon Dioxide 20 L (22-30) mmol/L BUN 24 H (9-20) mg/dL Creatinine 1.31 H (0.66-1.25) mg/dL Glucose 177 H (74-99) mg/dL POC Glucose (mg/dL) 184 H (75-99) mg/dL Troponin I (0.000-0.034) ng/mL Total Protein 5.2 L (6.3-8.2) g/dL Albumin 2.8 L (3.5-5.0) g/dL Procalcitonin (0.02-0.09) ng/mL 12/01/19 12/01/19 Range/Units 09:24 11:58 WBC (3.8-10.6) k/uL Hgb (13.0-17.5) gm/dL Hct (39.0-53.0) % MCH (25.0-35.0) pg MCHC (31.0-37.0) g/dL RDW (11.5-15.5) % Neutrophils # (1.3-7.7) k/uL Lymphocytes # (1.0-4.8) k/uL Chloride (98-107) mmol/L Carbon Dioxide (22-30) mmol/L BUN (9-20) mg/dL Creatinine (0.66-1.25) mg/dL Glucose (74-99) mg/dL POC Glucose (mg/dL) 252 H (75-99) mg/dL Troponin I 0.066 H* (0.000-0.034) ng/mL Total Protein (6.3-8.2) g/dL Albumin (3.5-5.0) g/dL Procalcitonin (0.02-0.09) ng/mL Microbiology - Last 24 Hours (Table) 11/29/19 17:18 Blood Culture - Preliminary Blood No Growth after 24 hours Assessment and Plan Assessment: Impression: Atrial fibrillation with RVR Acute hypoxic respiratory failure secondary to pulmonary edema/acute diastolic congestive heart failure. Acute diastolic congestive heart failure, worsening pulmonary edema. History of ulcerative colitis and history of lower GI bleeding. History of coronary artery disease and previous stent placement. Chronic atrial fibrillation maintained on Eliquis. History of depression History of dementia Benign essential hypertension History of C. difficile colitis. Recommendation: Agree with changing Cardizem to amiodarone. Continue IV fluid at KVO Continue empiric antibiotics, check pro-calcitonin level. Start Lasix at 10 mg per hour drip Continue BiPAP, and titrate accordingly. Use Dilaudid when necessary for agitation and the Xanax. However if no improvement may consider Precedex drip. GI to evaluate regarding his ulcerative colitis and history of lower GI bleeding. We will continue to follow Prognosis is definitely guarded. Critical care time is 33 minutes. CODE STATUS according to his daughter is DO NOT RESUSCITATE. Time with Patient: Greater than 30
[2019-12-01] MEDS: AMIODARONE 300 MG in DEXTROSE 5% IN WATER 250 ML IV SCH ×2 (15:07)
[2019-12-01 17:09] LABS: Glucose,Whole Blood 135 mg/dL (75-99)
[2019-12-01] MEDS: SODIUM CHLORIDE 0.9% 1,000 ML IV SCH (17:09)
--- NOTE | 2019-12-01 17:35 | PN ---
PROGRESS NOTE DATE OF DICTATION: 12/01/2019 Patient is an 84-year-old pleasant white male admitted to the hospital with altered mental status and shortness of breath as well as atrial fibrillation with rapid RVR. He has history of ulcerative colitis, for which I follow him on an outpatient basis. He is at present maintained on prednisone 20 mg daily as well as Imuran 100 mg daily. The patient was having some loose bowel movements for the last one week as per his daughter, but he was having about 2 or 3 bowel movements daily. Since being in the hospital he did not have any bowel movement since 4 a.m. this morning. Patient continues to have altered mental status. Most of the history was obtained from the nursing staff and the patient. He remains on BiPAP for improving the oxygenation. PHYSICAL EXAMINATION: He is very sleepy. VITAL SIGNS: Stable. Blood pressure is 94/68, pulse rate 124, temperature 98. HEENT examination unremarkable. Conjunctivae pink. Sclerae anicteric. Oral cavity no lesions. NECK: No JVD or lymph node enlargement. CHEST: Clear to auscultation. HEART: Regular rate and rhythm. ABDOMEN: Obese. Bowel sounds are positive. No organomegaly. EXTREMITIES: No pedal edema. NEUROLOGIC: He is very sleepy. LABS: Labs from today show WBC 16.2, hemoglobin 11.5, platelets 250. Basic metabolic panel shows BUN 24, creatinine 1.31. Troponin 0.066. IMPRESSION: 1. Atrial fibrillation with rapid ventricular response. Cardiology following the patient closely. Remains on Eliquis. 2. History of ulcerative colitis diagnosed many years ago. He was steroid-dependent for almost a year, at present on Imuran 100 mg daily as well as prednisone 20 mg daily. He had 2 loose bowel movements yesterday but none today. No bleeding. Doubt exacerbation of ulcerative colitis. 3. History of congestive heart failure. 4. Altered mental status. RECOMMENDATIONS: 1. Continue with Imuran 100 mg daily. 2. Continue with prednisone 20 mg daily. 3. If he has any diarrhea, we will obtain stool for C difficile and cultures. 4. Will follow with you closely. Thank you for this consultation. MMODL / IJN: [id number] /
[2019-12-01] MEDS: LEVOFLOXACIN 750MG-D5W PMX 750 MG in DEXTROSE/WATER 1 150ML.BAG IVPB SCH (17:43)
--- NOTE | 2019-12-01 20:57 | P.PN ---
Progress Note - Text Progress Note Date: 12/01/19 Chief Complaint: A. anant with rapid ventricular rate History of presenting complaint: This is a 84-year-old patient was transferred here from [facility]. At the other hospital patient is found to be in atrial fibrillation with rapid ventricular rate. Was put on a Cardizem drip. There is a question about pneumonia, guaiac-positive stool and because of these multiple issues patient was initially admitted to the ICU. Patient himself is a poor historian. Physics Tutor bradley stable medical conditions include ulcerative colitis, congestive heart failure from gastric dysfunction EF 55%, GERD, hypertension, hyperlipidemia, primary osteoarthritis, coronary artery disease with prior history of stent, he dysfunction uses a walker. Patient admitted here a year ago and this history is obtained from the same. Admitted with Avelino. anant with rapid ventricular rate, CHF exacerbation. Today-ICU. Has been in and out of A. anant remaining in the latter. Has been put on IV amiodarone drip. Requiring BiPAP. Rather tired. Also put on IV Lasix drip. Daughter the bedside. Patient had been made DO NOT RESUSCITATE. Rather tired Review of systems: Attempted for constitutional, cardiovascular, GI, pulmonary. relevant finding as above Active Medications Acetaminophen (Tylenol Tab) 650 mg PO Q6HR PRN PRN Reason: Mild Pain or Fever > 100.5 Apixaban (Eliquis) 5 mg PO BID [facility] Last Admin: 12/01/19 11:15 Dose: Not Given Documented by: Aspirin (Aspirin) 81 mg PO DAILY [facility] Last Admin: 12/01/19 11:15 Dose: Not Given Documented by: Atorvastatin Calcium (Lipitor) 10 mg PO HS [facility] Last Admin: 11/30/19 20:58 Dose: 10 mg Documented by: Azathioprine (Imuran) 100 mg PO DAILY [facility] Last Admin: 12/01/19 11:16 Dose: Not Given Documented by: Balsalazide (Colazal) 2,250 mg PO AC-TID [facility] Last Admin: 12/01/19 17:50 Dose: Not Given Documented by: Hydromorphone HCl (Dilaudid) 1 mg IVP Q4HR PRN PRN Reason: Pain Last Admin: 12/01/19 10:59 Dose: 1 mg Documented by: Diltiazem HCl 125 mg/ Sodium (Chloride) 125 mls @ 5 mls/hr IV .Q24H [facility] Last Infusion: 12/01/19 11:01 Dose: 0 mg/hr, 0 mls/hr Documented by: Levofloxacin 750 mg/ IV (Solution) 150 mls @ 100 mls/hr IVPB Q24H [facility] Stop: 12/12/19 18:01 Last Admin: 12/01/19 17:43 Dose: 100 mls/hr Documented by: Piperacillin Sod/Tazobactam (Sod 3.375 gm/ Sodium Chloride) 100 mls @ 25 mls/hr IVPB Q8HR [facility] Stop: 12/10/19 00:01 Last Admin: 12/01/19 15:45 Dose: 25 mls/hr Documented by: Sodium Chloride (Saline 0.9%) 1,000 mls @ 10 mls/hr IV .Q24H [facility] Last Admin: 12/01/19 17:09 Dose: 10 mls/hr Documented by: Amiodarone HCl 300 mg/ (Dextrose/Water) 250 mls @ 25 mls/hr IV .Q10H [facility]; Protocol Stop: 12/02/19 09:09 Last Admin: 12/01/19 15:07 Dose: 0.5 mg/min, 25 mls/hr Documented by: Furosemide 100 mg/ Sodium (Chloride) 100 mls @ 10 mls/hr IV .Q10H [facility] Last Admin: 12/01/19 18:51 Dose: 10 mg/hr, 10 mls/hr Documented by: Insulin Aspart (Novolog) 0 unit SQ Q6H [facility]; Protocol Last Admin: 12/01/19 17:43 Dose: 1 unit Documented by: Isosorbide Mononitrate (Imdur) 30 mg PO HS [facility] Last Admin: 11/30/19 20:58 Dose: 30 mg Documented by: Linagliptin (Tradjenta) 5 mg PO DAILY [facility] Last Admin: 12/01/19 11:17 Dose: Not Given Documented by: Loratadine (Claritin) 10 mg PO DAILY PRN PRN Reason: Allergy Symptoms Mesalamine (Canasa) 1,000 mg RECTAL HS [facility] Last Admin: 11/30/19 20:59 Dose: 1,000 mg Documented by: Metoprolol Tartrate (Lopressor) 50 mg PO BID [facility] Last Admin: 12/01/19 11:15 Dose: Not Given Documented by: Miscellaneous Information (Pneumonia Protocol Utilized) 1 each PO ONCE PRN PRN Reason: Per Protocol Naloxone HCl (Narcan) 0.2 mg IV Q2M PRN PRN Reason: Opioid Reversal Nitroglycerin (Nitrostat) 0.4 mg SUBLINGUAL Q5M PRN PRN Reason: Chest Pain Pantoprazole Sodium (Protonix) 40 mg IV DAILY [facility] Last Admin: 12/01/19 11:23 Dose: 40 mg Documented by: Prednisone () 20 mg PO DAILY [facility] Last Admin: 12/01/19 11:17 Dose: Not Given Documented by: Sertraline HCl (Zoloft) 100 mg PO HS [facility] Last Admin: 11/30/19 20:58 Dose: 100 mg Documented by: Tizanidine HCl (Zanaflex) 2 mg PO BID [facility] Last Admin: 12/01/19 11:15 Dose: Not Given Documented by: Physical examination: VITAL SIGNS: [id number]% on BiPAP GENERAL: Laying bed, tired, with the BiPAP EYES: Pupils equal. Conjunctiva normal. HEENT: External appearance of nose and ears normal, oral cavity grossly normal. NECK: JVD unable to assess, masses not palpable. HEART: Heart sounds irregular no edema. LUNGS: Respiratory rate increased decreased breath sounds. ABDOMEN: Soft, nontender, liver spleen not palpable, no masses palpable. PSYCH: Rather tired to answer questions INVESTIGATIONS, reviewed in the clinical context: White count 16.2 hemoglobin 11.5 potassium 4 bun 24 crit 1.31 Previous testing White count 12.3 hemoglobin 11.3 platelets 162 potassium 3.5 bun 26 creatinine 1.25 Troponin I 0.0-6 albumin 2.7 EKG tracing personally reviewed by me-atrial flutter fibrillation with a rapid ventricular rate -Chest x-ray film personally reviewed by me-possible cardiomegaly with some venous prominence Pro-calcitonin 0.99, proBNP 15,700 Assessment: -Persistent atrial fibrillation flutter with a rapid ventricular rate, POA, slow to respond -Acute on chronic congestive heart failure from systolic dysfunction EF 45%, on Lasix drip -Acute hypoxic respiratory failure from CHF, requiring BiPAP -GERD -Essential hypertension -Hyperlipidemia -Primary osteoarthritis -Coronary artery disease with stent -Chronic gait dysfunction uses a walker -Chronic ulcerative colitis, not in exacerbation -Questionable pneumonia, -Major cognitive impairment from possibly late onset Alzheimer's dementia -DO NOT RESUSCITATE Plan: Patient is on IV amiodarone, on BiPAP, Lasix drip. Prognosis guarded. Discussed with daughter the bedside. DO NOT RESUSCITATE. Daughter states that patient's been not doing well for some time. She states this is not the quality of life that the patient is looking forward to. Did say that will discuss this further.
[2019-12-01] MEDS: MESALAMINE 1,000 MG SUPP RECTAL SCH (22:59)
[2019-12-01] MEDS: ISOSORBIDE MONONITRATE ER 30 MG TAB.ER.24H PO SCH (22:59)
[2019-12-01] MEDS: ATORVASTATIN 10 MG TAB PO SCH (22:59)
[2019-12-01] MEDS: SERTRALINE 100 MG TAB PO SCH (23:00)
[2019-12-01 23:59] LABS: Glucose,Whole Blood 149 mg/dL (75-99)
[2019-12-02] MEDS: AMIODARONE 300 MG in DEXTROSE 5% IN WATER 250 ML IV SCH ×2 (00:20)
[2019-12-02] MEDS: INSULIN ASPART (NovoLOG) 100 UNIT/ML VIAL SQ SCH ×4 (00:21→18:16)
[2019-12-02] MEDS: PIPERACILLIN-TAZOBACTAM 3.375 GM in SODIUM CHLORIDE 0.9% 100 ML IVPB SCH ×3 (00:21→18:01)
[2019-12-02] MEDS: HYDROmorphone 1 MG/ML 1 ML SYRINGE IVP PRN ×2 (00:24→15:12)
[2019-12-02] MEDS ORDERED: DEXTROSE 5% IN WATER 100 ML with AMIODARONE 150 MG IV ONE (04:30)
[2019-12-02] MEDS: FUROSEMIDE 100 MG in SODIUM CHLORIDE 0.9% 90 ML IV SCH ×2 (04:57→20:20)
[2019-12-02] MEDS ORDERED: DILTIAZEM DRIP BOLUS FROM BAG 1 MG SOLN IV ONE ×2 (06:20→09:42)
[2019-12-02 06:22] LABS: Anisocytosis Slight; Basophils % (A) 0 %; Eosinophils % (A) 0 %; HCT 38.3 % (39.0-53.0); HGB 11.6 gm/dL (13.0-17.5); Hypochromasia Moderate; Lymphocytes # (A) 0.7 k/uL (1.0-4.8); Lymphocytes % (A) 5 %; MCH 24.4 pg (25.0-35.0); MCHC 30.2 g/dL (31.0-37.0); MCV 80.8 fL (80.0-100.0); Microcytosis Slight; Monocytes # (A) 0.3 k/uL (0-1.0); Monocytes % (A) 3 %; Neutrophils # (A) 11.6 k/uL (1.3-7.7); Neutrophils % (A) 91 %; Platelet Count 220 k/uL (150-450); RBC 4.74 m/uL (4.30-5.90); RDW 19.1 % (11.5-15.5); WBC 12.8 k/uL (3.8-10.6)
[2019-12-02 06:32] LABS: Calcium 8.3 mg/dL (8.4-10.2); Potassium 3.1 mmol/L (3.5-5.1)
[2019-12-02] MEDS: BALSALAZIDE DISODIUM 750 MG CAPSULE PO SCH ×3 (06:32→18:04)
[2019-12-02] MEDS ORDERED: Potassium Replacement Protocol 1 EACH MISC MISCELLANE PRN (06:38)
[2019-12-02] MEDS: DILTIAZEM 125 MG in SODIUM CHLORIDE 0.9% 100 ML IV SCH ×2 (06:45→18:27)
[2019-12-02] MEDS: POTASSIUM CHLORIDE 10 MEQ in WATER FOR INJECTION 1 100ML.BAG IVPB SCH ×6 (06:46→22:15)
--- NOTE | 2019-12-02 08:16 | XR ---
EXAMINATION TYPE: XR chest 1V DATE OF EXAM: 12/02/2019 COMPARISON: Prior chest x-ray 12/01/2019 HISTORY: Respiratory failure, intensive care unit management TECHNIQUE: Single frontal view of the chest is obtained. FINDINGS: Patient is rotated. Interstitium is increased. Heart size not significantly changed accoun ting for differences in technique. Nodular paratracheal density is present, possible engorged azygos vein. Bibasilar airspace disease suspected. No evident pneumothorax. There are overlying cardiac lead s. IMPRESSION: Correlate for congestive heart failure. Pneumonia not excluded. Follow-up PA and lateral chest x-ray recommended when patient is stable.
[2019-12-02] MEDS ORDERED: HEPARIN SODIUM,PORCINE 5,000 UNIT/ML 1 ML VIAL IV PRN (09:39)
[2019-12-02] MEDS ORDERED: HEPARIN SODIUM,PORCINE 5,000 UNIT/ML 1 ML VIAL IV ONE (09:39)
[2019-12-02] MEDS: METOPROLOL TARTRATE 5 MG/5 ML VIAL IVP SCH ×3 (09:59→21:43)
[2019-12-02] MEDS: PANTOPRAZOLE 40 MG/10 ML VIAL IV SCH (09:59)
[2019-12-02 10:32] LABS: ABG Base Excess -4.3 mmol/L; ABG HCO3 18 mmol/L (21-25); ABG Oxygen Saturation 91.9 % (94-97); ABG PCO2 22 mmHg (35-45); ABG PH 7.54 (7.35-7.45); ABG PO2 60 mmHg (83-108); ABG TCO2 19 mmol/L (19-24); Allen Test Performed? Yes
[2019-12-02 10:44] VITALS: BMI 30.2
[2019-12-02] MEDS: ASPIRIN 81 MG PO SCH (11:17)
[2019-12-02] MEDS: azaTHIOprine 50 MG TAB PO SCH (11:17)
[2019-12-02] MEDS: tiZANidine 4 MG TAB PO SCH ×2 (11:18→20:19)
[2019-12-02] MEDS: LINAGLIPTIN 5 MG TABLET PO SCH (11:18)
[2019-12-02] MEDS: predniSONE 20 MG TAB PO SCH (11:18)
[2019-12-02 11:27] LABS: INR 2.3 (<1.2); Partial Thromboplastin Time 71.8 sec (22.0-30.0)
--- NOTE | 2019-12-02 12:03 | PN ---
PROGRESS NOTE This is an 84-year-old gentleman who was admitted to hospital with an episode of atrial fibrillation with rapid ventricular rate and developed pulmonary edema while in the hospital. She is currently on Lasix drip on intravenous Cardizem and amiodarone. Last night he developed atrial fibrillation with rapid ventricular rate. Amiodarone does not seem to be making any difference for him. He is currently on IV heparin. He is on a BiPAP and oxygenating reasonably well. PHYSICAL EXAM: Heart rate is 150 beats per minute. Blood pressure is 105/70, respiratory rate is 18. Chest exam reveals bilateral crackles with diminished air entry. Heart exam reveals first and second heart sounds and regular rhythm. Abdomen is soft. Exam of the extremities did not reveal any edema. Labs show a hemoglobin of 11.6, platelet count is 220. BUN is 32, creatinine is 1.5. Potassium is low and has been supplemented. ASSESSMENT: Persistent atrial fibrillation with rapid ventricular rate. PLAN: I will continue with intravenous Cardizem, increase the dose to 10 mg, give him a bolus. Continue with the metoprolol. Stop the IV amiodarone as it does not seem to making any difference and I will continue the Lasix drip for the pulmonary edema. An echocardiogram on this admission revealed normal LV function. MMODL / IJN: [id number] /
[2019-12-02 12:30] LABS: Glucose,Whole Blood 189 mg/dL (75-99)
--- NOTE | 2019-12-02 13:16 | CDI ---
Documentation Clarification Form Date: 12/02/2019 07:59:38 AM From: Krystin Elliott RN CCDS Admit Date: 11/29/2019 05:38:00 PM Patient Name: Nathaniel Rodriguez Visit Number: [id number] Discharge Date: ATTENTION: The Clinical Documentation Specialists (CDI) and [facility] Coding Staff appreciate your assistance in clarifying documentation. Please respond to the clarification below the line at the bottom and electronically sign. The CDI & [facility] Coding staff will review the response and follow-up if needed. Please note: Queries are made part of the Legal Health Record. If you have any questions, please contact the author of this message via ITS. Dr. Valentin Eduardo [id number] elevation myocardial infarction is documented in your progress note 12/01 Patient History/Risk Factors: 84-year-old male presents to [facility] as a transfer from [facility] for Atrial Fibrillation with RVR. Medical History HTN, HLD, Atrial Fib and Systolic CHF Clinical Indicators: Admission for Atrial fibrillation RVR Per your consult 2/5 Troponin elevation secondary to supply demand mismatch Troponin: 24 0.206; 2/5 0.158; 0.134 EKG Results: 2/ Atrial fibrillation with rapid ventricular response. Nonspecific ST and T wave abnormality Treatment: 2/ Diltiazem 125mls at 5Mls/hr IV ; 2/5 Lopressor Po Tid d/c 2; Lasix Ivp 80mg x 1; 2/6 Lopressor Po x1; 2/6 Lasix 40mg Ivp Q 8hr Dc 2; 2/6 Amiodarone 250mls at 25mls/hr Iv ; 2/6 Lasix 100 mls at 10 mls/hr Iv; For accurate documentation please indicate the Type and underlying etiology of the NSTEMI * Type II NSTEMI (please specify underlying etiology) * Unable to determine * Other Condition, please specify (Last Revision: October 2019) MTDD
--- NOTE | 2019-12-02 13:22 | P.PN ---
Subjective Progress Note Date: 12/02/19 Principal diagnosis: Atrial fibrillation with RVR and acute diastolic congestive heart failure. This is an 84-year-old white male with history of multiple medical problems including chronic atrial fibrillation, coronary artery disease, depression, generalized anxiety disorder, dementia, patient was transferred from [facility] emergency room to [facility] were in he initially presented with altered mental status. He was found to be in atrial fibrillation with RVR. Chest x-ray questioned pneumonia and his lactic acid was borderline elevated at 2.7. Patient was given fluid boluses, he was placed on Cardizem drip after a Cardizem bolus, and he was transferred to the ICU. Patient was initially transferred to the ICU as an overflow, however considering his chest x-ray went on to develop pulmonary edema, and considering his atrial fibrillation is poorly controlled with Cardizem, the dose was increased, he is now on 10 mg per hour drip, hence I recommended full admission to the ICU rather than being overflow. The patient is an extremely poor historian, he is pleasantly confused. And cannot give any adequate history whatsoever. Looking back at previous admissions on this patient, back in February of 2018, he had history of coronary artery disease status post stenting of the distal circumflex in 2005. He had chronic diastolic heart failure. In November of 2018, patient was seen by gastroenterology for ulcerative colitis and lower GI bleeding. Underwent at the time EGD and colonoscopy with biopsies and polypectomy. At that time he was found to have active to moderate severe ulcerative colitis from the anal verge to 35 cm proximal to the colon. Reevaluated today on 12/01/2019, patient developed acute diastolic congestive heart failure overnight, he is now on BiPAP with IPAP of 12 and EPAP of 6 and FiO2 of 100%. Chest x-ray clearly shows pulmonary edema much worse compared to the admission chest x-ray. Atrial fibrillation was poorly controlled with Cardizem, hence he was switched to amiodarone earlier this morning. Patient is extremely agitated, not responding well to Xanax and/or Ativan, hence I recommended Dilaudid, patient became more agitated with Ativan. Patient is DO NOT INTUBATE CODE STATUS. Hence no plans to intubate the patient and we'll try to manage him with BiPAP if we can. In the meantime I have recommended a Lasix drip at 10 mg per hour chest x-ray is quite concerning with definite worsening pulmonary edema overnight. Renal functioning is a bit worse today creatinine is up to 1.31. His BNP level is over 15,000. Reevaluated today on 12/02/2019, patient remains in the ICU, on BiPAP. Remains on Lasix drip at 10 mg per hour. His IPAP settings are 12/5 and he is presently at 40%. However his FiO2 was increased to 60% mostly because of his ABG which showed pO2 of 60 pCO2 of 22 pH of 7.54. Patient remains in atrial fibrillation with RVR, being addressed by cardiology, has been given Cardizem, amiodarone, and metoprolol patient seems to be comfortable on BiPAP. Chest x-ray continues to show slight interstitial edema, improved compared to chest x-ray yesterday. Urine output remains excellent with Lasix drip. Objective - Vital Signs Vital signs: Vital Signs Temp 98.2 F 12/02/19 12:00 Pulse 66 12/02/19 13:00 Resp 33 H 12/02/19 13:00 BP 103/71 12/02/19 13:00 Pulse Ox 99 12/02/19 13:00 Intake & Output 12/01/19 12/02/19 12/02/19 18:59 06:59 18:59 Intake Total 1178.31 575.417 10 Output Total 1095 1785 475 Balance 83.31 -1209.583 -465 Weight 92.7 kg 92.7 kg Intake: IV 320 220 10 Piperacillin-Tazobactam 3 200 .375 gm In Sodium Chloride 0.9% 100 ml @ 25 mls/hr IVPB Q8HR [facility] Rx# :[id number] Potassium Chloride 10 meq 100 In Water For Injection 1 100ml.bag @ 100 mls/hr IVPB Q1HR [facility] Rx#: [id number] Sodium Chloride 0.9% 1, 120 120 10 000 ml @ 10 mls/hr IV . Q24H [facility] Rx#:[id number] Intake, IV Titration 858.31 355.417 Amount Amiodarone 300 mg In 75 255.417 Dextrose 5% in Water 250 ml @ 0.5 MG/MIN 25 mls/hr IV .Q10H [facility] Rx#: [id number] Amiodarone 360 mg In 233.31 Dextrose 5% in Water 200 ml @ 1 MG/MIN 33.333 mls/ hr IV .Q6H [facility] Rx#: [id number] Dextrose 5% in Water 100 100 ml @ 618 mls/hr IV .Q10M [facility] with Amiodarone 150 mg Rx#:[id number] Diltiazem 125 mg In 125 Sodium Chloride 0.9% 100 ml @ 10 MG/HR 10 mls/hr IV .[id number] [facility] Rx#: [id number] Furosemide 100 mg In 125 100 Sodium Chloride 0.9% 90 ml @ 10 MG/HR 10 mls/hr IV .Q10H [facility] Rx#: [id number] Piperacillin-Tazobactam 3 200 .375 gm In Sodium Chloride 0.9% 100 ml @ 25 mls/hr IVPB Q8HR [facility] Rx# :[id number] Oral 0 Output: Urine 1095 1785 475 Other: Voiding Method Indwelling Catheter Indwelling Catheter - Exam Physical Exam: Revealed an 84-year-old white male on BiPAP, Head: Atraumatic, normocephalic. HEENT:[Neck is supple.] [No neck masses.] [No thyromegaly.] [No JVD.] PERRLA, EOMI, no icterus, moist mucous membranes. Chest: [Symmetrical chest expansion, diffuse crackles or rhonchi and wheezes noted bilaterally. Cardiac Exam: [Irregular irregular rhythm. Normal S1 and S2, no S3 gallop, 2/6 systolic murmur thought the precordium. Abdomen: [Obese, Soft, nontender, no megaly, no rebound, no guarding, normal bowel sounds.] Extremities: [No clubbing, trace of bipedal edema, no cyanosis.] Good pulses bilaterally. Neurological Exam: Confused, and extremely agitated. Psychiatric: Agitated mood, blunt affect, poor mental status. Skin: No rashes - Labs CBC & Chem 7: 12/02/19 05:12 12/02/19 05:12 Labs: Abnormal Lab Results - Last 24 Hours (Table) 12/01/19 12/01/19 12/02/19 Range/Units 17:07 23:58 05:12 WBC 12.8 H (3.8-10.6) k/uL Hgb 11.6 L (13.0-17.5) gm/dL Hct 38.3 L (39.0-53.0) % MCH 24.4 L (25.0-35.0) pg MCHC 30.2 L (31.0-37.0) g/dL RDW 19.1 H (11.5-15.5) % Neutrophils # 11.6 H (1.3-7.7) k/uL Lymphocytes # 0.7 L (1.0-4.8) k/uL PT (9.0-12.0) sec INR (<1.2) APTT (22.0-30.0) sec ABG pH (7.35-7.45) ABG pCO2 (35-45) mmHg ABG pO2 (83-108) mmHg ABG HCO3 (21-25) mmol/L ABG O2 Saturation (94-97) % Potassium (3.5-5.1) mmol/L Chloride (98-107) mmol/L Carbon Dioxide (22-30) mmol/L BUN (9-20) mg/dL Creatinine (0.66-1.25) mg/dL Glucose (74-99) mg/dL POC Glucose (mg/dL) 135 H 149 H (75-99) mg/dL Calcium (8.4-10.2) mg/dL 12/02/19 12/02/19 12/02/19 Range/Units 05:12 10:30 10:31 WBC (3.8-10.6) k/uL Hgb (13.0-17.5) gm/dL Hct (39.0-53.0) % MCH (25.0-35.0) pg MCHC (31.0-37.0) g/dL RDW (11.5-15.5) % Neutrophils # (1.3-7.7) k/uL Lymphocytes # (1.0-4.8) k/uL PT 22.0 H (9.0-12.0) sec INR 2.3 H (<1.2) APTT 71.8 H (22.0-30.0) sec ABG pH 7.54 H (7.35-7.45) ABG pCO2 22 L (35-45) mmHg ABG pO2 60 L (83-108) mmHg ABG HCO3 18 L (21-25) mmol/L ABG O2 Saturation 91.9 L (94-97) % Potassium 3.1 L (3.5-5.1) mmol/L Chloride 110 H (98-107) mmol/L Carbon Dioxide 17 L (22-30) mmol/L BUN 32 H (9-20) mg/dL Creatinine 1.59 H (0.66-1.25) mg/dL Glucose 185 H (74-99) mg/dL POC Glucose (mg/dL) (75-99) mg/dL Calcium 8.3 L (8.4-10.2) mg/dL 12/02/19 Range/Units 12:28 WBC (3.8-10.6) k/uL Hgb (13.0-17.5) gm/dL Hct (39.0-53.0) % MCH (25.0-35.0) pg MCHC (31.0-37.0) g/dL RDW (11.5-15.5) % Neutrophils # (1.3-7.7) k/uL Lymphocytes # (1.0-4.8) k/uL PT (9.0-12.0) sec INR (<1.2) APTT (22.0-30.0) sec ABG pH (7.35-7.45) ABG pCO2 (35-45) mmHg ABG pO2 (83-108) mmHg ABG HCO3 (21-25) mmol/L ABG O2 Saturation (94-97) % Potassium (3.5-5.1) mmol/L Chloride (98-107) mmol/L Carbon Dioxide (22-30) mmol/L BUN (9-20) mg/dL Creatinine (0.66-1.25) mg/dL Glucose (74-99) mg/dL POC Glucose (mg/dL) 189 H (75-99) mg/dL Calcium (8.4-10.2) mg/dL Microbiology - Last 24 Hours (Table) 11/29/19 17:18 Blood Culture - Preliminary Blood No Growth after 48 hours 11/30/19 11:22 Blood Culture - Preliminary Blood No Growth after 24 hours 11/30/19 12:03 Blood Culture - Preliminary Blood No Growth after 24 hours Assessment and Plan Assessment: Impression: Atrial fibrillation with RVR Acute hypoxic respiratory failure secondary to pulmonary edema/acute diastolic congestive heart failure. Acute diastolic congestive heart failure, worsening pulmonary edema. History of ulcerative colitis and history of lower GI bleeding. History of coronary artery disease and previous stent placement. Chronic atrial fibrillation maintained on Eliquis. History of depression History of dementia Benign essential hypertension History of C. difficile colitis. Recommendation: Continue BiPAP. And continue Cardizem as well as beta blockers.. Continue IV fluid at KVO Continue empiric antibiotics, check pro-calcitonin level. Continue Lasix at 10 mg per hour drip. Use Dilaudid when necessary for agitation, seems to work much better than benzodiazepines. GI to evaluate regarding his ulcerative colitis and history of lower GI bleeding. We will continue to follow Prognosis is definitely guarded.. CODE STATUS according to his daughter is DO NOT RESUSCITATE. Time with Patient: Less than 30
[2019-12-02] MEDS: HEPARIN SOD,PORK IN 0.45% NACL 25,000 UNIT in 0.45% NACL 1 250ML.BAG IV SCH (13:31)
[2019-12-02 13:39] LABS: Glucose,Whole Blood 209 mg/dL (75-99)
[2019-12-02 18:12] LABS: Glucose,Whole Blood 145 mg/dL (75-99)
[2019-12-02] MEDS: SODIUM CHLORIDE 0.9% 1,000 ML IV SCH (19:07)
--- NOTE | 2019-12-02 19:58 | PN ---
PROGRESS NOTE DATE OF DICTATION: 12/02/2019 This patient is an 84-year-old pleasant white male admitted to the hospital with atrial fibrillation and rapid ventricular heart rate. He subsequently developed congestive heart failure, presently on BiPAP. He continues to have altered mental status. He remains on IV Cardizem as well as IV amiodarone drip. He is being followed for a longstanding history of ulcerative colitis, presently maintained on Imuran 100 mg daily as well as prednisone 20 mg daily. He had some loose stools prior to this hospitalization, but since being in the hospital he did not have any further episodes of diarrhea. C difficile was requested but could not be done, as patient did not have any bowel movements all day yesterday. He remains very confused. PHYSICAL EXAMINATION: Vital signs show a blood pressure of 106/50, pulse rate 120 and 150 per minute and afebrile. HEENT examination unremarkable. Conjunctivae pink. Sclerae anicteric. Oral cavity no lesions. NECK: No JVD or lymph node enlargement. CHEST: Decreased breath sounds bilaterally. HEART: Tachycardia. S1 and S2 heard. ABDOMEN: Soft. Non-tender, non-distended. Bowel sounds are positive. EXTREMITIES: No pedal edema. NEUROLOGIC: He is very confused. LABS: Hemoglobin 11.6, BUN 32, creatinine 1.55, platelets 220. WBC is 12.8. PTT 22. INR is 2.3. IMPRESSION: 1. Atrial fibrillation, on IV Cardizem and IV amiodarone drip. Still rate is uncontrolled. He is also on Eliquis. 2. Ulcerative colitis; appears to be in remission. No episodes of diarrhea. Remains on prednisone 20 mg daily and Imuran 100 mg daily. 3. Exacerbation of congestive heart failure, on BiPAP. 4. Altered mental status, probably metabolic encephalopathy. RECOMMENDATIONS: 1. Continue with prednisone 20 mg daily. 2. Continue with Imuran 100 mg daily. 3. Rest of the management as per ICU and Cardiology. Will follow with you closely. Thank you for this consultation. MMODL / IJN: [id number] /
[2019-12-02] MEDS: SERTRALINE 100 MG TAB PO SCH (20:19)
[2019-12-02] MEDS: ATORVASTATIN 10 MG TAB PO SCH (20:20)
[2019-12-02] MEDS: ISOSORBIDE MONONITRATE ER 30 MG TAB.ER.24H PO SCH (20:20)
--- NOTE | 2019-12-02 20:32 | P.PN ---
Progress Note - Text Progress Note Date: 12/02/19 Chief Complaint: A. fib with rapid ventricular rate History of presenting complaint: This is a 84-year-old patient was transferred here from [facility]. At the other hospital patient is found to be in atrial fibrillation with rapid ventricular rate. Was put on a Cardizem drip. There is a question about pneumonia, guaiac-positive stool and because of these multiple issues patient was initially admitted to the ICU. Patient himself is a poor historian. Clothes Model bradley stable medical conditions include ulcerative colitis, congestive heart failure from gastric dysfunction EF 55%, GERD, hypertension, hyperlipidemia, primary osteoarthritis, coronary artery disease with prior history of stent, he dysfunction uses a walker. Patient admitted here a year ago and this history is obtained from the same. Admitted with A. fib with rapid ventricular rate, CHF exacerbation. Today-ICU. Patient has been using BiPAP most of the time. The setting of 12/5/40%. Had remained in A. fib with rapid ventricular rate. He had been on IV amiodarone. IV Cardizem was added. Early this afternoon patient did switch back to sinus rhythm. Patient has been rather tired and exhausted. Not able to eat anything. Earlier Lopressor 5 mg IV push every [address] Serrano. Review of systems: Attempted for constitutional, cardiovascular, GI, pulmonary. relevant finding as above Active Medications Acetaminophen (Tylenol Tab) 650 mg PO Q6HR PRN PRN Reason: Mild Pain or Fever > 100.5 Aspirin (Aspirin) 81 mg PO DAILY [facility] Last Admin: 12/02/19 11:17 Dose: Not Given Documented by: Atorvastatin Calcium (Lipitor) 10 mg PO HS [facility] Last Admin: 12/02/19 20:20 Dose: Not Given Documented by: Azathioprine (Imuran) 100 mg PO DAILY [facility] Last Admin: 12/02/19 11:17 Dose: Not Given Documented by: Balsalazide (Colazal) 2,250 mg PO AC-TID [facility] Last Admin: 12/02/19 18:04 Dose: Not Given Documented by: Heparin Sodium (Porcine) (Heparin) 0 unit IV PER PROTOCOL PRN; Protocol PRN Reason: Low PTT Hydromorphone HCl (Dilaudid) 1 mg IVP Q4HR PRN PRN Reason: Pain Last Admin: 12/02/19 15:12 Dose: 1 mg Documented by: Piperacillin Sod/Tazobactam (Sod 3.375 gm/ Sodium Chloride) 100 mls @ 25 mls/hr IVPB Q8HR [facility] Stop: 12/10/19 00:01 Last Admin: 12/02/19 18:01 Dose: 25 mls/hr Documented by: Sodium Chloride (Saline 0.9%) 1,000 mls @ 10 mls/hr IV .Q24H [facility] Last Admin: 12/02/19 19:07 Dose: 10 mls/hr Documented by: Furosemide 100 mg/ Sodium (Chloride) 100 mls @ 10 mls/hr IV .Q10H [facility] Last Admin: 12/02/19 20:20 Dose: 10 mg/hr, 10 mls/hr Documented by: Diltiazem HCl 125 mg/ Sodium (Chloride) 125 mls @ 5 mls/hr IV .Q24H [facility] Last Admin: 12/02/19 18:27 Dose: 10 mg/hr, 10 mls/hr Documented by: Heparin Sodium/Sodium Chloride (25,000 unit/ Sodium Chloride) 250 mls @ 9.993 mls/hr IV .Q24H [facility]; Protocol Last Admin: 12/02/19 13:31 Dose: Not Given Documented by: Levofloxacin 750 mg/ IV (Solution) 150 mls @ 100 mls/hr IVPB Q48H [facility] Stop: 12/12/19 18:01 Potassium Chloride 10 meq/ IV (Solution) 100 mls @ 100 mls/hr IVPB Q1HR [facility]; Protocol Stop: 12/02/19 23:59 Insulin Aspart (Novolog) 0 unit SQ Q6H [facility]; Protocol Last Admin: 12/02/19 18:16 Dose: 2 unit Documented by: Isosorbide Mononitrate (Imdur) 30 mg PO HS [facility] Last Admin: 12/02/19 20:20 Dose: Not Given Documented by: Linagliptin (Tradjenta) 5 mg PO DAILY [facility] Last Admin: 12/02/19 11:18 Dose: Not Given Documented by: Loratadine (Claritin) 10 mg PO DAILY PRN PRN Reason: Allergy Symptoms Mesalamine (Canasa) 1,000 mg RECTAL HS [facility] Last Admin: 12/01/19 22:59 Dose: Not Given Documented by: Metoprolol Tartrate (Lopressor) 5 mg IVP Q8HR [facility] Last Admin: 12/02/19 16:30 Dose: 5 mg Documented by: Miscellaneous Information (Pneumonia Protocol Utilized) 1 each PO ONCE PRN PRN Reason: Per Protocol Miscellaneous Information (Potassium Per Protocol) 1 each MISCELLANE DAILY PRN; Protocol PRN Reason: Per Protocol Naloxone HCl (Narcan) 0.2 mg IV Q2M PRN PRN Reason: Opioid Reversal Nitroglycerin (Nitrostat) 0.4 mg SUBLINGUAL Q5M PRN PRN Reason: Chest Pain Pantoprazole Sodium (Protonix) 40 mg IV DAILY [facility] Last Admin: 12/02/19 09:59 Dose: 40 mg Documented by: Prednisone () 20 mg PO DAILY [facility] Last Admin: 12/02/19 11:18 Dose: Not Given Documented by: Sertraline HCl (Zoloft) 100 mg PO HS [facility] Last Admin: 12/02/19 20:19 Dose: Not Given Documented by: Tizanidine HCl (Zanaflex) 2 mg PO BID [facility] Last Admin: 12/02/19 20:19 Dose: Not Given Documented by: Physical examination: VITAL SIGNS: 98.2-67-32-90/60-99% on BiPAP GENERAL: Laying bed, very tight, using BiPAP EYES: Pupils equal. Conjunctiva normal. HEENT: External appearance of nose and ears normal, oral cavity grossly normal. NECK: JVD unable to assess, masses not palpable. HEART: Heart sounds irregular no edema. LUNGS: Respiratory rate increased decreased breath sounds. ABDOMEN: Soft, nontender, liver spleen not palpable, no masses palpable. PSYCH: Rather tired to answer questions INVESTIGATIONS, reviewed in the clinical context: White count 12.8 hemoglobin 11.6 platelets 220, potassium 3.1 bun 32 creatinine 1.59 ABGs show pH of 7.5 for pO2 of 60 pCO2 of 22 Previous testing White count 12.3 hemoglobin 11.3 platelets 162 potassium 3.5 bun 26 creatinine 1.25 Troponin I 0.0-6 albumin 2.7 EKG tracing personally reviewed by me-atrial flutter fibrillation with a rapid ventricular rate -Chest x-ray film personally reviewed by me-possible cardiomegaly with some venous prominence Pro-calcitonin 0.99, proBNP 15,700 Assessment: -Persistent atrial fibrillation flutter with a rapid ventricular rate, POA, slow to respond, on IV amiodarone, IV Cardizem was added today, this afternoon went into sinus rhythm -Acute on chronic congestive heart failure from systolic dysfunction EF 45%, on Lasix drip, slow to respond -Acute hypoxic respiratory failure from CHF, requiring BiPAP, slow to respond -GERD -Essential hypertension -Hyperlipidemia -Primary osteoarthritis -Coronary artery disease with stent -Chronic gait dysfunction uses a walker -Chronic ulcerative colitis, not in exacerbation -Questionable pneumonia, -Major cognitive impairment from possibly late onset Alzheimer's dementia -DO NOT RESUSCITATE Plan: Patient remains on IV amiodarone, IV Cardizem was added, also Lopressor 5 mg IV push every 8 hours was added by cardiology. Patient requiring BiPAP all the time.. Prognosis guarded. Baseline dtsoabs-up-tscq is not good. Did tell the nurse to call me if the Dr. Núñez comes around. In the meantime continue current medication treatment plan.
[2019-12-02] MEDS: MESALAMINE 1,000 MG SUPP RECTAL SCH (20:42)
[2019-12-02 23:35] LABS: Glucose,Whole Blood 140 mg/dL (75-99)
[2019-12-03 00:45] LABS: Glucose,Whole Blood 175 mg/dL (75-99)
[2019-12-03] MEDS: PIPERACILLIN-TAZOBACTAM 3.375 GM in SODIUM CHLORIDE 0.9% 100 ML IVPB SCH ×3 (00:50→16:05)
[2019-12-03] MEDS: POTASSIUM CHLORIDE 10 MEQ in WATER FOR INJECTION 1 100ML.BAG IVPB SCH ×10 (00:51→16:06)
[2019-12-03] MEDS: INSULIN ASPART (NovoLOG) 100 UNIT/ML VIAL SQ SCH ×4 (00:51→17:41)
[2019-12-03] MEDS: HYDROmorphone 1 MG/ML 1 ML SYRINGE IVP PRN ×3 (02:19→22:05)
[2019-12-03] MEDS ORDERED: METOPROLOL TARTRATE 5 MG/5 ML VIAL IVP STA (03:22)
[2019-12-03 03:28] LABS: Anisocytosis Slight; Basophils % (A) 0 %; Eosinophils # (A) 0.1 k/uL (0-0.7); Eosinophils % (A) 1 %; HCT 38.2 % (39.0-53.0); HGB 11.5 gm/dL (13.0-17.5); Hypochromasia Slight; Lymphocytes # (A) 0.6 k/uL (1.0-4.8); Lymphocytes % (A) 5 %; MCH 24.4 pg (25.0-35.0); MCHC 30.2 g/dL (31.0-37.0); MCV 80.7 fL (80.0-100.0); Mean Platelet Volume 7.3; Microcytosis Slight; Monocytes # (A) 0.6 k/uL (0-1.0); Monocytes % (A) 5 %; Neutrophils # (A) 10.4 k/uL (1.3-7.7); Neutrophils % (A) 89 %; Platelet Count 253 k/uL (150-450); RBC 4.73 m/uL (4.30-5.90); RDW 19.2 % (11.5-15.5); WBC 11.7 k/uL (3.8-10.6)
[2019-12-03] MEDS: FUROSEMIDE 100 MG in SODIUM CHLORIDE 0.9% 90 ML IV SCH ×2 (03:29→15:18)
[2019-12-03 04:02] LABS: Calcium 7.5 mg/dL (8.4-10.2); Potassium 2.8 mmol/L (3.5-5.1)
[2019-12-03] MEDS: BALSALAZIDE DISODIUM 750 MG CAPSULE PO SCH ×3 (04:20→17:21)
[2019-12-03 05:48] LABS: Glucose,Whole Blood 131 mg/dL (75-99)
[2019-12-03] MEDS: DILTIAZEM 125 MG in SODIUM CHLORIDE 0.9% 100 ML IV SCH ×2 (06:16→16:05)
--- NOTE | 2019-12-03 06:56 | XR ---
EXAMINATION TYPE: XR chest 1V DATE OF EXAM: 12/03/2019 HISTORY: Resp. Failure. REFERENCE: Previous study dated 12/02/2019. FINDINGS: There continues to be vascular congestion and pulmonary edema. There are small effusions. T he heart is mildly enlarged. IMPRESSION: CONTINUING CHANGES OF CONGESTIVE HEART FAILURE.
[2019-12-03 07:19] LABS: INR 1.4 (<1.2); Prothrombin Time 13.7 sec (9.0-12.0)
[2019-12-03] MEDS: METOPROLOL TARTRATE 5 MG/5 ML VIAL IVP SCH ×2 (07:38→16:05)
[2019-12-03] MEDS: azaTHIOprine 50 MG TAB PO SCH (07:45)
[2019-12-03] MEDS: LINAGLIPTIN 5 MG TABLET PO SCH (07:45)
[2019-12-03] MEDS: ASPIRIN 81 MG PO SCH (07:45)
[2019-12-03] MEDS: tiZANidine 4 MG TAB PO SCH ×2 (07:46→21:49)
[2019-12-03] MEDS: predniSONE 20 MG TAB PO SCH (07:46)
[2019-12-03] MEDS: PANTOPRAZOLE 40 MG/10 ML VIAL IV SCH (08:40)
--- NOTE | 2019-12-03 11:29 | PN ---
PROGRESS NOTE DATE OF DICTATION: 12/03/2019 Patient is an 84-year-old pleasant white male admitted to hospital with atrial fibrillation with RVR and altered mental status. He remains on IV amiodarone and Cardizem drip. He is doing much better. Heart rate is under control. Patient remains on BiPAP and remains somewhat confused. History was obtained from the patient's chart. Apparently, he did not have any bowel movements in the last 24 hours. Stool for C difficile toxin was requested but was not done as he has no bowel movements. He remains on Imuran 100 mg daily and prednisone 20 mg daily for long-standing history of ulcerative colitis. PHYSICAL EXAMINATION: On physical examination, confused. Vital signs are stable. Blood pressure 103/51, pulse rate 73, temperature 98. HEENT: Examination unremarkable. Conjunctivae pink. Sclerae anicteric. Oral cavity, no lesions. NECK: No JVD or lymph node enlargement. CHEST: Clear to auscultation except decreased breath sounds bilaterally. HEART: Regular rate and rhythm. ABDOMEN: Soft, it was nontender, nondistended. Bowel sounds are positive. No organomegaly. EXTREMITIES: No pedal edema. NEURO: He is very confused. LABS: Labs from today: WBC 11.7, hemoglobin 11.5, platelets 253. INR 1.4. Basic metabolic panel show potassium 2.8, BUN is 30, creatinine 1.35. IMPRESSION: 1. Longstanding history of ulcerative colitis, maintained on prednisone 20 mg daily as well as Imuran 100 mg daily and it appears that he is doing well. No diarrhea or rectal bleeding. 2. Atrial fibrillation on Eliquis. Presently on IV amiodarone and IV Cardizem and rate has been well controlled. 3. Altered mental status. RECOMMENDATIONS: 1. Continue with prednisone 20 mg daily. 2. Continue with Imuran 100 mg daily. 3. Rest of the management as per ICU. 4. We will follow him closely during his hospital stay. Thank you for this consultation. MMODL / IJN: [id number] /
[2019-12-03] MEDS: HEPARIN SOD,PORK IN 0.45% NACL 25,000 UNIT in 0.45% NACL 1 250ML.BAG IV SCH (11:33)
[2019-12-03 12:13] LABS: Glucose,Whole Blood 149 mg/dL (75-99)
--- NOTE | 2019-12-03 13:43 | P.PN ---
Subjective Progress Note Date: 12/03/19 Principal diagnosis: Atrial fibrillation with RVR and acute diastolic congestive heart failure. This is an 84-year-old white male with history of multiple medical problems including chronic atrial fibrillation, coronary artery disease, depression, generalized anxiety disorder, dementia, patient was transferred from [facility] emergency room to [facility] were in he initially presented with altered mental status. He was found to be in atrial fibrillation with RVR. Chest x-ray questioned pneumonia and his lactic acid was borderline elevated at 2.7. Patient was given fluid boluses, he was placed on Cardizem drip after a Cardizem bolus, and he was transferred to the ICU. Patient was initially transferred to the ICU as an overflow, however considering his chest x-ray went on to develop pulmonary edema, and considering his atrial fibrillation is poorly controlled with Cardizem, the dose was increased, he is now on 10 mg per hour drip, hence I recommended full admission to the ICU rather than being overflow. The patient is an extremely poor historian, he is pleasantly confused. And cannot give any adequate history whatsoever. Looking back at previous admissions on this patient, back in February of 2018, he had history of coronary artery disease status post stenting of the distal circumflex in 2005. He had chronic diastolic heart failure. In November of 2018, patient was seen by gastroenterology for ulcerative colitis and lower GI bleeding. Underwent at the time EGD and colonoscopy with biopsies and polypectomy. At that time he was found to have active to moderate severe ulcerative colitis from the anal verge to 35 cm proximal to the colon. Reevaluated today on 12/01/2019, patient developed acute diastolic congestive heart failure overnight, he is now on BiPAP with IPAP of 12 and EPAP of 6 and FiO2 of 100%. Chest x-ray clearly shows pulmonary edema much worse compared to the admission chest x-ray. Atrial fibrillation was poorly controlled with Cardizem, hence he was switched to amiodarone earlier this morning. Patient is extremely agitated, not responding well to Xanax and/or Ativan, hence I recommended Dilaudid, patient became more agitated with Ativan. Patient is DO NOT INTUBATE CODE STATUS. Hence no plans to intubate the patient and we'll try to manage him with BiPAP if we can. In the meantime I have recommended a Lasix drip at 10 mg per hour chest x-ray is quite concerning with definite worsening pulmonary edema overnight. Renal functioning is a bit worse today creatinine is up to 1.31. His BNP level is over 15,000. Reevaluated today on 12/02/2019, patient remains in the ICU, on BiPAP. Remains on Lasix drip at 10 mg per hour. His IPAP settings are 12/5 and he is presently at 40%. However his FiO2 was increased to 60% mostly because of his ABG which showed pO2 of 60 pCO2 of 22 pH of 7.54. Patient remains in atrial fibrillation with RVR, being addressed by cardiology, has been given Cardizem, amiodarone, and metoprolol patient seems to be comfortable on BiPAP. Chest x-ray continues to show slight interstitial edema, improved compared to chest x-ray yesterday. Urine output remains excellent with Lasix drip. Reevaluated today on 12/03/2019, patient remains in the ICU, remains on Lasix drip at 10 mg per hour and Cardizem drip at 10 mg per hour. IV fluid is at KVO, chest x-ray is improving but continues to show interstitial edema. Patient remains on BiPAP, and I plan to switch him to a high flow nasal cannula today. Patient remains easily agitated, but in no form of respiratory distress at this point. Remains in atrial fibrillation intermittently, presently he is in sinus rhythm, converted early this morning. Labs today showed relatively normal CBC. Potassium is 2.8 being corrected as per protocol. Renal functioning is improving in spite of diuresis BUN is 30 creatinine 1.35. His creatinine yesterday was 1.59 Objective - Vital Signs Vital signs: Vital Signs Temp 98.4 F 12/03/19 08:00 Pulse 71 12/03/19 11:00 Resp 35 H 12/03/19 11:00 BP 100/61 12/03/19 11:00 Pulse Ox 100 12/03/19 11:00 Intake & Output 12/02/19 12/03/19 12/03/19 18:59 06:59 18:59 Intake Total 880.75 1016.50 484.667 Output Total 1175 1895 1269 Balance -294.25 -878.50 -784.333 Weight 92.7 kg 92.4 kg Intake: IV 480 820 70 Piperacillin-Tazobactam 3 100 .375 gm In Sodium Chloride 0.9% 100 ml @ 25 mls/hr IVPB Q8HR [facility] Rx# :[id number] Potassium Chloride 10 meq 400 600 In Water For Injection 1 100ml.bag @ 100 mls/hr IVPB Q1HR [facility] Rx#: [id number] Sodium Chloride 0.9% 1, 80 120 70 000 ml @ 10 mls/hr IV . Q24H [facility] Rx#:[id number] Intake, IV Titration 400.75 196.50 314.667 Amount Diltiazem 125 mg In 100.75 125.00 14.667 Sodium Chloride 0.9% 100 ml @ 5 MG/HR 5 mls/hr IV .Q24H [facility] Rx#:[id number] Furosemide 100 mg In 100 71.5 Sodium Chloride 0.9% 90 ml @ 10 MG/HR 10 mls/hr IV .Q10H [facility] Rx#: [id number] Piperacillin-Tazobactam 3 200 .375 gm In Sodium Chloride 0.9% 100 ml @ 25 mls/hr IVPB Q8HR [facility] Rx# :[id number] Potassium Chloride 10 meq 300 In Water For Injection 1 100ml.bag @ 100 mls/hr IVPB Q1HR [facility] Rx#: [id number] Lipid 100 Piperacillin-Tazobactam 3 100 .375 gm In Sodium Chloride 0.9% 100 ml @ 25 mls/hr IVPB Q8HR [facility] Rx# :[id number] Output: Urine 1175 1895 1269 Other: Voiding Method Indwelling Catheter Indwelling Catheter Indwelling Catheter - Exam Physical Exam: Revealed an 84-year-old white male on BiPAP, plan to switch him to a high flow nasal cannula. Head: Atraumatic, normocephalic. HEENT:[Neck is supple.] [No neck masses.] [No thyromegaly.] [No JVD.] PERRLA, EOMI, no icterus, moist mucous membranes. Chest: [Symmetrical chest expansion, diffuse crackles or rhonchi and wheezes noted bilaterally. Cardiac Exam: [Regular rhythm. Normal S1 and S2, no S3 gallop, 2/6 systolic murmur thought the precordium. Abdomen: [Obese, Soft, nontender, no megaly, no rebound, no guarding, normal bowel sounds.] Extremities: [No clubbing, trace of bipedal edema, no cyanosis.] Good pulses bilaterally. Neurological Exam: Confused, gets agitated easily. Psychiatric: Agitated mood, blunt affect, poor mental status. Skin: No rashes - Labs CBC & Chem 7: 12/03/19 03:06 12/03/19 03:04 Labs: Abnormal Lab Results - Last 24 Hours (Table) 12/02/19 12/02/19 12/02/19 Range/Units 13:37 18:10 18:11 WBC (3.8-10.6) k/uL Hgb (13.0-17.5) gm/dL Hct (39.0-53.0) % MCH (25.0-35.0) pg MCHC (31.0-37.0) g/dL RDW (11.5-15.5) % Neutrophils # (1.3-7.7) k/uL Lymphocytes # (1.0-4.8) k/uL PT (9.0-12.0) sec INR (<1.2) APTT (22.0-30.0) sec Sodium (137-145) mmol/L Potassium 3.1 L (3.5-5.1) mmol/L Chloride (98-107) mmol/L Carbon Dioxide (22-30) mmol/L BUN (9-20) mg/dL Creatinine (0.66-1.25) mg/dL Glucose (74-99) mg/dL POC Glucose (mg/dL) 209 H 145 H (75-99) mg/dL Plasma Lactic Acid Harpreet (0.7-2.0) mmol/L Calcium (8.4-10.2) mg/dL 12/02/19 12/03/19 12/03/19 Range/Units 23:33 00:43 03:04 WBC (3.8-10.6) k/uL Hgb (13.0-17.5) gm/dL Hct (39.0-53.0) % MCH (25.0-35.0) pg MCHC (31.0-37.0) g/dL RDW (11.5-15.5) % Neutrophils # (1.3-7.7) k/uL Lymphocytes # (1.0-4.8) k/uL PT (9.0-12.0) sec INR (<1.2) APTT (22.0-30.0) sec Sodium 146 H (137-145) mmol/L Potassium 2.8 L (3.5-5.1) mmol/L Chloride 113 H (98-107) mmol/L Carbon Dioxide 21 L (22-30) mmol/L BUN 30 H (9-20) mg/dL Creatinine 1.35 H (0.66-1.25) mg/dL Glucose 117 H (74-99) mg/dL POC Glucose (mg/dL) 140 H 175 H (75-99) mg/dL Plasma Lactic Acid Harpreet (0.7-2.0) mmol/L Calcium 7.5 L (8.4-10.2) mg/dL 12/03/19 12/03/19 12/03/19 Range/Units 03:04 03:06 04:52 WBC 11.7 H (3.8-10.6) k/uL Hgb 11.5 L (13.0-17.5) gm/dL Hct 38.2 L (39.0-53.0) % MCH 24.4 L (25.0-35.0) pg MCHC 30.2 L (31.0-37.0) g/dL RDW 19.2 H (11.5-15.5) % Neutrophils # 10.4 H (1.3-7.7) k/uL Lymphocytes # 0.6 L (1.0-4.8) k/uL PT (9.0-12.0) sec INR (<1.2) APTT 36.7 H (22.0-30.0) sec Sodium (137-145) mmol/L Potassium (3.5-5.1) mmol/L Chloride (98-107) mmol/L Carbon Dioxide (22-30) mmol/L BUN (9-20) mg/dL Creatinine (0.66-1.25) mg/dL Glucose (74-99) mg/dL POC Glucose (mg/dL) (75-99) mg/dL Plasma Lactic Acid Harpreet 2.1 H* (0.7-2.0) mmol/L Calcium (8.4-10.2) mg/dL 02/06/1412/03/19 12/03/19 Range/Units 05:47 06:42 12:11 WBC (3.8-10.6) k/uL Hgb (13.0-17.5) gm/dL Hct (39.0-53.0) % MCH (25.0-35.0) pg MCHC (31.0-37.0) g/dL RDW (11.5-15.5) % Neutrophils # (1.3-7.7) k/uL Lymphocytes # (1.0-4.8) k/uL PT 13.7 H (9.0-12.0) sec INR 1.4 H (<1.2) APTT (22.0-30.0) sec Sodium (137-145) mmol/L Potassium (3.5-5.1) mmol/L Chloride (98-107) mmol/L Carbon Dioxide (22-30) mmol/L BUN (9-20) mg/dL Creatinine (0.66-1.25) mg/dL Glucose (74-99) mg/dL POC Glucose (mg/dL) 131 H 149 H (75-99) mg/dL Plasma Lactic Acid Harpreet (0.7-2.0) mmol/L Calcium (8.4-10.2) mg/dL Microbiology - Last 24 Hours (Table) 11/29/19 17:18 Blood Culture - Preliminary Blood No Growth after 72 hours 11/30/19 11:22 Blood Culture - Preliminary Blood No Growth after 48 hours 11/30/19 12:03 Blood Culture - Preliminary Blood No Growth after 48 hours Assessment and Plan Assessment: Impression: Atrial fibrillation with RVR, converted this morning to a sinus rhythm. Acute hypoxic respiratory failure secondary to pulmonary edema/acute diastolic congestive heart failure. Acute diastolic congestive heart failure History of ulcerative colitis and history of lower GI bleeding. History of coronary artery disease and previous stent placement. Chronic atrial fibrillation maintained on Eliquis. History of depression History of dementia Benign essential hypertension History of C. difficile colitis. Recommendation: Switch BiPAP to a high flow nasal cannula. continue Cardizem as well as beta blockers.. Continue IV fluid at KVO Continue empiric antibiotics, especially with pro calcitonin noted to be elevated Continue Lasix at 10 mg per hour drip. Continue Dilaudid for agitation. Resume heparin We will continue to follow Prognosis is definitely guarded.. CODE STATUS according to his daughter is DO NOT RESUSCITATE. If no major improvement noted in the next couple of days, may have to approach to daughter about comfort care measures. Time with Patient: Less than 30
[2019-12-03 17:21] LABS: Glucose,Whole Blood 144 mg/dL (75-99)
[2019-12-03 17:29] LABS: INR 1.4 (<1.2); Partial Thromboplastin Time 51.3 sec (22.0-30.0); Prothrombin Time 13.7 sec (9.0-12.0)
[2019-12-03] MEDS: SODIUM CHLORIDE 0.9% 1,000 ML IV SCH (17:41)
[2019-12-03] MEDS ORDERED: LEVOFLOXACIN 750MG-D5W PMX 750 MG in DEXTROSE/WATER 1 150ML.BAG IVPB SCH (18:00)
--- NOTE | 2019-12-03 21:38 | P.PN ---
Progress Note - Text Progress Note Date: 12/03/19 Chief Complaint: A. fib with rapid ventricular rate History of presenting complaint: This is a 84-year-old patient was transferred here from [facility]. At the other hospital patient is found to be in atrial fibrillation with rapid ventricular rate. Was put on a Cardizem drip. There is a question about pneumonia, guaiac-positive stool and because of these multiple issues patient was initially admitted to the ICU. Patient himself is a poor historian. [employer] bradley stable medical conditions include ulcerative colitis, congestive heart failure from gastric dysfunction EF 55%, GERD, hypertension, hyperlipidemia, primary osteoarthritis, coronary artery disease with prior history of stent, he dysfunction uses a walker. Patient admitted here a year ago and this history is obtained from the same. Admitted with A. fib with rapid ventricular rate, CHF exacerbation. Patient did get IV amiodarone and IV Cardizem. Also been using BiPAP mostly. Today-ICU. Has been in and out of A. fib. 2 predominantly A. fib. Later this afternoon has been mainly in sinus rhythm. Switched to by mouth amiodarone. Remains on IV Cardizem and IV Lopressor. Did use BiPAP mostly light. No nasal cannula. Oral intakes remains to be 0. Tired lethargic Review of systems: Unable to be done as patient rather lethargic Active Medications Acetaminophen (Tylenol Tab) 650 mg PO Q6HR PRN PRN Reason: Mild Pain or Fever > 100.5 Amiodarone HCl (Cordarone) 400 mg PO BID [facility] Aspirin (Aspirin) 81 mg PO DAILY [facility] Last Admin: 12/03/19 07:45 Dose: Not Given Documented by: Atorvastatin Calcium (Lipitor) 10 mg PO HS [facility] Last Admin: 12/02/19 20:20 Dose: Not Given Documented by: Azathioprine (Imuran) 100 mg PO DAILY [facility] Last Admin: 12/03/19 07:45 Dose: Not Given Documented by: Balsalazide (Colazal) 2,250 mg PO AC-TID [facility] Last Admin: 12/03/19 17:21 Dose: Not Given Documented by: Heparin Sodium (Porcine) (Heparin) 0 unit IV PER PROTOCOL PRN; Protocol PRN Reason: Low PTT Hydromorphone HCl (Dilaudid) 1 mg IVP Q4HR PRN PRN Reason: Pain Last Admin: 12/03/19 18:20 Dose: 1 mg Documented by: Piperacillin Sod/Tazobactam (Sod 3.375 gm/ Sodium Chloride) 100 mls @ 25 mls/hr IVPB Q8HR [facility] Stop: 12/10/19 00:01 Last Admin: 12/03/19 16:05 Dose: 25 mls/hr Documented by: Sodium Chloride (Saline 0.9%) 1,000 mls @ 10 mls/hr IV .Q24H [facility] Last Admin: 12/03/19 17:41 Dose: 10 mls/hr Documented by: Furosemide 100 mg/ Sodium (Chloride) 100 mls @ 10 mls/hr IV .Q10H [facility] Last Admin: 12/03/19 15:18 Dose: 10 mg/hr, 10 mls/hr Documented by: Diltiazem HCl 125 mg/ Sodium (Chloride) 125 mls @ 5 mls/hr IV .Q24H [facility] Last Admin: 12/03/19 16:05 Dose: 10 mg/hr, 10 mls/hr Documented by: Heparin Sodium/Sodium Chloride (25,000 unit/ Sodium Chloride) 250 mls @ 9.993 mls/hr IV .Q24H [facility]; Protocol Last Admin: 12/03/19 11:33 Dose: 10.78 units/kg/hr, 9.993 mls/hr Documented by: Levofloxacin 750 mg/ IV (Solution) 150 mls @ 100 mls/hr IVPB Q48H [facility] Stop: 12/12/19 18:01 Last Admin: 12/03/19 17:41 Dose: 100 mls/hr Documented by: Insulin Aspart (Novolog) 0 unit SQ Q6H [facility]; Protocol Last Admin: 12/03/19 17:41 Dose: 2 unit Documented by: Isosorbide Mononitrate (Imdur) 30 mg PO HS [facility] Last Admin: 12/02/19 20:20 Dose: Not Given Documented by: Linagliptin (Tradjenta) 5 mg PO DAILY [facility] Last Admin: 12/03/19 07:45 Dose: Not Given Documented by: Loratadine (Claritin) 10 mg PO DAILY PRN PRN Reason: Allergy Symptoms Mesalamine (Canasa) 1,000 mg RECTAL HS [facility] Last Admin: 12/02/19 20:42 Dose: 1,000 mg Documented by: Metoprolol Tartrate (Lopressor) 5 mg IVP Q8HR [facility] Last Admin: 12/03/19 16:05 Dose: 5 mg Documented by: Miscellaneous Information (Pneumonia Protocol Utilized) 1 each PO ONCE PRN PRN Reason: Per Protocol Miscellaneous Information (Potassium Per Protocol) 1 each MISCELLANE DAILY PRN; Protocol PRN Reason: Per Protocol Naloxone HCl (Narcan) 0.2 mg IV Q2M PRN PRN Reason: Opioid Reversal Nitroglycerin (Nitrostat) 0.4 mg SUBLINGUAL Q5M PRN PRN Reason: Chest Pain Pantoprazole Sodium (Protonix) 40 mg IV DAILY [facility] Last Admin: 12/03/19 08:40 Dose: 40 mg Documented by: Prednisone () 20 mg PO DAILY [facility] Last Admin: 12/03/19 07:46 Dose: Not Given Documented by: Sertraline HCl (Zoloft) 100 mg PO HS [facility] Last Admin: 12/02/19 20:19 Dose: Not Given Documented by: Tizanidine HCl (Zanaflex) 2 mg PO BID [facility] Last Admin: 12/03/19 07:46 Dose: Not Given Documented by: Physical examination: VITAL SIGNS: 98.4-73-19-112/69-97% on 15 L high flow oxygen GENERAL: Laying bed, very lethargic, on high flow oxygen EYES: Pupils equal. Conjunctiva normal. HEENT: External appearance of nose and ears normal, oral cavity grossly normal. NECK: JVD unable to assess, masses not palpable. HEART: Heart sounds regular no edema. LUNGS: Respiratory rate increased decreased breath sounds. ABDOMEN: Soft, nontender, liver spleen not palpable, no masses palpable. PSYCH: Lethargic INVESTIGATIONS, reviewed in the clinical context: White count 11.7 hemoglobin 11.5 potassium 2.8 bun 30 creatinine 1.35 ABGs show pH of 7.5 for pO2 of 60 pCO2 of 22 Previous testing White count 12.3 hemoglobin 11.3 platelets 162 potassium 3.5 bun 26 creatinine 1.25 Troponin I 0.0-6 albumin 2.7 EKG tracing personally reviewed by me-atrial flutter fibrillation with a rapid ventricular rate -Chest x-ray film personally reviewed by me-possible cardiomegaly with some venous prominence Pro-calcitonin 0.99, proBNP 15,700 Assessment: -Persistent atrial fibrillation flutter with a rapid ventricular rate, POA, slow to respond, on by mouth amiodarone, IV Cardizem, IV Lopressor. Patient has been going in and out of atrial fibrillation. -Acute on chronic congestive heart failure from systolic dysfunction EF 45%, on Lasix drip, slow to respond -Acute hypoxic respiratory failure from CHF, requiring BiPAP, currently on 15 L of high flow nasal oxygen -GERD -Essential hypertension -Hyperlipidemia -Primary osteoarthritis -Coronary artery disease with stent -Chronic gait dysfunction uses a walker -Chronic ulcerative colitis, not in exacerbation -Questionable pneumonia, -Major cognitive impairment from possibly late onset Alzheimer's dementia -DO NOT RESUSCITATE Plan: Continue with IV Cardizem, IV Lopressor. High flow nasal cannula. Other medications to continue. Prognosis guarded. Advanced care planning: Care was discussed with patient's daughter and son-in-law. They are the legal guardians. They informed me that patient had at least 4 admissions in the near past and patient scored her life is very poor. He has been overall declining. This was not choice of his life. They want him to urology comfortable. It was decided that if the patient goes into atrial fibrillation or decompensates he will not be aggressively treated. Current medications be continued. Also d iscussed at length the BiPAP hence only the nasal cannula will be used. Hospice will be consulted for informational visit. They've chosen [facility] hospice. They'll be called in for informational visit only. Depending how the patient does take it from there further. Patient not in any pain or distress at the present time. This also discussed with nurse present at the bedside. 30 minutes were spent for this Discussion.
[2019-12-03] MEDS: SERTRALINE 100 MG TAB PO SCH (21:49)
[2019-12-03] MEDS: ATORVASTATIN 10 MG TAB PO SCH (21:49)
[2019-12-03] MEDS: AMIODARONE 200 MG TAB PO SCH (21:49)
[2019-12-03] MEDS: ISOSORBIDE MONONITRATE ER 30 MG TAB.ER.24H PO SCH (21:49)
[2019-12-03] MEDS: MESALAMINE 1,000 MG SUPP RECTAL SCH (22:11)
--- NOTE | 2019-12-03 22:53 | CONS ---
NNEKA Armstrong is an 84-year-old gentleman who is admitted to hospital with atrial fibrillation with rapid ventricular rate and developed pulmonary edema. He remains confused but respiratory status has improved and he has come back into sinus rhythm. He is going in and out of atrial fibrillation. He was on amiodarone that has been stopped. I am going to give him p.o. amiodarone if he can and will resume the IV heparin. EXAM: VITAL SIGNS: Stable. There is no jugular venous distention. Chest exam reveals diminished air entry at the bases with occasional rhonchi. Heart exam reveals first and second heart sounds. No gallop. Exam of the extremities reveals 1+ edema. Peripheral pulses are palpable. LABS: Show a hemoglobin of 11.5, platelet count is 253. His potassium is low at 2.8. ASSESSMENT: 1. Persistent atrial fibrillation. 2. Pulmonary edema. 3. Dementia. PLAN: Patient's prognosis is poor. Family is leaning towards comfort care. MMSKIPL / NATIN: [id number] /
[2019-12-04] MEDS: FUROSEMIDE 100 MG in SODIUM CHLORIDE 0.9% 90 ML IV SCH ×3 (01:21→18:21)
[2019-12-04] MEDS: METOPROLOL TARTRATE 5 MG/5 ML VIAL IVP SCH ×3 (01:22→18:21)
[2019-12-04] MEDS: PIPERACILLIN-TAZOBACTAM 3.375 GM in SODIUM CHLORIDE 0.9% 100 ML IVPB SCH ×3 (01:22→18:21)
[2019-12-04 01:32] LABS: Glucose,Whole Blood 185 mg/dL (75-99)
[2019-12-04] MEDS: INSULIN ASPART (NovoLOG) 100 UNIT/ML VIAL SQ SCH ×4 (01:38→18:21)
[2019-12-04] MEDS: HYDROmorphone 1 MG/ML 1 ML SYRINGE IVP PRN ×2 (05:10→12:31)
[2019-12-04 05:19] LABS: Anisocytosis Slight; Basophils % (A) 0 %; Eosinophils # (A) 0.1 k/uL (0-0.7); Eosinophils % (A) 1 %; HCT 40.1 % (39.0-53.0); HGB 11.9 gm/dL (13.0-17.5); Hypochromasia Moderate; Lymphocytes # (A) 0.8 k/uL (1.0-4.8); Lymphocytes % (A) 7 %; MCH 24.2 pg (25.0-35.0); MCHC 29.7 g/dL (31.0-37.0); MCV 81.7 fL (80.0-100.0); Mean Platelet Volume 7.7; Microcytosis Slight; Monocytes # (A) 0.3 k/uL (0-1.0); Monocytes % (A) 3 %; Neutrophils # (A) 9.3 k/uL (1.3-7.7); Neutrophils % (A) 88 %; Platelet Count 301 k/uL (150-450); RBC 4.91 m/uL (4.30-5.90); RDW 19.3 % (11.5-15.5); WBC 10.6 k/uL (3.8-10.6)
[2019-12-04 05:34] LABS: Calcium 8.9 mg/dL (8.4-10.2); Potassium 3.3 mmol/L (3.5-5.1)
[2019-12-04 05:40] LABS: INR 1.5 (<1.2); Partial Thromboplastin Time 45.9 sec (22.0-30.0); Prothrombin Time 14.4 sec (9.0-12.0)
--- NOTE | 2019-12-04 05:57 | XR ---
EXAMINATION TYPE: XR chest 1V DATE OF EXAM: 12/04/2019 HISTORY: Resp. Failure. REFERENCE: Previous study dated 12/03/2019. FINDINGS: There continues be vascular congestion and continuing alveolar airspace disease. There are bilateral effusions. The heart is enlarged. IMPRESSION: WORSENING CHANGES OF CONGESTIVE HEART FAILURE.
[2019-12-04] MEDS: POTASSIUM CHLORIDE 10 MEQ in WATER FOR INJECTION 1 100ML.BAG IVPB SCH ×4 (06:35→14:41)
[2019-12-04 06:46] LABS: Glucose,Whole Blood 146 mg/dL (75-99)
[2019-12-04] MEDS: AMIODARONE 200 MG TAB PO SCH (11:09)
[2019-12-04] MEDS: BALSALAZIDE DISODIUM 750 MG CAPSULE PO SCH ×3 (11:09→18:21)
[2019-12-04] MEDS: azaTHIOprine 50 MG TAB PO SCH (11:10)
[2019-12-04] MEDS: ASPIRIN 81 MG PO SCH (11:10)
[2019-12-04] MEDS: LINAGLIPTIN 5 MG TABLET PO SCH (11:10)
[2019-12-04] MEDS: predniSONE 20 MG TAB PO SCH (11:10)
[2019-12-04] MEDS: tiZANidine 4 MG TAB PO SCH (11:10)
[2019-12-04 11:55] LABS: Glucose,Whole Blood 156 mg/dL (75-99)
[2019-12-04] MEDS: PANTOPRAZOLE 40 MG/10 ML VIAL IV SCH (12:25)
--- NOTE | 2019-12-04 12:42 | PN ---
PROGRESS NOTE This is an 84-year-old gentleman who was admitted to hospital with atrial fibrillation with rapid ventricular rate and congestive heart failure. He is currently on Lasix drip, Cardizem and IV Lopressor. He is still not able to take anything orally and he may be moved to comfort soon. On exam, he is comfortable at rest. Does not seem in respiratory distress. Heart rate remains in sinus rhythm. Heart rate is well controlled. On exam, heart rate is 70 beats per minute. Blood pressure is 115/60. Respirations 18. There is no jugular venous distention. Chest exam reveals occasional rhonchi. Heart exam reveals first and second heart sounds. No gallop. Exam of the extremities reveals 1+ edema. Peripheral pulses are felt. LABORATORY DATA: Lab show a BUN of 39, creatinine is 1.4. Potassium is 3.3, hemoglobin is 11.9. ASSESSMENT: 1. Persistent atrial fibrillation, currently in sinus rhythm. 2. Acute exacerbation of systolic congestive heart failure. 3. Dementia. PLAN: I will continue the IV heparin. Stop the IV Cardizem and Lopressor. We will resume it in case he goes into atrial fibrillation again. MMODL / IJN: [id number] /
--- NOTE | 2019-12-04 14:07 | P.PN ---
Subjective Progress Note Date: 12/04/19 Principal diagnosis: Atrial fibrillation with RVR and acute diastolic congestive heart failure. This is an 84-year-old white male with history of multiple medical problems including chronic atrial fibrillation, coronary artery disease, depression, generalized anxiety disorder, dementia, patient was transferred from [facility] emergency room to [facility] were in he initially presented with altered mental status. He was found to be in atrial fibrillation with RVR. Chest x-ray questioned pneumonia and his lactic acid was borderline elevated at 2.7. Patient was given fluid boluses, he was placed on Cardizem drip after a Cardizem bolus, and he was transferred to the ICU. Patient was initially transferred to the ICU as an overflow, however considering his chest x-ray went on to develop pulmonary edema, and considering his atrial fibrillation is poorly controlled with Cardizem, the dose was increased, he is now on 10 mg per hour drip, hence I recommended full admission to the ICU rather than being overflow. The patient is an extremely poor historian, he is pleasantly confused. And cannot give any adequate history whatsoever. Looking back at previous admissions on this patient, back in February of 2018, he had history of coronary artery disease status post stenting of the distal circumflex in 2005. He had chronic diastolic heart failure. In November of 2018, patient was seen by gastroenterology for ulcerative colitis and lower GI bleeding. Underwent at the time EGD and colonoscopy with biopsies and polypectomy. At that time he was found to have active to moderate severe ulcerative colitis from the anal verge to 35 cm proximal to the colon. Reevaluated today on 12/01/2019, patient developed acute diastolic congestive heart failure overnight, he is now on BiPAP with IPAP of 12 and EPAP of 6 and FiO2 of 100%. Chest x-ray clearly shows pulmonary edema much worse compared to the admission chest x-ray. Atrial fibrillation was poorly controlled with Cardizem, hence he was switched to amiodarone earlier this morning. Patient is extremely agitated, not responding well to Xanax and/or Ativan, hence I recommended Dilaudid, patient became more agitated with Ativan. Patient is DO NOT INTUBATE CODE STATUS. Hence no plans to intubate the patient and we'll try to manage him with BiPAP if we can. In the meantime I have recommended a Lasix drip at 10 mg per hour chest x-ray is quite concerning with definite worsening pulmonary edema overnight. Renal functioning is a bit worse today creatinine is up to 1.31. His BNP level is over 15,000. Reevaluated today on 12/02/2019, patient remains in the ICU, on BiPAP. Remains on Lasix drip at 10 mg per hour. His IPAP settings are 12/5 and he is presently at 40%. However his FiO2 was increased to 60% mostly because of his ABG which showed pO2 of 60 pCO2 of 22 pH of 7.54. Patient remains in atrial fibrillation with RVR, being addressed by cardiology, has been given Cardizem, amiodarone, and metoprolol patient seems to be comfortable on BiPAP. Chest x-ray continues to show slight interstitial edema, improved compared to chest x-ray yesterday. Urine output remains excellent with Lasix drip. Reevaluated today on 12/03/2019, patient remains in the ICU, remains on Lasix drip at 10 mg per hour and Cardizem drip at 10 mg per hour. IV fluid is at KVO, chest x-ray is improving but continues to show interstitial edema. Patient remains on BiPAP, and I plan to switch him to a high flow nasal cannula today. Patient remains easily agitated, but in no form of respiratory distress at this point. Remains in atrial fibrillation intermittently, presently he is in sinus rhythm, converted early this morning. Labs today showed relatively normal CBC. Potassium is 2.8 being corrected as per protocol. Renal functioning is improving in spite of diuresis BUN is 30 creatinine 1.35. His creatinine yesterday was 1.59 Reevaluated today on 12/04/2019, remains in the ICU, presently on high flow nasal cannula, remains on Lasix drip which I will cut down to 5 mg per hour. Patient is off Cardizem, he is now in normal sinus rhythm. Chest x-ray continues to show evidence of interstitial edema. Patient remains calm, intermittently agitated, urine output seems to be excellent with Lasix drip. CBC is relatively normal sodium is 146 BUN is 39 creatinine 1.47. Objective - Vital Signs Vital signs: Vital Signs Temp 97.1 F L 12/04/19 04:00 Pulse 70 12/04/19 07:00 Resp 22 12/04/19 07:00 BP 115/62 02/09/20 07:00 Pulse Ox 98 12/04/19 07:00 Intake & Output 12/03/19 12/04/19 12/04/19 18:59 06:59 18:59 Intake Total 1075.500 220 472.333 Output Total 2249 1420 570 Balance -1173.500 -1200 -97.667 Weight 90 kg Intake: IV 120 120 250 Piperacillin-Tazobactam 3 100 .375 gm In Sodium Chloride 0.9% 100 ml @ 25 mls/hr IVPB Q8HR [facility] Rx# :[id number] Potassium Chloride 10 meq 100 In Water For Injection 1 100ml.bag @ 100 mls/hr IVPB Q1H [facility] Rx#: [id number] Sodium Chloride 0.9% 1, 120 120 50 000 ml @ 10 mls/hr IV . Q24H [facility] Rx#:[id number] Intake, IV Titration 855.500 100 222.333 Amount Diltiazem 125 mg In 105.500 125 Sodium Chloride 0.9% 100 ml @ 5 MG/HR 5 mls/hr IV .Q24H [facility] Rx#:[id number] Furosemide 100 mg In 100 100 97.333 Sodium Chloride 0.9% 90 ml @ 5 MG/HR 5 mls/hr IV .Q20H [facility] Rx#:[id number] Levofloxacin 750Mg-D5w 150 Pmx 750 mg In Dextrose/ Water 1 150ml.bag @ 100 mls/hr IVPB Q48H [facility] Rx#: [id number] Potassium Chloride 10 meq 200 In Water For Injection 1 100ml.bag @ 100 mls/hr IVPB Q1H [facility] Rx#: [id number] Potassium Chloride 10 meq 300 In Water For Injection 1 100ml.bag @ 100 mls/hr IVPB Q1HR [facility] Rx#: [id number] Lipid 100 Piperacillin-Tazobactam 3 100 .375 gm In Sodium Chloride 0.9% 100 ml @ 25 mls/hr IVPB Q8HR [facility] Rx# :[id number] Output: Urine 2249 1420 570 Other: Voiding Method Indwelling Catheter Indwelling Catheter - Exam Physical Exam: Revealed an 84-year-old white male on high flow nasal cannula at 15 L/m. Head: Atraumatic, normocephalic. HEENT:[Neck is supple.] [No neck masses.] [No thyromegaly.] [No JVD.] PERRLA, EOMI, no icterus, moist mucous membranes. Chest: [Symmetrical chest expansion, diffuse crackles or rhonchi and wheezes noted bilaterally. Cardiac Exam: [Regular rhythm. Normal S1 and S2, no S3 gallop, 2/6 systolic murmur thought the precordium. Abdomen: [Obese, Soft, nontender, no megaly, no rebound, no guarding, normal bowel sounds.] Extremities: [No clubbing, trace of bipedal edema, no cyanosis.] Good pulses bilaterally. Neurological Exam: Confused, gets agitated easily. Psychiatric: Agitated mood, blunt affect, poor mental status. Skin: No rashes - Labs CBC & Chem 7: 12/04/19 04:29 12/04/19 04:29 Labs: Abnormal Lab Results - Last 24 Hours (Table) 12/03/19 12/03/19 12/04/19 Range/Units 17:00 17:20 01:31 Hgb (13.0-17.5) gm/dL MCH (25.0-35.0) pg MCHC (31.0-37.0) g/dL RDW (11.5-15.5) % Neutrophils # (1.3-7.7) k/uL Lymphocytes # (1.0-4.8) k/uL PT 13.7 H (9.0-12.0) sec INR 1.4 H (<1.2) APTT 51.3 H (22.0-30.0) sec Sodium (137-145) mmol/L Potassium (3.5-5.1) mmol/L Chloride (98-107) mmol/L BUN (9-20) mg/dL Creatinine (0.66-1.25) mg/dL Glucose (74-99) mg/dL POC Glucose (mg/dL) 144 H 185 H (75-99) mg/dL 12/04/19 12/04/19 12/04/19 Range/Units 04:29 04:29 04:29 Hgb 11.9 L (13.0-17.5) gm/dL MCH 24.2 L (25.0-35.0) pg MCHC 29.7 L (31.0-37.0) g/dL RDW 19.3 H (11.5-15.5) % Neutrophils # 9.3 H (1.3-7.7) k/uL Lymphocytes # 0.8 L (1.0-4.8) k/uL PT 14.4 H (9.0-12.0) sec INR 1.5 H (<1.2) APTT 45.9 H (22.0-30.0) sec Sodium 146 H (137-145) mmol/L Potassium 3.3 L (3.5-5.1) mmol/L Chloride 113 H (98-107) mmol/L BUN 39 H (9-20) mg/dL Creatinine 1.47 H (0.66-1.25) mg/dL Glucose 138 H (74-99) mg/dL POC Glucose (mg/dL) (75-99) mg/dL 12/04/19 12/04/19 Range/Units 06:43 11:53 Hgb (13.0-17.5) gm/dL MCH (25.0-35.0) pg MCHC (31.0-37.0) g/dL RDW (11.5-15.5) % Neutrophils # (1.3-7.7) k/uL Lymphocytes # (1.0-4.8) k/uL PT (9.0-12.0) sec INR (<1.2) APTT (22.0-30.0) sec Sodium (137-145) mmol/L Potassium (3.5-5.1) mmol/L Chloride (98-107) mmol/L BUN (9-20) mg/dL Creatinine (0.66-1.25) mg/dL Glucose (74-99) mg/dL POC Glucose (mg/dL) 146 H 156 H (75-99) mg/dL Microbiology - Last 24 Hours (Table) 12/03/19 03:04 Blood Culture - Preliminary Blood No Growth after 24 hours 11/29/19 17:18 Blood Culture - Preliminary Blood No Growth after 96 hours 11/30/19 12:03 Blood Culture - Preliminary Blood No Growth after 72 hours 11/30/19 11:22 Blood Culture - Preliminary Blood No Growth after 72 hours Assessment and Plan Assessment: Impression: Atrial fibrillation with RVR, converted yesterday Acute hypoxic respiratory failure secondary to pulmonary edema/acute diastolic congestive heart failure. Acute diastolic congestive heart failure History of ulcerative colitis and history of lower GI bleeding. History of coronary artery disease and previous stent placement. Chronic atrial fibrillation maintained on Eliquis. History of depression History of dementia Benign essential hypertension History of C. difficile colitis. Recommendation: Continue high flow nasal cannula. Continue IV fluid at KVO Continue empiric antibiotics, Continue Lasix at 5 mg per hour Continue Dilaudid for agitation. Continue heparin. We will continue to follow Prognosis is definitely guarded.. I am quite agreeable to comfort care measures if family seems to agree with hospice referral. Time with Patient: Less than 30
[2019-12-04 18:18] VITALS: TEMP 98.2
[2019-12-04] MEDS: HEPARIN SOD,PORK IN 0.45% NACL 25,000 UNIT in 0.45% NACL 1 250ML.BAG IV SCH (18:19)
[2019-12-04] MEDS: SODIUM CHLORIDE 0.9% 1,000 ML IV SCH (18:22)
[2019-12-04 19:10] VITALS: BP 123/72; PULSE 86; RESP 35
--- NOTE | 2019-12-04 20:56 | P.DS ---
Providers Date of admission: 11/29/19 17:38 Expected date of discharge: 12/04/19 Attending physician: Lio Breen Consults: 11/29/19 17:39 Consult Physician Urgent Consulting Provider: Valentin Eduardo Consult Reason/Comments: A. fib with RVR Do you want consulting provider notified?: Yes Consult Physician Urgent Consulting Provider: Keith Lanza Consult Reason/Comments: gi hemorrhage Do you want consulting provider notified?: Yes 11/29/19 17:40 Consult Physician Urgent Consulting Provider: Jannet Paul Consult Reason/Comments: Pneumonia, sepsis Do you want consulting provider notified?: Yes Primary care physician: [facility] Course: Chief Complaint: A. fib with rapid ventricular rate Hospital course: This is a 84-year-old patient was transferred here from [facility]. At the other hospital patient is found to be in atrial fibrillation with rapid ventricular rate. Was put on a Cardizem drip. There is a question about pneumonia, guaiac-positive stool and because of these multiple issues patient was initially admitted to the ICU. Patient himself is a poor historian. Chronic stable medical conditions include ulcerative colitis, congestive heart failure from gastric dysfunction EF 55%, GERD, hypertension, hyperlipidemia, primary osteoarthritis, coronary artery disease with prior history of stent, he dysfunction uses a walker. Patient admitted here a year ago and this history is obtained from the same. Admitted with A. fib with rapid ventricular rate, CHF exacerbation. Patient did get IV amiodarone and IV Cardizem. Also been using BiPAP mostly. Patient admitted to be in and out of A. fib. Requiring high flow oxygen. Near 0 intake. Of food. Admitted for the family. Did decided to proceed with the accelerating the care. Today-patient is made no improvement at all. Minimally responding. Decisions being made to proceed with comfort measures with hospice. Care was discussed with the nurse. And with the relations liaison. Discussion and discharge planning more than 35 minutes Physical examination: VITAL SIGNS: 98.2-80-24-106/71-98% on 12 L high flow GENERAL: Laying bed, very lethargic, on high flow oxygen EYES: Pupils equal. Conjunctiva normal. HEENT: External appearance of nose and ears normal, oral cavity grossly normal. NECK: JVD unable to assess, masses not palpable. HEART: Heart sounds regular no edema. LUNGS: Respiratory rate increased decreased breath sounds. ABDOMEN: Soft, nontender, liver spleen not palpable, no masses palpable. PSYCH: Lethargic INVESTIGATIONS, reviewed in the clinical context: White count 10.6 hemoglobin 11.9 potassium 3.3 bun 39 creatinine 1.47 Previous testing White count 12.3 hemoglobin 11.3 platelets 162 potassium 3.5 bun 26 creatinine 1.25 Troponin I 0.0-6 albumin 2.7 EKG tracing personally reviewed by me-atrial flutter fibrillation with a rapid ventricular rate -Chest x-ray film personally reviewed by me-possible cardiomegaly with some venous prominence Pro-calcitonin 0.99, proBNP 15,700 Assessment: -Persistent atrial fibrillation flutter with a rapid ventricular rate, POA, slow to respond, on by mouth amiodarone, IV Cardizem, IV Lopressor. Patient has been going in and out of atrial fibrillation. -Acute on chronic congestive heart failure from systolic dysfunction EF 45%, on Lasix drip, slow to respond -Acute hypoxic respiratory failure from CHF, requiring BiPAP, currently on 15 L of high flow nasal oxygen -GERD -Essential hypertension -Hyperlipidemia -Primary osteoarthritis -Coronary artery disease with stent -Chronic gait dysfunction uses a walker -Chronic ulcerative colitis, not in exacerbation -Questionable pneumonia, -Major cognitive impairment from possibly late onset Alzheimer's dementia -DO NOT RESUSCITATE Disposition: Inpatient hospice with [facility] Patient Condition at Discharge: Poor Plan - Discharge Summary New Discharge Prescriptions: No Action Isosorbide Mononitrate ER [Imdur] 30 mg PO HS Nitroglycerin Sl Tabs [Nitrostat] 0.4 mg SUBLINGUAL Q5M PRN PRN Reason: Chest Pain Aspirin 81 mg PO DAILY Multivitamin [Men's Multi-Vitamin] 2 tab PO DAILY Simvastatin [Zocor] 20 mg PO HS Ranitidine HCl [Zantac] 150 mg PO BID ALPRAZolam [Xanax] 0.25 mg PO BID PRN PRN Reason: Anxiety Apixaban [Eliquis] 5 mg PO BID Acetaminophen [Tylenol] 1,000 mg PO DAILY PRN PRN Reason: Pain Sertraline HCl [Zoloft] 100 mg PO HS tiZANidine [Zanaflex] 2 mg PO BID predniSONE 20 mg PO DAILY azaTHIOprine [Imuran] 100 mg PO DAILY Balsalazide Disodium 2,250 mg PO AC-TID Furosemide [Lasix] 40 mg PO DAILY sitaGLIPtin PHOSPHATE [Januvia] 50 mg PO DAILY Fexofenadine HCl [Lisa Allergy] 180 mg PO DAILY PRN PRN Reason: Allergy Symptoms Mesalamine [Canasa] 1,000 mg RECTAL HS Discharge Medication List Aspirin 81 mg PO DAILY 04/29/15 [History] Isosorbide Mononitrate ER [Imdur] 30 mg PO HS 04/29/15 [History] Nitroglycerin Sl Tabs [Nitrostat] 0.4 mg SUBLINGUAL Q5M PRN 04/29/15 [History] Multivitamin [Men's Multi-Vitamin] 2 tab PO DAILY 07/28/15 [History] Simvastatin [Zocor] 20 mg PO HS 07/28/15 [History] ALPRAZolam [Xanax] 0.25 mg PO BID PRN 03/14/18 [History] Apixaban [Eliquis] 5 mg PO BID 03/14/18 [History] Ranitidine HCl [Zantac] 150 mg PO BID 03/14/18 [History] Acetaminophen [Tylenol] 1,000 mg PO DAILY PRN 11/29/18 [History] Sertraline HCl [Zoloft] 100 mg PO HS 11/29/18 [History] Balsalazide Disodium 2,250 mg PO AC-TID 11/29/19 [History] Fexofenadine HCl [Lisa Allergy] 180 mg PO DAILY PRN 11/29/19 [History] Furosemide [Lasix] 40 mg PO DAILY 11/29/19 [History] Mesalamine [Canasa] 1,000 mg RECTAL HS 11/29/19 [History] azaTHIOprine [Imuran] 100 mg PO DAILY 11/29/19 [History] predniSONE 20 mg PO DAILY 11/29/19 [History] sitaGLIPtin PHOSPHATE [Januvia] 50 mg PO DAILY 11/29/19 [History] tiZANidine [Zanaflex] 2 mg PO BID 11/29/19 [History] Follow up Appointment(s)/Referral(s): Preston Velasquez MD [Primary Care Provider] - 1-2 days [facility] , [REFERRING] - 1-2 Days
--- NOTE | 2019-12-07 07:33 | CDI ---
Documentation Clarification Form Date: 12/02/2019 07:59:38 AM From: Krystin Elliott RN CCDS Admit Date: 11/29/2019 05:38:00 PM Patient Name: Nathaniel Rodriguez Visit Number: [id number] Discharge Date: ATTENTION: The Clinical Documentation Specialists (CDI) and [facility] Coding Staff appreciate your assistance in clarifying documentation. Please respond to the clarification below the line at the bottom and electronically sign. The CDI & [facility] Coding staff will review the response and follow-up if needed. Please note: Queries are made part of the Legal Health Record. If you have any questions, please contact the author of this message via ITS. Dr. Valentin Eduardo [id number] elevation myocardial infarction is documented in your progress note 12/01 Patient History/Risk Factors: 84-year-old male presents to [facility] as a transfer from [facility] for Atrial Fibrillation with RVR. Medical History HTN, HLD, Atrial Fib and Systolic CHF Clinical Indicators: Admission for Atrial fibrillation RVR Per your consult 2/5 Troponin elevation secondary to supply demand mismatch Troponin: 24 0.206; 2/5 0.158; 0.134 EKG Results: 2/ Atrial fibrillation with rapid ventricular response. Nonspecific ST and T wave abnormality Treatment: 2/ Diltiazem 125mls at 5Mls/hr IV ; 2/5 Lopressor Po Tid d/c 2; Lasix Ivp 80mg x 1; 2/6 Lopressor Po x1; 2/6 Lasix 40mg Ivp Q 8hr Dc 2; 2/6 Amiodarone 250mls at 25mls/hr Iv ; 2/6 Lasix 100 mls at 10 mls/hr Iv; For accurate documentation please indicate the Type and underlying etiology of the NSTEMI * Type II NSTEMI (please specify underlying etiology) * Unable to determine * Other Condition, please specify (Last Revision: October 2019) MTDD
--- NOTE | 2019-12-13 09:53 | CDI ---
Documentation Clarification Form Date: 12/02/2019 07:59:38 AM From: Krystin Elliott RN CCDS Admit Date: 11/29/2019 05:38:00 PM Patient Name: Nathaniel Rodriguez Visit Number: [id number] Discharge Date: ATTENTION: The Clinical Documentation Specialists (CDI) and [facility] Coding Staff appreciate your assistance in clarifying documentation. Please respond to the clarification below the line at the bottom and electronically sign. The CDI & [facility] Coding staff will review the response and follow-up if needed. Please note: Queries are made part of the Legal Health Record. If you have any questions, please contact the author of this message via ITS. Dr. Valentin Eduardo [id number] elevation myocardial infarction is documented in your progress note 12/01 Patient History/Risk Factors: 84-year-old male presents to [facility] as a transfer from [facility] for Atrial Fibrillation with RVR. Medical History HTN, HLD, Atrial Fib and Systolic CHF Clinical Indicators: Admission for Atrial fibrillation RVR Per your consult 2/5 Troponin elevation secondary to supply demand mismatch Troponin: 2/4 0.206; 2/5 0.158; 0.134 EKG Results: 2/4 Atrial fibrillation with rapid ventricular response. Nonspecific ST and T wave abnormality Treatment: 2/ Diltiazem 125mls at 5Mls/hr IV; 2/5 Lopressor Po Tid d/c 2; Lasix Ivp 80mg x 1; 2/6 Lopressor Po x1; 2/6 Lasix 40mg Ivp Q 8hr Dc 2; 2/6 Amiodarone 250mls at 25mls/hr Iv ; 2/6 Lasix 100 mls at 10 mls/hr Iv; For accurate documentation please indicate the Type and underlying etiology of the NSTEMI Type II NSTEMI (please specify underlying etiology) NSTEMI Ruled Out Unable to determine Other Condition, please specify (Last Revision: October 2019) MTDD
--- NOTE | 2019-12-14 07:15 | CDI ---
Documentation Clarification Form Date: 12/02/2019 07:59:38 AM From: Krystin Elliott RN CCDS Admit Date: 11/29/2019 05:38:00 PM Patient Name: Nathaniel Rodriguez Visit Number: [id number] Discharge Date: ATTENTION: The Clinical Documentation Specialists (CDI) and [facility] Coding Staff appreciate your assistance in clarifying documentation. Please respond to the clarification below the line at the bottom and electronically sign. The CDI & [facility] Coding staff will review the response and follow-up if needed. Please note: Queries are made part of the Legal Health Record. If you have any questions, please contact the author of this message via ITS. Dr. Valentin Eduardo [id number] elevation myocardial infarction is documented in your progress note 12/01 Patient History/Risk Factors: 84-year-old male presents to [facility] as a transfer from [facility] for Atrial Fibrillation with RVR. Medical History HTN, HLD, Atrial Fib and Systolic CHF Clinical Indicators: Admission for Atrial fibrillation RVR Per your consult 2/5 Troponin elevation secondary to supply demand mismatch Troponin: 2/4 0.206; 2/5 0.158; 0.134 EKG Results: 2/ Atrial fibrillation with rapid ventricular response. Nonspecific ST and T wave abnormality Treatment: 2/ Diltiazem 125mls at 5Mls/hr IV; 2/5 Lopressor Po Tid d/c 2; Lasix Ivp 80mg x 1; 2/6 Lopressor Po x1; 2/6 Lasix 40mg Ivp Q 8hr Dc 2; 2/6 Amiodarone 250mls at 25mls/hr Iv ; 2/6 Lasix 100 mls at 10 mls/hr Iv; For accurate documentation please indicate the Type and underlying etiology of the NSTEMI * Type II NSTEMI (please specify underlying etiology) * NSTEMI Ruled out * Unable to determine * Other Condition, please specify (Last Revision: October 2019) MTDD
== END 2019-12-04 19:14 | disposition hospice, inpatient (51) | DRG 280 ==
LOC: EC 16:54 → 2SICU 17:38
PROVIDERS: ADMIT Hospitalist; ATTEND Hospitalist
PROC: 5A09457 Assistance with Respiratory Ventilation, 24-96 Consecutive Hours, Continuous Positive Airway Pressure (ICD-10-PCS; principal; 2019-12-01)
DX: I48.19 Other persistent atrial fibrillation (principal); I50.23 Acute on chronic systolic (congestive) heart failure; I21.4 Non-ST elevation (NSTEMI) myocardial infarction; J18.9 Pneumonia, unspecified organism; J96.01 Acute respiratory failure with hypoxia; K50.911 Crohn's disease, unspecified, with rectal bleeding; F02.81 Dementia in other diseases classified elsewhere, unspecified severity, with behavioral disturbance; G93.1 Anoxic brain damage, not elsewhere classified; I48.92 Unspecified atrial flutter; I11.0 Hypertensive heart disease with heart failure; G30.1 Alzheimer's disease with late onset; K21.9 Gastro-esophageal reflux disease without esophagitis; E11.9 Type 2 diabetes mellitus without complications; E78.5 Hyperlipidemia, unspecified; F41.1 Generalized anxiety disorder; I25.10 Atherosclerotic heart disease of native coronary artery without angina pectoris; M19.91 Primary osteoarthritis, unspecified site; F32.9 Major depressive disorder, single episode, unspecified; M19.90 Unspecified osteoarthritis, unspecified site; R26.9 Unspecified abnormalities of gait and mobility; R45.1 Restlessness and agitation; Z51.5 Encounter for palliative care; Z66 Do not resuscitate; Z79.01 Long term (current) use of anticoagulants; Z79.52 Long term (current) use of systemic steroids; Z79.82 Long term (current) use of aspirin; Z79.84 Long term (current) use of oral hypoglycemic drugs; Z79.899 Other long term (current) drug therapy; Z95.5 Presence of coronary angioplasty implant and graft; Z96.659 Presence of unspecified artificial knee joint; Z86.19 Personal history of other infectious and parasitic diseases; Z82.49 Family history of ischemic heart disease and other diseases of the circulatory system; Z81.1 Family history of alcohol abuse and dependence
CPT/HCPCS: 36410; 36415; 36600; 71045; 71046; 76937; 80048; 80053; 82550; 82805; 83605; 83735; 83880; 84132; 84145; 84484; 85025; 85610; 85730; 87040; 87502; 93005; 93306; 94660; 96365; 96366; 96368; 96375; 96376; 99291

== ENCOUNTER 2019-12-04 18:14 | Inpatient (IN) | payer MEDICAID ==
[2019-12-04] MEDS ORDERED: ONDANSETRON 4 MG/2 ML VIAL IVP PRN (18:55)
[2019-12-04] MEDS ORDERED: MORPHINE SULFATE 2 MG/ML SYRINGE IV PRN (18:55)
[2019-12-04] MEDS ORDERED: ATROPINE OPHTH SOLN 1% 5ML BTL SUBLINGUAL PRN (18:55)
[2019-12-04] MEDS ORDERED: ACETAMINOPHEN SUPPOSITORY 650 MG SUPP RECTAL PRN (18:55)
[2019-12-04] MEDS ORDERED: LORazepam 2 MG/ML INJ IV PRN (18:55)
[2019-12-04] MEDS ORDERED: BISACODYL 10 MG SUPP RECTAL PRN (19:02)
[2019-12-04] MEDS: MORPHINE SULFATE (100 MG/2 ML) 100 MG in SODIUM CHLORIDE 0.9% 100 ML IV SCH ×2 (19:49→23:46)
[2019-12-05] MEDS: MORPHINE SULFATE (100 MG/2 ML) 100 MG in SODIUM CHLORIDE 0.9% 100 ML IV SCH ×2 (02:31→04:45)
--- NOTE | 2019-12-07 23:40 | DS ---
DISCHARGE SUMMARY DATE OF ADMISSION: 12/04/19. DATE OF EXPIRATION: 12/05/19. FINAL DIAGNOSES: CAUSE OF : Coronary artery disease. OTHER MEDICAL PROBLEMS: 1. Coronary artery disease. 2. Congestive heart failure, EF 45%. 3. Hypertension. 4. Hyperlipidemia. HOSPITAL COURSE: This patient was admitted to inpatient Hospice, Comfort Care measures kit was used. The patient succumbed to the underlying condition. Family was at the bedside. The patient is under hospice care. MMODL / IJN: [id number] /
== END 2019-12-05 08:45 | disposition expired | DRG 951 ==
LOC: 2SICU 19:32
PROVIDERS: ADMIT Hospitalist; ATTEND Hospitalist
DX: Z51.5 Encounter for palliative care (principal); J18.9 Pneumonia, unspecified organism; I50.22 Chronic systolic (congestive) heart failure; K51.90 Ulcerative colitis, unspecified, without complications; I48.19 Other persistent atrial fibrillation; I11.0 Hypertensive heart disease with heart failure; G30.9 Alzheimer's disease, unspecified; F02.80 Dementia in other diseases classified elsewhere, unspecified severity, without behavioral disturbance, psychotic disturbance, mood disturbance, and anxiety; Z66 Do not resuscitate; E78.5 Hyperlipidemia, unspecified; I25.10 Atherosclerotic heart disease of native coronary artery without angina pectoris; K21.9 Gastro-esophageal reflux disease without esophagitis; M19.90 Unspecified osteoarthritis, unspecified site; R26.9 Unspecified abnormalities of gait and mobility; Z95.5 Presence of coronary angioplasty implant and graft; Z96.60 Presence of unspecified orthopedic joint implant; Z79.01 Long term (current) use of anticoagulants; Z79.82 Long term (current) use of aspirin; Z79.84 Long term (current) use of oral hypoglycemic drugs; Z79.899 Other long term (current) drug therapy